=== PATIENT | male | born 1940 | race Caucasian/White ===

== ENCOUNTER → 2023-03-25 11:54 | Outpatient (CLI) | payer MEDICARE, OTHER, SELFPAY ==
[2023-03-25 12:27] LABS: Appearance Urine UA CLOUDY; Bilirubin Urine UA NEGATIVE (NEGATIVE); Color Urine UA YELLOW; Glucose Urine UA 1+ g/dL (Negative); Ketones Urine UA NEGATIVE (NEGATIVE); Leukocyte Esterase Urine UA 3+ (NEGATIVE); Nitrite Urine UA NEGATIVE (Negative); Occult Blood Urine UA 3+ (Negative); Protein Urine UA 2+ (Negative); Urobilinogen Urine UA 0.2 E.U./dL (0.2)
[2023-03-25 12:32] LABS: Bacteria Urine Many (>30); Culture Indicated Urine Specimen Cultured; RBC Urine 30-100/HPF (0-5/HPF); Squamous Epithelial Cell Urine 1-5 /HPF (0-5/HPF); WBC Urine 30-100/HPF (0-5/HPF)
[2023-03-25 13:08] LABS: Add Manual Diff / Slide Review NO; Basophils Absolute Auto 0 /uL (0-100); Basophils Percent Auto 0.4 % (0-2); Eosinophils Absolute Auto 200 /uL (0-450); Hematocrit 36.1 % (41-53); Hemoglobin 12.1 g/dL (13.5-17.5); Lymphocytes Absolute Auto 1500 /uL (1100-4500); Mean Corpuscular HGB Conc 33.6 % (30-36); Mean Corpuscular Hemoglobin 32.4 PG (26-34); Mean Corpuscular Volume 96.4 fL (80-100); Monocytes Absolute Auto 600 /uL (0-900); Monocytes Percent Auto 8.3 % (3-14); Neutrophils Absolute Auto 5200 /uL (1500-7000); Neutrophils Percent Auto 69.3 % (50-75); Platelet Count 254 X10^3/uL (150-400); Red Blood Cell Count 3.74 X10^6/uL (4.5-5.9); Red Cell Distribution Width 15.1 % (11.6-14.8); White Blood Cell Count 7.5 X10^3/uL (4.5-11.0)
[2023-03-25 13:25] LABS: BUN Creatinine Ratio 32.9 (6-22); Blood Urea Nitrogen 23 mg/dL (9-20); Calcium 10.3 mg/dL (8.4-10.2); Carbon Dioxide 28 mmol/L (22-32); Chloride 100 mmol/L (98-107); Estimated Glomerular Filt Rate > 60 mL/min (>60); Glucose 244 mg/dL (80-110); HEMOLYSIS < 15 (0-50); Hemoglobin A1C% w Est Avg Glu 8.6 % (4.0-6.0); Potassium 3.9 mmol/L (3.4-5.1); Sodium 135 mmol/L (137-145)
== END ==
PROVIDERS: Family Provider Nurse Practitioner Family; PCP Nurse Practitioner Family; Referring Provider Orthopaedic Surgery; Visit Provider Orthopaedic Surgery
DX: Z01.818 Encounter for other preprocedural examination (principal); R73.9 Hyperglycemia, unspecified; Z01.812 Encounter for preprocedural laboratory examination; N39.0 Urinary tract infection, site not specified
CPT/HCPCS: 36415; 80048; 81001; 83036; 85025; 87077; 87086; 87186; 93005

== ENCOUNTER → 2023-03-29 15:33 | Outpatient (CLI) | payer MEDICARE, OTHER, SELFPAY ==
--- NOTE | 2023-03-29 15:34 | DI.ECHO.S_ITS ---
[facility] +---------+ : : [address] : : : : [id number] : : : : Phone: [phone]+ Echocardiogram Report + + :Name: VIKTORIA MEADOWS Study Date: 03/29/2023 Height: 67 in : :[facility] ReadingLocation: Weight: 245 lb : : Gender: Male BSA: 2.2 m2 : :: 1940 Age: 82 yrs BP: 168/100 mmHg: :Reason For Study: Shortness of Breath : :Ordering Physician: DARIANA, : :TONY Performed By: Alivia Magdaleno : :Referring: TONY WESTBROOK : + + Interpretation Summary The left ventricle is normal in size. The ejection fraction is estimated to be 55-60%. There are no obvious focal wall motion abnormalities noted but poor endocardial definition reduces the sensitivity for the detection of such. Diastolic parameters suggest a relaxation abnormality of the left ventricle, consistent with probable normal filling pressures. The left atrium grossly appears normal in size. Procedure: A two-dimensional transthoracic echocardiogram with color flow and Doppler was performed. The study quality was technically difficult. There is no prior echocardiogram noted for this patient. A contrast injection of Definity was performed to improve assessment of LV function. Left Ventricle: The left ventricle is normal in size. The ejection fraction is estimated to be 55-60%. There are no obvious focal wall motion abnormalities noted but poor endocardial definition reduces the sensitivity for the detection of such. Diastolic parameters suggest a relaxation abnormality of the left ventricle, consistent with probable normal filling pressures. Right Ventricle: The right ventricle is not well visualized. Atria: The left atrium grossly appears normal in size. Right atrium not well visualized. Mitral Valve: The mitral valve is not well visualized. There is no mitral valve stenosis. There is trace mitral regurgitation. Aortic Valve: The aortic valve is not well visualized. There is no aortic valve stenosis. No aortic regurgitation is present. Tricuspid Valve: The tricuspid valve is not well visualized. There is no tricuspid stenosis. There is trace tricuspid regurgitation. Pulmonic Valve: The pulmonic valve is not well visualized. There is no pulmonic valvular stenosis. There is trace pulmonic regurgitation. Great Vessels: The aortic root is normal size. The ascending aorta is normal in size. The pulmonary is not well visualized. The inferior vena cava was not well visualized. Pericardium/ Pleura There is no pericardial effusion. There is no pleural effusion. MMode/2D Measurements & Calculations LVOT diam: 1.9 cm LA A2 area: 9.9 cm2 Ao root diam: 2.6 cm LA A4 area: 10.1 cm2 asc Aorta Diam: 3.3 cm LA length (vol): 4.0 cm LA vol: 21.5 ml LA vol index: 9.7 ml/m2 RVD1 (basal): 4.2 cm LVLs ap4: 5.9 cm LVLd ap2: 8.2 cm LVLs ap2: 6.1 cm Doppler Measurements & Calculations Ao V2 max: 127.5 cm/sec LVOT Max Miguelito: 97.0 cm/sec Ao V2 mean: 83.0 cm/sec LV V1 max P.8 mmHg Ao max P.0 mmHg LV V1 VTI: 18.6 cm Ao mean P.5 mmHg BRENDA(I,D): 2.3 cm2 Ao V2 VTI: 22.7 cm BRENDA(V,D): 2.2 cm2 sev ratio: 0.82 BRENDA indexed to BSA (cm^2/m^2): 1.1 MV E max miguelito: 53.5 cm/sec PA V2 max: 95.9 cm/sec MV A max miguelito: 89.5 cm/sec PA V2 mean: 65.8 cm/sec MV E/A: 0.60 PA mean P.0 mmHg Med Peak E' Miguelito: 5.7 cm/sec E/E' med: 9.4 Lat Peak E' Miguelito: 5.3 cm/sec E/E' lat: 10.2 E/e' average: 9.8 MV dec time: 0.19 sec SV(LVOT): 52.7 ml AV VR_phl: 0.76 BRENDA(VTI)/BSA_phl: 1.1 Reading Physician:05:24 PM
== END ==
PROVIDERS: Family Provider Nurse Practitioner Family; PCP Nurse Practitioner Family; Referring Provider Nurse Practitioner; Visit Provider Nurse Practitioner
DX: R06.02 Shortness of breath (principal)
CPT/HCPCS: 93306; Q9957

== ENCOUNTER → 2023-05-15 13:34 | Outpatient (CLI) | payer MEDICARE, OTHER, SELFPAY ==
--- NOTE | 2023-05-16 19:11 | DI.NM.S_ITS ---
DATE OF SERVICE: 05/16/2023 PROCEDURE: Pharmacological perfusion study. INDICATIONS: Preop evaluation with underlying diabetes mellitus, hypertension and hyperlipidemia. RADIOPHARMACEUTICAL: 24.8 millicurie technetium-99m Myoview IV was injected at stress and 25.8 millicurie technetium-99m Myoview IV was injected at rest. CARDIAC STRESS: The patient underwent IV Lexiscan perfusion study under the supervision of an attending staff using standard intravenous Lexiscan protocol. The patient remained hemodynamically stable. Blood pressure 124/80 at rest. Baseline rhythm sinus. During stress, no convincing ischemic changes. No significant arrhythmias. Had minimal dyspnea. No chest discomfort. RAW DATA: There is increased subdiaphragmatic activity. There is a gut shadow encroaching the inferior border of the heart. The patient's weight is 242 pounds. GATED STUDY: Resting LV ejection fraction 73 and stress LV ejection fraction 78% without any obvious wall motion abnormalities. Resting end- diastolic volume 77 mL. TID ratio 1.16, which is within normal limits. Lung/heart ratio 0.36, which is within normal limits. MYOCARDIAL PERFUSION SCAN: Please note that this patient does not have any prone images. Stress supine and resting supine images were compared to each other. There appears to be predominantly fixed minimally decreased perfusion of distal inferolateral wall without any significant ischemic burden. CONCLUSION: 1. No obvious reversible ischemia. 2. Predominantly fixed minimally decreased perfusion of distal inferolateral wall. There are no prone images to distinguish tissue attenuation artifact versus very minimal ischemia in the distal inferolateral wall. However, on raw images there is increased subdiaphragmatic activity with gut shadow encroaching the inferior border of the heart. The patient's weight is 242 pounds. There are no wall motion abnormalities to suggest previous myocardial infarction. Stress left ventricular ejection fraction 78% and resting LV ejection fraction 73%. No transient ischemic dilatation. Hence, most likely this is due to tissue attenuation artifact. 3. Overall, low-risk myocardial perfusion study. Garrett Mathews - Alecia/tommy doc#: [id number]/job#: [id number] dd: 05/16/2023 13:09:00 dt: 05/16/2023 18:44:00 DICTATING MD/COPIES TO: Gracie Elmore MD COPIES MNE: MYESHA;
== END ==
PROVIDERS: Family Provider Nurse Practitioner Family; PCP Nurse Practitioner Family; Referring Provider Internal Medicine Cardiovascular Disease; Visit Provider Internal Medicine Cardiovascular Disease
DX: Z01.810 Encounter for preprocedural cardiovascular examination (principal); R06.02 Shortness of breath; E11.9 Type 2 diabetes mellitus without complications; I10 Essential (primary) hypertension; E78.5 Hyperlipidemia, unspecified; Z79.84 Long term (current) use of oral hypoglycemic drugs
CPT/HCPCS: 78452; 93017; A9502; J2785

== ENCOUNTER → 2023-08-20 09:06 | Outpatient (CLI) | payer MEDICARE, OTHER, SELFPAY ==
[2023-08-20 10:31] LABS: Add Manual Diff / Slide Review NO; Basophils Absolute Auto 0 /uL (0-100); Basophils Percent Auto 0.4 % (0-2); Eosinophils Absolute Auto 200 /uL (0-450); Eosinophils Percent Auto 2.7 % (2-4); Hematocrit 41.1 % (41-53); Hemoglobin 13.8 g/dL (13.5-17.5); Lymphocytes Absolute Auto 2300 /uL (1100-4500); Lymphocytes Percent Auto 30.8 % (25-40); Mean Corpuscular HGB Conc 33.5 % (30-36); Mean Corpuscular Hemoglobin 32.9 PG (26-34); Mean Corpuscular Volume 98.3 fL (80-100); Monocytes Absolute Auto 800 /uL (0-900); Monocytes Percent Auto 10.3 % (3-14); Neutrophils Absolute Auto 4100 /uL (1500-7000); Neutrophils Percent Auto 55.8 % (50-75); Platelet Count 224 X10^3/uL (150-400); Red Blood Cell Count 4.18 X10^6/uL (4.5-5.9); Red Cell Distribution Width 16.1 % (11.6-14.8); White Blood Cell Count 7.3 X10^3/uL (4.5-11.0)
[2023-08-20 11:00] LABS: BUN Creatinine Ratio 35.9 (6-22); Blood Urea Nitrogen 28 mg/dL (9-20); Calcium 10.5 mg/dL (8.4-10.2); Carbon Dioxide 29 mmol/L (22-32); Chloride 106 mmol/L (98-107); Estimated Glomerular Filt Rate > 60 mL/min (>60); Glucose 171 mg/dL (80-110); HEMOLYSIS < 15 (0-50); Potassium 4.3 mmol/L (3.4-5.1); Sodium 140 mmol/L (137-145)
== END ==
PROVIDERS: Family Provider Nurse Practitioner Family; PCP Nurse Practitioner Family; Referring Provider Orthopaedic Surgery; Visit Provider Orthopaedic Surgery
DX: Z01.812 Encounter for preprocedural laboratory examination (principal)
CPT/HCPCS: 36415; 80048; 85025

== ENCOUNTER → 2023-08-27 11:03 | Outpatient (CLI) | payer MEDICARE, OTHER, SELFPAY ==
[2023-08-27 12:32] LABS: Hemoglobin A1C% w Est Avg Glu 6.7 % (4.0-6.0)
== END ==
PROVIDERS: Family Provider Nurse Practitioner Family; PCP Nurse Practitioner; Referring Provider Orthopaedic Surgery; Visit Provider Orthopaedic Surgery
DX: R73.9 Hyperglycemia, unspecified (principal)
CPT/HCPCS: 36415; 83036

== ENCOUNTER 2023-09-05 11:57 | Inpatient (IN) | payer MEDICARE, OTHER, SELFPAY ==
[2023-08-23 09:46] VITALS: BMI 35.3
[2023-09-05] VITALS (16 sets, daily range): BP systolic 77–146; BP diastolic 42–84; PULSE 87–108; RESP 16–24; TEMP 35.7–36.8; O2SAT 91–95; BMI 34.0; BMI 35.9
--- NOTE | 2023-09-05 06:00 | DI.RAD.S_ITS ---
PROCEDURE: XR PELVIS 1-2V INDICATIONS: INNER OP TECHNIQUE: 1 view of the lower pelvis acquired. COMPARISON: None. FINDINGS: Bones: Intraoperative study shows left total hip arthroplasty in progress. Soft tissues: Overlying postoperative changes are noted. No suspicious soft tissue densities. IMPRESSION: Intraoperative image of pelvis shows left total hip arthroplasty in progress. Dictated by: Oleg Kendrick M.D. on 09/06/2023 at 11:13 Approved by: Oleg Kendrick M.D. on 09/06/2023 at 11:14
[2023-09-05] MEDS: ACETAMINOPHEN 325 MG TABLET 975 MG PO (12:59)
[2023-09-05] MEDS: CELECOXIB 200 MG CAPSULE PO (12:59)
[2023-09-05] MEDS: LACTATED RINGERS 1,000 ML 42 ML IV ×2 (12:59→17:30)
[2023-09-05] MEDS: VANCOMYCIN 1,000 MG/200 ML PIGGYBACK 200 MG IV (14:00)
[2023-09-05 14:22] LABS: Appearance Urine UA SL CLOUDY; Bilirubin Urine UA NEGATIVE (NEGATIVE); Color Urine UA YELLOW; Glucose Urine UA NEGATIVE (Negative); Ketones Urine UA NEGATIVE (NEGATIVE); Leukocyte Esterase Urine UA 3+ (NEGATIVE); Nitrite Urine UA POSITIVE (Negative); Occult Blood Urine UA 3+ (Negative); Protein Urine UA TRACE (Negative); Urobilinogen Urine UA 0.2 E.U./dL (0.2)
[2023-09-05 14:30] LABS: Urine Volume 10mL (spun)
[2023-09-05 14:31] LABS: Bacteria Urine Many (>30); Culture Indicated Urine Specimen Cultured; RBC Urine 10-30/HPF (0-5/HPF); Squamous Epithelial Cell Urine None Seen (0-5/HPF); WBC Urine >100/HPF (0-5/HPF)
--- NOTE | 2023-09-05 15:00 | PM.PREOP ---
Pre-operative Note Interval Note History & Physical reviewed/Exam performed by Physician: Yes Changes to H&P: No
--- NOTE | 2023-09-05 15:01 | PM.OP.1 ---
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 Non-operative management has failed and the patient has requested total hip replacement. The risks, benefits and alternatives to surgery were discussed with the patient prior to proceeding. Risks discussed included, but were not limited to, failure to relieve pain, leg length discrepancy, dislocation, stiffness, infection, nerve damage, deep venous thrombosis, pulmonary embolism, stroke, coma, heart attack, permanent paralysis and , as well as the potential need for eventual revision of the prosthetic. Surgeon: Gracie Contreras Mailing Machine Operator: Juventino Hall Anesthesia Type: General and Spinal Operative Notes Findings: Severe left hip osteoarthritis, extremely soft and collapsed acetabulum, adequate femoral bone, adequate stability Closure Type: primary Specimen(s): none sent Prosthetic devices, grafts, tissues, transplants, or devices: Contreras and nephew R3 50mm, neutral poly liner, one 6.5 mm screw, size 11 synergy stem uncemented high offset, 36 x 50 acetabular liner, 36+ 0 cobalt chrome head, Estimated Blood Loss (mL): 250 Blood products transfused: none Procedure in detail: The patient was seen in the pre-operative area, where the patient identified the left hip as the operative site and this was marked with my initials. The patient received pre-operative antibiotics and was taken to the operating room and placed on the operative table in the right lateral decubitus position after satisfactory anesthesia. A registered phlebotomist part time out? was performed. The left leg was prepared from the ankle to the iliac crest with ChloroPrep in the usual fashion and draped through sterile drapes. A PA was used during the procedure was essential for intraoperative retraction and safe implantation of the components. The hip was approached through an approximately 20 cm incision centered over the greater trochanter and curving gently posteriorly as it went proximally. This was carried sharply to the fascia rl, which was divided and retracted with a self retaining retractor. The trochanteric bursa was excised with care being taken to avoid the sciatic nerve, which was identified and protected throughout the case. The short external rotators were incised and the capsulomuscular flap was raised and tagged for later repair. The hip was dislocated, and a femoral neck osteotomy performed approximately 15 mm above the lesser trochanter. Retractors were placed around the femur. The canal was opened with a box cutting osteotome, followed by a T handled reamer and a lateralizing reamer. The chili pepper broach was then used, followed by sequential broaching until there was good stability of the broach in the femur. Retractors were placed to expose the acetabulum. The labrum and central soft tissues were removed. Reaming was performed initially going up in 2 mm increments, then 1 mm increments until good bite was obtained with an odd sized reamer. The cup 1 mm larger than the last reamer was then inserted using the appropriate anteversion guides. It was further stabilized with a single screw. A trial neutral liner was placed. The broach was placed in the canal. A trial head and neck were then placed and the hip relocated and checked for leg length and stability. An intraoperative film confirmed the component position and no evidence of fracture. The patient was stable in the position of sleep, of squatting, and could be put through a range of motion with 45 degrees internal rotation without dislocation. At 90 degrees flexion, internal rotation to 70?. Was possible before dislocation. This was felt to be satisfactory and the appropriate components were opened, and the trials were removed. The acetabular liner was impacted into position. There was bite on the stem but better rotational stability when went up to a size 11 stem. The final stem was then impacted into the prepared femoral canal. A brief Betadine soak was performed while trialing with head options. The hip was meticulously irrigated with normal saline. Finally the femoral head was impacted onto the stem. The acetabulum was cleared of all material and the hip relocated one final time. The capsulomuscular flap was then repaired to the greater trochanter though an awl hole using the tag sutures. The short external rotators were repaired with a nonabsorbable suture. A deep drain was placed and brought out anteriorly. The fascia rl was closed with Vicryl. The subcutaneous layer was closed with barbed sutures and skin pavel. A ghada Dressing was applied and the patient was taken to recovery having tolerated the procedure well. Complications: none Post-operative Condition: stable Disposition: Acute Care Plan for aftercare: The patient will be maintained on a standard total hip replacement protocol with weight bearing as tolerated and posterior hip precautions. The patient will receive Aspirin and sequential compression devices for DVT prophylaxis. The patient will be discharged home when safe for the home environment.
[2023-09-05] MEDS: CEFAZOLIN 2 GM/100 ML PREMIX 100 ML IV ×2 (15:47→20:41)
[2023-09-05] MEDS: TRANEXAMIC ACID 1,000 MG VIAL 1000 MG INJ ×2 (15:55→17:29)
--- NOTE | 2023-09-05 16:22 | SUR.OPER ---
Lateral on padded OR bed. Gel axillary roll. Arms secured on padded armboard with pillow supporting top arm. Padded hip positioner braces x4 - anterior and posterior chest and pelvis. Additional gel pad used anterior pelvis. Gel pad under bottom leg from knee to foot and secured with tape over sheet.
[2023-09-05] MEDS: BUPIVACAINE 0.25% (PF) 60 ML, EPINEPHrine 0.3 MG INJ (16:26)
[2023-09-05] MEDS: BUPIVACAINE LIPOSOME 266 MG/20 ML VIAL INJ (16:26)
[2023-09-05] MEDS: NYSTATIN CREAM 30 GM 1 APPLIC TOP (17:35)
--- NOTE | 2023-09-05 18:00 | DI.RAD.S_ITS ---
PROCEDURE: XR HIP W PEL IF DONE LT 2V INDICATIONS: POST OP POSTERIOR HIP LEFT TECHNIQUE: AP pelvis and lateral view of the hip acquired. COMPARISON: None. FINDINGS: Bones: Patient is status post left hip arthroplasty, with hardware components in expected positions. The hip joint appears congruent. The visualized bony structures appear intact. Soft tissues: Overlying postoperative changes are noted. No suspicious soft tissue densities. Ni catheter present. IMPRESSION: Expected post-operative appearance of a hip arthroplasty. Dictated by: Jayjay Zhang M.D. on 09/05/2023 at 19:11 Approved by: Jayjay Zhang M.D. on 09/05/2023 at 19:11
[2023-09-05] MEDS: LACTATED RINGERS 1,000 ML 100 ML IV (20:07)
[2023-09-05] MEDS: ACETAMINOPHEN 325 MG TABLET 650 MG PO (20:40)
[2023-09-05] MEDS: ASPIRIN EC 81 MG TABLET PO (20:40)
[2023-09-05] MEDS: OXYCODONE IR 5 MG TABLET PO (21:23)
[2023-09-05] MEDS: TAMSULOSIN 0.4 MG CAPSULE PO (21:23)
[2023-09-05] MEDS: IBUPROFEN 400 MG TABLET PO (21:23)
[2023-09-05] MEDS: FINASTERIDE 5 MG TABLET PO (21:23)
[2023-09-05] MEDS: DOCUSATE 100 MG CAPSULE PO (21:23)
[2023-09-05] MEDS: hydroCHLOROthiazide 25 MG TABLET 12.5 MG PO (21:44)
[2023-09-05] MEDS: INSULIN LISPRO 100 UNIT/ML 3ML VIAL SUBCUT (21:45)
[2023-09-06] VITALS (7 sets, daily range): BP systolic 97–135; BP diastolic 55–65; PULSE 70–104; RESP 17–18; TEMP 35.7–37.1; O2SAT 92–98
[2023-09-06] MEDS: IBUPROFEN 400 MG TABLET PO ×2 (01:12→07:44)
[2023-09-06] MEDS: OXYCODONE IR 5 MG TABLET PO ×6 (01:13→20:59)
[2023-09-06] MEDS: LACTATED RINGERS 1,000 ML 100 ML IV (01:13)
--- NOTE | 2023-09-06 01:29 | PC.NURSE ---
lieutenant shift supervisor: Patient arrived from PACU approximately 1850. Patient is AxOx4, VSS, left hip incision covered w/ aquacel drsg is CDI. CMS intact. Continuous tele monitoring placed. Complaints of moderate left leg pain, medicated as ordered w/ good effect. Has not gotten OOB, Q2 turning. Declined SCDs, stating that it increases pain. IVF & IV abx infused as ordered. Lung sounds are CTA. Ni in place. Oriented to room & call-light. Sleeping w/ CPAP. Plan of care ongoing.
[2023-09-06] MEDS: CEFAZOLIN 2 GM/100 ML PREMIX 100 ML IV (02:06)
[2023-09-06 04:38] LABS: Hematocrit 35.4 % (41-53)
[2023-09-06] MEDS: ACETAMINOPHEN 325 MG TABLET 650 MG PO (04:44)
[2023-09-06] MEDS: allopurinoL 100 MG TABLET 300 MG PO (08:10)
[2023-09-06] MEDS: DOCUSATE 100 MG CAPSULE PO ×2 (08:10→20:59)
[2023-09-06] MEDS: METFORMIN HCL 500 MG TABLET PO (08:11)
[2023-09-06] MEDS: ASPIRIN EC 81 MG TABLET PO ×2 (08:11→20:59)
[2023-09-06] MEDS: ATORVASTATIN 20 MG TABLET 10 MG PO (08:11)
[2023-09-06] MEDS: LORATADINE 10 MG TABLET PO (08:11)
[2023-09-06] MEDS: INSULIN LISPRO 100 UNIT/ML 3ML VIAL SUBCUT ×4 (08:14→21:00)
[2023-09-06] MEDS: INSULIN GLARGINE 100 UNIT/ML 3ML PEN 29 UNIT SUBCUT (08:19)
--- NOTE | 2023-09-06 09:05 | PT.IIE ---
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) Surgery Performed Operation Date: 09/05/23 13:45 Actual Procedures p Total Hip Arthroplasty(Left) - Gracie Contreras MD Surgical History (Last Updated 08/23/23 @ 10:14 by Mary Diego, RN) H/O vasectomy History of total left knee replacement History of total right knee replacement Hx of hernia repair Hx of laminectomy Medical History (Last Updated 08/23/23 @ 10:36 by Mary Diego RN) Diabetes (~2022) Edema Enlarged prostate Ni catheter in place (2023) HLD (hyperlipidemia) Kidney stones VILLA on CPAP Osteoarthritis Seasonal allergies Uses self-applied continuous glucose monitoring device Physical Therapy Inpatient Evaluation/Re-Eval M1 PT/OT-IP Prior Functional Status Start: 09/06/23 12:32 Freq: NEEDED Status: Active Protocol: Document 09/06/23 09:05 AB (Rec: 09/06/23 12:52 AB [id number]) Medical Review Prior Functional Status Medical History Reviewed Yes Communication able to make needs known Mobility and Gait pt stated that he was modified independent with all mobilities and ambulation using a FWW; pt able to drive prior to sx Activities of Daily Living and IADL's pt stated that he usually sponge bathes but after a few weeks goes up to 2nd level of the house to take a shower Social History Household Members none Living Arrangements House Number of Floors (Floors) Two Floors Number of Stairs To Enter/Railing? pt stays on the main level of the house has 2 steps without rails to enter the house pt has his shower upstairs: 17 steps L rail ascending + R ledge Home Environment Standard Height Toilet,Walk in Shower,Built-In Shower Seat Home Equipment Front Wheel Walker,Hand Held Shower,Grab Bars In Shower Additional Social History Comment pt has an adjustable bed and a recliner M2 PT-IP Current Condition Start: 09/06/23 12:32 Freq: NEEDED Status: Active Protocol: Document 09/06/23 09:05 AB (Rec: 09/06/23 12:52 AB [id number]) Physical Therapy Current Condition Current Condition Evaluation Date 09/06/23 Treatment Diagnosis s/p L REILLY posterior; difficulty in walking Onset Date 09/05/23 M3 PT-IP Subjective Start: 09/06/23 12:32 Freq: NEEDED Status: Active Protocol: Document 09/06/23 09:05 AB (Rec: 09/06/23 12:52 AB [id number]) Subjective Physical Therapy Visit Type Type Initial Evaluation Visit Start Time 09:05 Visit Stop Time 10:05 Number of SIZER HAND Visits 0 Physical Therapy Visit Comments Patient Comments agreeable to do PT Therapy Pain Assessment Pain When Pain Assessed At Rest Pain Present Pain Present Pain Reported Location Left Lower Leg Intensity 7 Scale Used Numeric (0 - 10) Description Sharp Pain Behaviors Facial Grimacing,Guarding, Holding Area,Restlessness, Wincing Pain Management Techniques Apply Cold,Distraction, Modification of Treatment,Re- positioning,Timing of Activity with Medications M4 PT-IP Mobility and Gait Start: 09/06/23 12:32 Freq: NEEDED Status: Active Protocol: Document 09/06/23 09:05 AB (Rec: 09/06/23 12:52 AB [id number]) PT-Bed Mobility Assessment Supine to Sit Supine to Sit Maximum Assistance,1 Person Assistance Scooting Scooting to Edge of Bed Maximum Assistance PT-Transfer Assessment Sit to and From Stand Sit to and from Stand Maximum Assistance,2 Person Assistance,Use of Upper Extremities Equipment Transfer Assistive Device Gait Belt,Front Wheeled Walker Orthotic/Prosthetic Devices or Brace: No Transfers Transfer Destination Chair Transfer Technique Squat Pivot Transfer Ability Level of Assist Maximum Assistance,2 Person Assistance,Use of Upper Extremities Comments Mobility Comments pt supine in bed and agreeable to do PT. obtained PLOF and home set up from pt. pt stated that he lives alone and he plans to go to SNF and that the ortho doctor is aware and will process SNF placement per pt. post-op folder provided to pt and reviewed contents. educated pt regarding posterior hip precautions. pt able to recall 2/3 posterior hip precautions. BP in supine: 111/64 VT: 107 and O2 sat 90-93% pt completed supine to sit max A and max cues. required max A x 1-2 for scooting to EOB. BP in sittin/87 and VT 116/-124. O2 sat: 91-92% at RA. pt has 1/5 MMT strength on L foot presenting a foot drop. pt completed sit to stand max A x 2 and max cues with (+) L knee buckling. instructed pt to sit back on EOB. educated on L quads activation. pt completed sit to stand again max A x 2 and max cues. pt continues to be unsteady unable to maintain standing position despite max A x 2 using a FWW. pt sat back on EOB. positioned chair next to pt. attempted transfer to chair and completed partial stand/squat pivot transfer max A x 2 and max cues with pt reaching for arm rest of chair and PT stabilizing pt and LLE . positioned pt on the chair. call light and table placed within reach. Nurse in room and assist pt with PT. informed nurse that pt will require a mechanical lift for transfers with nursing staff at this time. Gait Assessment Comments Gait Comments unable at this time PT-Balance Assessment Sitting Balance and Reactions Static Sitting Balance Ability Good Dynamic Sitting Balance Ability Fair Standing Balance and Reactions Static Standing Balance Ability Poor Dynamic Standing Balance Ability Poor Device Used FWW M5 PT-IP Objective Assessments Start: 09/06/23 12:32 Freq: NEEDED Status: Active Protocol: Document 09/06/23 09:05 AB (Rec: 09/06/23 12:52 [id number]) Orientation Orientation/Cognition Level of Alertness Alert Orientation Name,Place,Situation Language Function Ability No Deficits Noted Safety Awareness Decreased Safety Awareness Memory Description Short Term Impaired Gross Range of Motion Lower Extremity ROM Assessment Within Functional Limits Strength Lower Extremity Strength Assessment Left Impaired Hip 3+/5 Knee 3+/5 Ankle DF: 1/5 Sensation Assessment Sensation Gross Sensation WNL Muscle Tone Comments Muscle Tone Comments L foot drop M6 PT-IP Treatment Start: 09/06/23 12:32 Freq: NEEDED Status: Active Protocol: Document 09/06/23 09:05 AB (Rec: 09/06/23 12:52 [id number]) Physical Therapy Treatment Education Education Provided Precautions,Weight Bearing Status,Post-Op Packet,Safety M7 PT-IP Assessment and Plan Start: 09/06/23 12:32 Freq: NEEDED Status: Active Protocol: Document 09/06/23 09:05 AB (Rec: 09/06/23 12:52 [id number]) PT Summary Assessment and Plan Potential Rehabilitation Potential Fair Status of Condition at Evaluation Evolving Summary Impairments Pain,ROM,Strength,Balance, Coordination,Sensation,Tone, Cognition,Bed Mobility, Transfers,Gait,Activity Tolerance Assessment Summary pt is an 83 y/o M s/p L REILLY posterior approach POD 1. pt with L hip posterior precautions and is WBAT. pt requiring max A x 2 for transfers with (+) L knee buckling and has L foot drop. Recommending use of mechanical lift transfers with nursing staff at this time. Pt will require SNF rehab to improve overall strength and mobility. Goals Bed Mobility Goal Minimal Assistance Transfer Goal Minimal Assistance,Front Wheeled Walker Gait Goal Minimal Assistance,Front Wheel Walker Gait Distance 25 Other Goals improve bed mobility, trasnfers, ambulation using LRAD ~ 150 ft mod I up/down 2 steps using LRAD SBA Days to Meet Goals 10 Frequency of Treatment Frequency Of Treatment Twice a Day Treatment Plan Physical Therapy Treatment Plan Bed Mobility Training,Transfer Training,Gait Training, Therapeutic Exercise,Balance Retraining,Post Op Education, Discharge Planning,Hot or Cold Pack,Neuromuscular Re-ed, Coordination Retraining,Manual Therapy Precautions Posterior Hip Precautions No Hip Flexion > 90 degrees,No Hip Internal Rotation,No Hip Adduction Weight Bearing Status Weight Bearing Status Weight Bear as Tolerated Allowed Weight Bearing Amount (enter % LLE WBAT or #) (%) Recommendations To Nursing Amount of Assist Needed Mechanical Lift Discharge Recommendations PT Discharge Recommendations SNF Rehab Transportation Needs at Discharge Wheelchair/Cabulance
--- NOTE | 2023-09-06 11:47 | CM.DANOTE ---
Addendum entered by CIPRIANO Trejo 09/06/23 12:37: ADD: Return call from Jessica at [facility] and she confirms they can accept pt and if ready Sun they should have the staff to accept on the weekend. BF Original Note: Patient is an 83 yo male who was [place] on 09/05[place]23 for LTHA. Pt has [employer] and [employer] for insurance and his PCP is Naomie Helm. EMR was reviewed. Per Ortho, pt tolerated procedure well and to work with PT/OT today and likely SNF at discharge. PT/OT ordered and pending for today. SW met bedside with pt and explained role and he confirms he lives in [place] alone but has local supportive Dtr a few minutes away. Pt is independent with ADLs at baseline and drives and confirms his Dtr Bhavna is his DPOA. Pt denies any hx of HH but went to [facility] after his last Ortho surgery a few years ago. Pt confirms that Dtr has limited ability to assist at d/c as she is still working and his preference at discharge is SNF and after reviewing the SNF Choice List his preference remains [facility] where he has been before. SW called [facility] admissions with new referral and they will review to confirm if they can accept. PASRR done in anticipation of SNF. Plan: SW to follow closely today to confirm if [facility] can accept and then further SNF referrals if [facility] not an option. CIPRIANO Trejo Discharge Planning/Care Management CM Discharge Assessment Start: 09/06/23 11:45 Freq: Status: Active Protocol: Document 09/06/23 11:45 BF (Rec: 09/06/23 11:47 [id number]) Discharge Planning Assessment Assigned Ski Molder CIPRIANO Gupta DPOA/Assigned Designee Name Dtr Bhavna Mathews Contact Information [phone] Advance Directives? Yes Advance Directives on File No History Provided By Patient,Medical Record Has Patient been admitted in last 30 No days? Prior Living Arrangements House Household Members none Type of transporation used prior to Drives own vehicle admit Independent with ADL's Yes Is patient alert and oriented? Yes Needs Assistance With Home Chores / Shopping Caregiver for Another No Patient/Family Preference [facility] Facility Barriers to Discharge No Discharge Plan [facility] Facility Community Services Physical Therapy,Occupational Therapy Transportation Arrangement Facility van Referrals Initiated [facility] If patient plan is SNF: Has PASSR been Yes completed? Inpatient Status as of 09/05/23 Medicare Choice List Provided Yes Medicare choice list reviewed on patient electronic tablet with SNF/HH Preference [facility] Has Agency SNF been contacted Yes Whiteboard Updated in Patient Room with Yes name and ext. # of Ski Molder Review Status In Process Please Provide Date Initial DC 09/06/23 Assessment Was Performed Next Review Type Continued Stay Review Pre-Anesthesia Assessment Start: 08/23/23 09:46 Freq: Status: Complete Protocol: Document 08/23/23 09:46 CAB (Rec: 08/23/23 10:36 CAB [id number]) Pre-Anesthesia Assessment Preferred Name Garrett Patient Information Reviewed Via Phone Assessment Assessment Completed With Patient Diagnostic Results BMP/CMP,CBC,EKG Primary Care Provider Naomie Helm Specialist Seen Delphi Developer,Orthopedist Primary Language Moroccan Spring Fitter Helper Required No Height 177.8 cm Weight 111.584 kg Body Mass Index (BMI) 35.3 Hearing Ability Normal Visual Assist Glasses Dentition Type Teeth, Natural Present,Teeth, Missing Barriers to Learning None Other Aids Yes: CPAP Hx Anesthesia Reactions No Hx Family Anesthesia Reaction No Hx Malignant Hyperthermia No Hx Blood Transfusions No Anesthesia Review Requested Yes: Surgeon requested re: Cardiac history Waitress Yes: Lives alone, minimal assit from daughter, surgeon talked about DC to SNF alcohol intake never Smoking Status Former smoker how long ago did patient quit smoking 1964 Substance Use Type does not use Pain Present Pain Reported Musculoskeletal Symptoms Abnormal Gait,Difficulty Walking,Joint Pain History of Falling (Recent or History of No ) Patient is completely paralyzed or No completely immobile Prosthesis or Orthotic Device Front Wheel Walker Mental Status Oriented to own ability Is patient on oxygen? No Does patient have LUNA/SOB No Hx Sleep Apnea Yes CPAP/BIPAP use prescribed and used routinely Will Bring CPAP/BIPAP DOS Yes Currently Taking a Beta Ray No Can You Climb a Flight of Stairs Without Yes SOB Hx Chest Pain No Hx SOB No Hx Syncope or Dizziness No Anti-Coagulant Therapy No Has a Delphi Developer Yes: Pre-op 04/22/[address] Billy Cardiac Testing Yes: Nuc stress, Echo @ [facility] Hx Pacemaker/ICD No Pacemaker Rep Required? No Cardiac Clearance Received Yes Comment Cardiac records scanned and in surgery folder Diet Type At Home Regular,Low Carb Dysphagia No Gastrointestinal Symptoms None Urinary Catheter Present Yes: Youngblood catheter in place for enlarged prostate, retention Hx Urinary Self Catheterization No Diabetes Yes HgbA1C 8.6 Date 03/25/23 Hx Drug Resistant Organism Yes: MRSA+ Presence of External or Internal Medical Yes: CGM, CPAP, marck knee Devices prosthesis, youngblood cath Received a COVID vaccine? No Marital Status /- 2022 Lives With none Current Living Arrangements House Number of Floors (Floors) Two Floors Support System Child/Children Comment Daughter only comes over after work, during the day, pt is alone Does the Patient Have Assistance After No Surgery Patient Discharge Plan Description [facility] Facility/Rehab Comment Pt states talking to surgeon about SNF [place] Feels Safe in Current Environment Yes Been Physically Hurt or Threatened By a No Person in Current Environment Do you have thoughts of harming yourself None or others? Are you currently considering suicide? No Do you have a plan to hurt yourself or No Plan others? Do You Have Any Spiritual Beliefs That No May Affect Your HC Choices? Do You Have Any Cultural Practices That No May Affect Your HC Choices? Who Can We Speak to About Patient's Care Family, friends Identifying Code for Release of Patient Declines to issue Information Health Care Proxy/Next of Kin Bhavna (daughter) Health Care Proxy Emergency Contact Name Bhavna (daughter) Emergency Contact Advance Directives? Yes Advance Directives on File No Requested Patient Bring Advanced Yes Directives DOS Power of Python Programmer Yes Power of Python Programmer Name Bhavna (maxi) Power of Python Programmer PAC Instructions Bring CPAP/BIPAP,Diabetes instructions,Durable medical equipment,Medications to take/ avoid,Nasal antibiotic,No ETOH /petroleum product on skin DOS ,NPO,Post-op transportation, Pre-surgical wash,Sensory aids ,Sturdy shoes/comfortable clothes,Do not bring valuables and remove jewelry
--- NOTE | 2023-09-06 11:53 | P.PN_ITS ---
Subjective Subjective Interval history: Garrett is POD#1 s/p left posterior total hip arthroplasty by Dr. Contreras Patient reports he is having 8/10 pain, poorly controlled with the Oxycodone. He describes having shooting pains down his left posterior thigh from his buttocks. Patient states he used a walker for ambulation prior to surgery but was still able to get around and take care of himself. He does live alone however and so he plans to d/c to SNF due to poor mobility and lack of support at home. He was visited by PT this morning but was unable to get up and work with them. He still has a Ni catheter in place due to the lack of mobility. Denies fever, chills, chest pain, SOB, nausea, vomiting. Exam Vital Signs (past 8 hours): - 09/06/23 06:00 09/06/23 07:57 09/06/23 08:41 Temperature 97.7 F 98.7 F Pulse Rate 96 H 100 H Respiratory Rate 18 Blood Pressure 97/55 L 107/60 Pulse Oximetry 94 Oxygen Flow Rate 0 Oxygen Delivery Method Room Air Oxygen Flow Rate 0 Narrative Exam Narrative: Patient is sitting in bedside chair during our interview today. He is periodically jolts and winces with pain down his left leg. Resp Effort & Inspection: normal respiratory effort and able to speak in complete sentences Cardio Rate: regular rate Skin Other: Clean and dry Aquacel dressing intact over the left posterior hip with scant bloody drainage. Neuro General: patient alert, patient awake and patient oriented x3 Extrem Other: Full AROM of left knee. Very weak DF and PF of the left foot. Wiggles toes. Sensation intact throughout the LLE and to all toes equally. Calves soft and non-tender bilaterally. Psych Speech and Movement: speech and movement normal Objective Labs 09/06/23 04:28 Labs: Laboratory Results - last 24 hr 09/05/23 09/06/23 13:25 04:28 Hgb 12.0 L Hct 35.4 L Urine Color Yellow Urine Appearance Sl cloudy Urine pH 7.0 Ur Specific [place] 1.010 Urine Protein Trace H Urine Glucose (UA) Negative Urine Ketones Negative Urine Occult Blood 3+ H Urine Nitrate Positive H Urine Bilirubin Negative Urine Urobilinogen 0.2 Ur Leukocyte Esterase 3+ H Urine RBC 10-30/hpf H Urine WBC >100/hpf H Ur Squamous Epith Cells None seen Urine Bacteria Many (>30) H Ur Culture Indicated? Specimen cultured Vol Urine Centrifuged 10ml (spun) PFSH Medical History (Updated 08/23/23 @ 10:36 by Mary Diego RN) Ni catheter in place (2023) Edema Osteoarthritis Uses self-applied continuous glucose monitoring device Diabetes (~2022) Kidney stones Enlarged prostate HLD (hyperlipidemia) Seasonal allergies VILLA on CPAP Surgical History (Updated 08/23/23 @ 10:15 by Mary Diego RN) Hx of laminectomy History of total left knee replacement History of total right knee replacement H/O vasectomy Hx of hernia repair Social History household members: none Smoking Status: Former smoker alcohol intake: never Assessment & Plan Post-op Postoperative Procedures: Procedures Operation Date: 09/05/23 13:45 Actual Procedure Side Surgeon p Total Hip Arthroplasty Left Gracie Contreras MD Postoperative status narrative: Poor mobility, poor pain control Postoperative plan narrative: 1) Keep dressing intact, clean and dry until 2 week post-op appointment. No soaking the incision site in pools or tubs. No topical ointments or creams to the incision site. 2) Continue multimodal pain management with ice to the hip for additional pain control. Discussed increasing Oxycodone if needed but would prefer to keep 5mg dose to prevent any sedation and therefore further delay in mobility. 3) Weight bearing as tolerated. Maintain posterior hip precautions. Will continue to work on mobility with PT. 4) ASA BID for DVT prophylaxis. 5) Follow up at [facility] in 2 weeks for post-op appointment. Plan to d/c to SNF on POD #3.
--- NOTE | 2023-09-06 13:09 | PT.IPTN ---
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) Surgery Performed Operation Date: 09/05/23 13:45 Actual Procedures p Total Hip Arthroplasty(Left) - Gracie Contreras MD Physical Therapy Treatment Note M2 PT-IP Current Condition Start: 09/06/23 12:32 Freq: NEEDED Status: Active Protocol: Document 09/06/23 09:05 AB (Rec: 09/06/23 12:52 AB [id number]) Physical Therapy Current Condition Current Condition Evaluation Date 09/06/23 Treatment Diagnosis s/p L REILLY posterior; difficulty in walking Onset Date 09/05/23 M3 PT-IP Subjective Start: 09/06/23 12:32 Freq: NEEDED Status: Active Protocol: Document 09/06/23 13:25 TS (Rec: 09/06/23 13:38 TS [id number]) Subjective Physical Therapy Visit Type Type Treatment Note Visit Start Time 13:09 Visit Stop Time 13:25 Number of BUSINESS DEVELOPMENT ANALYST Visits 1 Physical Therapy Visit Comments Patient Comments Pt found resting in chair, reports L knee is buckling and was so before surgery. Pt agreeable to PT. Therapy Pain Assessment Pain When Pain Assessed At Rest Pain Present Pain Present Pain Reported Location Left Lower Leg Intensity 7 Scale Used Numeric (0 - 10) Description Sharp Pain Behaviors Facial Grimacing,Guarding, Holding Area,Restlessness, Wincing Pain Management Techniques Apply Cold,Distraction, Modification of Treatment,Re- positioning,Timing of Activity with Medications M4 PT-IP Mobility and Gait Start: 09/06/23 12:32 Freq: NEEDED Status: Active Protocol: Document 09/06/23 13:25 TS (Rec: 09/06/23 13:38 TS [id number]) PT-Transfer Assessment Sit to and From Stand Sit to and from Stand Maximum Assistance,2 Person Assistance,Use of Upper Extremities Equipment Transfer Assistive Device Gait Belt,Front Wheeled Walker Orthotic/Prosthetic Devices or Brace: No Comments Mobility Comments Pt recalled 1/3 posterior hip precautions prior to mobility (no crossing of legs and internal rotation). STS from chair x3 with MaxA and use of FWW. Pt's performed wbering shifts from side to side in standing and heel raises. Pt's L knee elsa with raising of R heel. He performed Sidesteps x4 to R side and x2 to L side with little feet clearance and some buckling on LLE. Sitting in chair pt performed knee Flext/Ext x5 with no cueing or assist. Pt was left in chair, OT in room, all needs met. Gait Assessment Comments Gait Comments unable at this time PT-Balance Assessment Sitting Balance and Reactions Static Sitting Balance Ability Good Dynamic Sitting Balance Ability Fair Standing Balance and Reactions Static Standing Balance Ability Poor Dynamic Standing Balance Ability Poor Device Used FWW M5 PT-IP Objective Assessments Start: 09/06/23 12:32 Freq: NEEDED Status: Active Protocol: Document 09/06/23 09:05 AB (Rec: 09/06/23 12:52 AB [id number]) Orientation Orientation/Cognition Level of Alertness Alert Orientation Name,Place,Situation Language Function Ability No Deficits Noted Safety Awareness Decreased Safety Awareness Memory Description Short Term Impaired Gross Range of Motion Lower Extremity ROM Assessment Within Functional Limits Strength Lower Extremity Strength Assessment Left Impaired Hip 3+/5 Knee 3+/5 Ankle DF: 1/5 Sensation Assessment Sensation Gross Sensation WNL Muscle Tone Comments Muscle Tone Comments L foot drop M6 PT-IP Treatment Start: 09/06/23 12:32 Freq: NEEDED Status: Active Protocol: Document 09/06/23 13:25 TS (Rec: 09/06/23 13:38 TS [id number]) Physical Therapy Treatment Education Education Provided Precautions,Weight Bearing Status,Post-Op Packet,Safety M7 PT-IP Assessment and Plan Start: 09/06/23 12:32 Freq: NEEDED Status: Active Protocol: Document 09/06/23 13:25 TS (Rec: 09/06/23 13:38 TS [id number]) PT Summary Assessment and Plan Potential Rehabilitation Potential Fair Summary Impairments Pain,ROM,Strength,Balance, Coordination,Sensation,Tone, Cognition,Bed Mobility, Transfers,Gait,Activity Tolerance Progress Towards Goals Slow Progress due to Pain,Slow Progress due to Activity Tolerance Assessment Summary Garrett is making slow progress with his mobility. Garrett continues to have difficulty with wbering on LLE. He has L foot drop and continues to have buckling of LLE when attempting sidesteps and RLE heel raises. He demonstrates some good carryover of STS sequencing and recalled 1/3 posterior hip precautions(no crossing of legs and internal rotation on LLE). PT continues to recommend SNF at this time to progress strength and functional mobility. Goals Bed Mobility Goal Minimal Assistance Transfer Goal Minimal Assistance,Front Wheeled Walker Gait Goal Minimal Assistance,Front Wheel Walker Gait Distance 25 Other Goals improve bed mobility, trasnfers, ambulation using LRAD ~ 150 ft mod I up/down 2 steps using LRAD SBA Days to Meet Goals 10 Frequency of Treatment Frequency Of Treatment Twice a Day Treatment Plan Physical Therapy Treatment Plan Bed Mobility Training,Transfer Training,Gait Training, Therapeutic Exercise,Balance Retraining,Post Op Education, Discharge Planning,Hot or Cold Pack,Neuromuscular Re-ed, Coordination Retraining,Manual Therapy Precautions Posterior Hip Precautions No Hip Flexion > 90 degrees,No Hip Internal Rotation,No Hip Adduction Weight Bearing Status Weight Bearing Status Weight Bear as Tolerated Allowed Weight Bearing Amount (enter % LLE WBAT or #) (%) Recommendations To Nursing Amount of Assist Needed 2 Person Assist Discharge Recommendations PT Discharge Recommendations SNF Rehab Transportation Needs at Discharge Wheelchair/Cabulance
--- NOTE | 2023-09-06 13:45 | OT.IP.EVAL ---
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) Surgery Performed Operation Date: 09/05/23 13:45 Actual Procedures p Total Hip Arthroplasty(Left) - Gracei Contreras MD Past Medical History (Last Updated 08/23/23 @ 10:36 by Mary Diego, RN) Diabetes (~2022) Edema Enlarged prostate Ni catheter in place (2023) HLD (hyperlipidemia) Kidney stones VILLA on CPAP Osteoarthritis Seasonal allergies Uses self-applied continuous glucose monitoring device Surgical History (Last Updated 08/23/23 @ 10:14 by Mary Diego RN) H/O vasectomy History of total left knee replacement History of total right knee replacement Hx of hernia repair Hx of laminectomy Occupational Therapy Inpatient Evaluation/Re-Eval M1 PT/OT-IP Prior Functional Status Start: 09/06/23 12:32 Freq: NEEDED Status: Active Protocol: Document 09/06/23 09:05 AB (Rec: 09/06/23 12:52 AB [id number]) Medical Review Prior Functional Status Medical History Reviewed Yes Communication able to make needs known Mobility and Gait pt stated that he was modified independent with all mobilities and ambulation using a FWW; pt able to drive prior to sx Activities of Daily Living and IADL's pt stated that he usually sponge bathes but after a few weeks goes up to 2nd level of the house to take a shower Social History Household Members none Living Arrangements House Number of Floors (Floors) Two Floors Number of Stairs To Enter/Railing? pt stays on the main level of the house has 2 steps without rails to enter the house pt has his shower upstairs: 17 steps L rail ascending + R ledge Home Environment Standard Height Toilet,Walk in Shower,Built-In Shower Seat Home Equipment Front Wheel Walker,Hand Held Shower,Grab Bars In Shower Additional Social History Comment pt has an adjustable bed and a recliner M1 PT/OT-IP Prior Functional Status Start: 09/06/23 13:48 Freq: NEEDED Status: Active Protocol: Document 09/06/23 13:48 [facility] (Rec: 09/06/23 14:03 [facility] [id number]) Medical Review Prior Functional Status Medical History Reviewed Yes Communication able to make needs known Mobility and Gait pt stated that he was modified independent with all mobilities and ambulation using a FWW; pt able to drive prior to sx Activities of Daily Living and IADL's pt stated that he usually sponge bathes but after a few weeks goes up to 2nd level of the house to take a shower Social History Household Members none Living Arrangements House Number of Floors (Floors) Two Floors Number of Stairs To Enter/Railing? pt stays on the main level of the house has 2 steps without rails to enter the house pt has his shower upstairs: 17 steps L rail ascending + R ledge Home Environment Standard Height Toilet,Walk in Shower,Built-In Shower Seat Home Equipment Front Wheel Walker,Hand Held Shower,Grab Bars In Shower Additional Social History Comment pt has an adjustable bed and a recliner M2 OT-IP Current Condition Start: 09/06/23 13:48 Freq: Status: Active Protocol: Document 09/06/23 13:48 [facility] (Rec: 09/06/23 14:03 [facility] [id number]) Occupational Therapy Current Condition Current Condition Evaluation Date 09/06/23 Treatment Diagnosis S/P L REILLY posterior approach Diagnosis Onset Date 09/05/23 Post Operative Precautions Posterior Hip Precautions No Hip Flexion > 90 degrees,No Hip Internal Rotation,No Hip Adduction M3 OT- IP Subjective and Pain Start: 09/06/23 13:48 Freq: Status: Active Protocol: Document 09/06/23 13:48 [facility] (Rec: 09/06/23 14:03 [facility] [id number]) OT- Subjective Occupational Therapy Visit Type Type Initial Evaluation Visit Start Time 13:05 Visit Stop Time 13:45 Occupational Therapy Visit Comments Patient Comments Pt agreed to try to stand. Patient/Caregiver Goals TO get better. OT Pain Assessment Pain When Pain Assessed At Rest Pain Present Pain Present Pain Reported Location Left Lower Leg Intensity 7 Scale Used Numeric (0 - 10) M4 OT- IP ADL's Start: 09/06/23 13:48 Freq: Status: Active Protocol: Document 09/06/23 13:48 [facility] (Rec: 09/06/23 14:03 [facility] [id number]) OT [id number] General Evaluation Self-Feeding Ability Independent OT ADL-Grooming Comments OT Grooming Comments Not performed. OT ADL-Oral Care Comments Oral Care Comments Not performed. OT ADL-Dressing General Eval Lower Body Dressing Ability Maximum Assistance Comments OT Dressing Comments Able well aware of LB dressing equipment as pt uses the equipment at home. Reiterated to dress his LLE first and take out last. OT ADL-Toileting Comments OT Toileting Comments Educated pt to be mindful on not bending over too far or stand to wipe woudl be best. OT ADL-Bathing Comments OT Bathing Comments Pt will benefit from a shower chair at home. M5 OT- IP IADL's Start: 09/06/23 13:48 Freq: Status: Active Protocol: Document 09/06/23 13:48 [facility] (Rec: 09/06/23 14:03 [facility] [id number]) OT-Instrumental Activities of Daily Living Deficits IADL Deficits Identified Deficits Home Safety Awareness Awareness of Need for Assistance at Home Good Awareness Ability to Problem Solve Emergency Able to Problem Solve Situations Medication Management Medication Management Comments Pt able to do prior. Meal Preparation Meal Preparation Comments Pt will need assist. Dairy Nutrition Consultant Dairy Nutrition Consultant Comments Pt will need assist. M6 OT- IP Functional Cognition Start: 09/06/23 13:48 Freq: Status: Active Protocol: Document 09/06/23 13:48 [facility] (Rec: 09/06/23 14:03 [facility] [id number]) Cognitive Factors Limiting Selfcare Function Cognitive Ability Level of Alertness Alert Patient Orientation Name,Place,Situation Attention Span Ability Capable of Focused Attention, Capable of Sustained Attention Ability to Follow Commands Able to Follow One Step Commands with Increased Time, Able to Follow One Step Commands with Repetition Memory Description Short Term Impaired Cognitive Comments Cognitive Assessment Comments Pt needing cues to recall his precautions and how to incorporate during ADL and mobility needs. OT- Vision and Hearing OT- Hearing Assessment OT- Hearing Assessment WFL OT- Vision Assessment Visual Acuity Glasses All The Time Visual Attentiveness WFL Occular Pursuits WFL M7 OT- IP Mobility and Balance Start: 09/06/23 13:48 Freq: Status: Active Protocol: Document 09/06/23 13:48 [facility] (Rec: 09/06/23 14:03 [facility] [id number]) OT-Transfer Assessment Sit to and From Stand Sit to and from Stand Maximum Assistance,2 Person Assistance Comments Mobility Comments Pt needign MAX AX 2 to stand to FWW and LLE tends to buckle at this time and needing assist for balance. OT- Balance Assessment Sitting Balance and Reactions Static Sitting Balance Ability Good Dynamic Sitting Balance Ability Fair Standing Balance and Reactions Static Standing Balance Ability Poor Comments Other Balance Tests/Deviations/Treatment At time time best for pt to : use megan lift for transfers due to his LLE buckling. M8 OT- IP Objective Assessments Start: 09/06/23 13:48 Freq: Status: Active Protocol: Document 09/06/23 13:48 [facility] (Rec: 09/06/23 14:03 [facility] [id number]) OT Gross Range of Motion Upper Extremity Range of Motion Assessment Within Functional Limits OT Strength Upper Extremity Strength Assessment Within Functional Limits OT-Muscle Tone Assessment Muscle Tone WNL Yes M9 OT- IP Assessment and Plan Start: 09/06/23 13:48 Freq: Status: Active Protocol: Document 09/06/23 13:48 [facility] (Rec: 09/06/23 14:03 [facility] [id number]) OT Summary Assessment and Plan Potential Rehabilitation Potential Good Analytic Complexity at Evaluation Moderate Summary OT Impairments Pain,Range of Motion,Strength, Balance,Functional Cognition, Functional Mobility,Grooming, Dressing,Toileting,Bathing, Toilet Transfers,Shower Transfers,Activity Tolerance Progress Towards Goals Slow Progress due to Pain,Slow Progress due to Medical Issues,Slow Progress due to Activity Tolerance Assessment Summary Pt MOD complexity and main barriers are pain, left foot drop, and decreased activity tolerance and now needing use of megan lift for safe transfer due to his left foot drop. Pt is very motivated and pleasant and will benefit from skilled rehab. Goals Grooming Goal Independent Dressing Goal Independent,Long Handled Shoe Horn,Financial Quantitative Analyst,Sock Aid Toileting Goal Independent Bathing Goal Independent Toilet Transfer Goal Independent Shower Transfer Goal Independent Days to Meet Goals 30 Frequency of Treatment Frequency Of Treatment Once a Day Treatment Plan OT Treatment Plan ADL Training,Functional Cognition Training,Functional Mobility,Patient/Family Education,Discharge Planning Other Treatment Recommendations and Next Transfer to [facility] with MAX AX 2 Treatment Focus with FWW. Discharge Recommendations OT Discharge Recommendations SNF Rehab Home Equipment Needs shower chair, [facility] Transportation Needs at Discharge Wheelchair/Cabulance
[2023-09-06] MEDS: hydrOXYzine HCL 25 MG TABLET PO (16:57)
--- NOTE | 2023-09-06 19:38 | PC.NURSE ---
Notified PA of patient c/o muscle spasms this a.m. unrelieved with pain with oxycodone 5 mg prn. Per orders patient given hydroxizine 25 mg po prn with good effect. Notified PA of urnie culture for gram negative bacilli, patient afebrile, no new labs ordered. Per orders will wait for final sensitivities. Also notified PA of holding scheduled BP meds for soft BP's and 16 units of Humgalog with Carb Controlled Diet as patient already on SSI and receiving lantus and metformin.
[2023-09-06] MEDS: FINASTERIDE 5 MG TABLET PO (20:59)
[2023-09-06] MEDS: TAMSULOSIN 0.4 MG CAPSULE PO (20:59)
[2023-09-07] MEDS: OXYCODONE IR 5 MG TABLET PO ×3 (00:16→17:28)
[2023-09-07 00:44] VITALS: BP 109/62; PULSE 95; RESP 17; TEMP 36.4; O2SAT 93
[2023-09-07 06:45] VITALS: BP 103/58; PULSE 92; RESP 18; TEMP 36.1; O2SAT 92
[2023-09-07 07:49] VITALS: BP 118/71; PULSE 94; RESP 20; TEMP 36.4; O2SAT 94
[2023-09-07] MEDS: allopurinoL 100 MG TABLET 300 MG PO (08:37)
[2023-09-07] MEDS: LORATADINE 10 MG TABLET PO (08:37)
[2023-09-07] MEDS: ATORVASTATIN 20 MG TABLET 10 MG PO (08:37)
[2023-09-07 08:38] VITALS: BP 118/71; PULSE 94
[2023-09-07] MEDS: ASPIRIN EC 81 MG TABLET PO ×2 (08:38→20:13)
[2023-09-07] MEDS: hydroCHLOROthiazide 25 MG TABLET 12.5 MG PO (08:38)
[2023-09-07] MEDS: lisinopriL 10 MG TABLET 20 MG PO (08:38)
[2023-09-07] MEDS: METFORMIN HCL 500 MG TABLET PO (08:38)
[2023-09-07] MEDS: DOCUSATE 100 MG CAPSULE PO ×2 (08:38→20:13)
[2023-09-07] MEDS: INSULIN GLARGINE 100 UNIT/ML 3ML PEN 29 UNIT SUBCUT (08:50)
[2023-09-07] MEDS: INSULIN LISPRO 100 UNIT/ML 3ML VIAL 16 UNIT SUBCUT ×2 (08:52→20:13)
--- NOTE | 2023-09-07 10:12 | PT.IPTN ---
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) Surgery Performed Operation Date: 09/05/23 13:45 Actual Procedures p Total Hip Arthroplasty(Left) - Gracie Contreras MD Physical Therapy Treatment Note M2 PT-IP Current Condition Start: 09/06/23 12:32 Freq: NEEDED Status: Active Protocol: Document 09/06/23 09:05 AB (Rec: 09/06/23 12:52 AB [id number]) Physical Therapy Current Condition Current Condition Evaluation Date 09/06/23 Treatment Diagnosis s/p L REILLY posterior; difficulty in walking Onset Date 09/05/23 M3 PT-IP Subjective Start: 09/06/23 12:32 Freq: NEEDED Status: Active Protocol: Document 09/07/23 10:29 TS (Rec: 09/07/23 10:37 TS [id number]) Subjective Physical Therapy Visit Type Type Treatment Note Visit Start Time 10:12 Visit Stop Time 10:29 Number of SOLAR TECHNICIAN Visits 2 Physical Therapy Visit Comments Patient Comments Pt found resting in bed, continues to have 7/10 pain and foot drop. pt is agreeable to PT. Therapy Pain Assessment Pain When Pain Assessed At Rest Pain Present Pain Present Allowed to Sleep Location Left Lower Leg Intensity 7 Scale Used Numeric (0 - 10) Description With Movement Pain Behaviors Guarding,Holding Area, Restlessness,Wincing Pain Management Techniques Apply Cold,Distraction, Modification of Treatment,Re- positioning,Timing of Activity with Medications M4 PT-IP Mobility and Gait Start: 09/06/23 12:32 Freq: NEEDED Status: Active Protocol: Document 09/07/23 10:29 TS (Rec: 09/07/23 10:37 TS [id number]) PT-Bed Mobility Assessment Supine to Sit Supine to Sit Minimal Assistance,1 Person Assistance,Head of Bed Elevated Scooting Scooting to Edge of Bed Contact Guard Assistance PT-Transfer Assessment Sit to and From Stand Sit to and from Stand Maximum Assistance,1 Person Assistance Equipment Transfer Assistive Device Gait Belt,Front Wheeled Walker Orthotic/Prosthetic Devices or Brace: No Transfers Transfer Destination Chair Transfer Technique Stand Step Pivot Comments Mobility Comments Supine to sit Javier for uprighting trunk and LLE assist, pt required HOB elevated. He scooted to EOB with some difficulty CGA and useof grab bars and FWW. STS from bed MaxA x1 with FWW, pt is impulsive to stand before therapist is ready. Stand step pivot to chair MaxA pt's L knee continues to buckle with increased wbering, pt is unsteady and has poor FWW management. Pt was left in chair, all needs met. Gait Assessment Comments Gait Comments Stand step pivot PT-Balance Assessment Sitting Balance and Reactions Static Sitting Balance Ability Good Dynamic Sitting Balance Ability Fair Standing Balance and Reactions Static Standing Balance Ability Poor Dynamic Standing Balance Ability Poor Device Used FWW M5 PT-IP Objective Assessments Start: 09/06/23 12:32 Freq: NEEDED Status: Active Protocol: Document 09/06/23 09:05 AB (Rec: 09/06/23 12:52 AB [id number]) Orientation Orientation/Cognition Level of Alertness Alert Orientation Name,Place,Situation Language Function Ability No Deficits Noted Safety Awareness Decreased Safety Awareness Memory Description Short Term Impaired Gross Range of Motion Lower Extremity ROM Assessment Within Functional Limits Strength Lower Extremity Strength Assessment Left Impaired Hip 3+/5 Knee 3+/5 Ankle DF: 1/5 Sensation Assessment Sensation Gross Sensation WNL Muscle Tone Comments Muscle Tone Comments L foot drop M6 PT-IP Treatment Start: 09/06/23 12:32 Freq: NEEDED Status: Active Protocol: Document 09/07/23 10:29 TS (Rec: 09/07/23 10:37 TS [id number]) Physical Therapy Treatment Education Education Provided Precautions,Weight Bearing Status,Post-Op Packet,Safety M7 PT-IP Assessment and Plan Start: 09/06/23 12:32 Freq: NEEDED Status: Active Protocol: Document 09/07/23 10:29 TS (Rec: 09/07/23 10:37 [id number]) PT Summary Assessment and Plan Potential Rehabilitation Potential Fair Summary Impairments Pain,ROM,Strength,Balance, Coordination,Sensation,Tone, Cognition,Bed Mobility, Transfers,Gait,Activity Tolerance Progress Towards Goals Slow Progress due to Pain,Slow Progress due to Activity Tolerance Assessment Summary Garrett continues to make slow progress with his mobility. He is Javier for supine to sit and CGA for scooting to EOB. He performed stand step pivot to chair MaxA x1 with FWW. He is unsteady with transfer and LLE continues to buckle with increased wbering. He has poor safety awareness and poor management of FWW, pt can be impulsive. PT continues to recommend SNF. Goals Bed Mobility Goal Minimal Assistance Transfer Goal Minimal Assistance,Front Wheeled Walker Gait Goal Minimal Assistance,Front Wheel Walker Gait Distance 25 Other Goals improve bed mobility, trasnfers, ambulation using LRAD ~ 150 ft mod I up/down 2 steps using LRAD SBA Days to Meet Goals 10 Frequency of Treatment Frequency Of Treatment Twice a Day Treatment Plan Physical Therapy Treatment Plan Bed Mobility Training,Transfer Training,Gait Training, Therapeutic Exercise,Balance Retraining,Post Op Education, Discharge Planning,Hot or Cold Pack,Neuromuscular Re-ed, Coordination Retraining,Manual Therapy Precautions Posterior Hip Precautions No Hip Flexion > 90 degrees,No Hip Internal Rotation,No Hip Adduction Weight Bearing Status Weight Bearing Status Weight Bear as Tolerated Allowed Weight Bearing Amount (enter % LLE WBAT or #) (%) Recommendations To Nursing Amount of Assist Needed 2 Person Assist Discharge Recommendations PT Discharge Recommendations SNF Rehab Transportation Needs at Discharge Wheelchair/Cabulance
--- NOTE | 2023-09-07 11:14 | PM.PNPO.1 ---
Subjective Subjective Date Patient Seen: 09/07/23 Time Patient Seen: 09:45 Interval history: Garrett states he is doing well today. His pain is controlled with oral medications. His major complaint of pain is in the middle of his left femur. He says he has waves of pain that goes from a 4/10 to a 7/10 with a sensation of somebody is stabbing him in the bone. He states since the surgery he has had decreased range of motion in his left foot. He denies any numbness or tingling down his left leg. Garrett remarks that he has had decrease ability to bear weight on his left leg due to pain and weakness before the surgery and had to transition from a cane to a walker the past few months. He has a permanent Ni due to ongoing prostate issues. He plans on seeing a specialist for his prostate after he is recovered from hip surgery. Garrett states there was difficulty obtaining the epidural nerve block in the OR on the date of surgery. At one moment he felt like a zinging sensation throughout his body and felt like he jumped off the table that he has never felt before from previous spinal injections. The last one was nearly 10 years ago for his left knee replacement. Exam Vital Signs (past 8 hours): - 09/07/23 06:45 09/07/23 07:49 09/07/23 08:38 Temperature 97 F L 97.5 F L Pulse Rate 92 H 94 H 94 H Respiratory Rate 18 20 Blood Pressure 103/58 L 118/71 118/71 Pulse Oximetry 92 94 Oxygen Flow Rate 0 0 Oxygen Delivery Method Room Air Oxygen Flow Rate 0 Narrative Exam Narrative: Dressing appears to be well-maintained no signs of drainage. Mild tenderness as expected around the surgery site. Point tenderness at posterior femur that does not increase to palpation. No increase in pain with compression along the posterior calf. No warmth or redness noted throughout the posterior thigh or calf bilaterally. Sensation is grossly intact to light touch throughout the left and right lower extremity through dermatomes L1 through S2 Left lower extremity: Patient is unable to extend at the EHL or dorsiflex at the ankle. Patient is able to flex at the EHL and plantar flex with diminished strength. Patient is able to invert and elliott at the ankle Patient is able to flex and extend at the knee with pain originating from the thigh. 2+ pitting edema present at distal third of the lower leg. Foot has dry skin with mild erythema. No increase pain with internal or external rotation of the hip. No increase pain with loading of the hip joint. Right lower extremity: Patient is able to flex and extend at the EHL. Able to dorsiflex and plantar flex against resistance. Patient is able to flex and extend at the knee with pain originating from the hip. 2+ pitting edema present at distal third of the lower leg. Foot has dry skin with mild erythema. Const General: cooperative Resp Effort & Inspection: normal respiratory effort and able to speak in complete sentences Objective Labs 09/06/23 04:28 [facility] Medical History Ni catheter in place (2023) Edema Osteoarthritis Uses self-applied continuous glucose monitoring device Diabetes (~2022) Kidney stones Enlarged prostate HLD (hyperlipidemia) Seasonal allergies VILLA on CPAP Surgical History Hx of laminectomy History of total left knee replacement History of total right knee replacement H/O vasectomy Hx of hernia repair Social History household members: none other: He lives alone on [address]. Smoking Status: Former smoker alcohol intake: never Assessment & Plan Post-op Postoperative Procedures: Procedures Operation Date: 09/05/23 13:45 Actual Procedure Side Surgeon p Total Hip Arthroplasty Left Gracie Mela Contreras MD Postoperative day: 2 Postoperative plan: routine post-op care and ambulate Postoperative plan narrative: Patient has a permanent indwelling catheter which has developed a UTI. Klebsiella oxytoca came up in the culture. We will start the patient on Bactrim DS bid for 10 days. Due to the patient's insulin-dependent diabetes consult Medicine for management of his glucose. Hospitalist has been notified. Contacted Dr. Contreras about findings. She performed an independent exam and concurred with findings. She recommended the following: * Repeat X-ray of the left hip to include the mid-femur * Consult PT to provide an AFO for the left leg for foot drop to be applied today. If one cannot be obtained by discharge to SNF, the SNF will need to obtain a left leg AFO. The AFO will be primarily be used for ambulation, he may take it off when in bed at rest. * Single dose of Decadron 4mg. Continue with multimodal pain control and working with physical therapy. Current plan is to discharge to an SNF once authorization and transfer can be arranged. Time Spent With Patient Time with patient: 15-24 minutes Quality VTE Deep Vein Thrombosis/Pulmonary Embolism Present on Admission: No
--- NOTE | 2023-09-07 11:25 | PC.NURSE ---
Addendum entered by Ángel Merritt R.N. 09/07/23 18:25: L AFO was ordered and will need to be obtained by outside clock smith when Pt transfers to Rehab. Ortho PA Ross is aware as it was explained to him by Rodolfo in PT. Original Note: Pt alert and oriented, concerned about spasms occuring in left leg and upper thigh. Ice packs and passive ROM of some effect. Pt medicated end of noc shift. Pt up with PT this morning, reported some left knee buckling otherwise now in chair and resting comfortably, voices spasms have decreased and he is doing better.
--- NOTE | 2023-09-07 12:31 | DI.RAD.S_ITS ---
PROCEDURE: XR HIP W PEL IF DONE LT 2V INDICATIONS: REILLY Left TECHNIQUE: 3 views of the hip were acquired. COMPARISON: [facility], CR, XR HIP W PEL IF DONE LT 2V, 09/05/2023, 18:16. FINDINGS: Bones: Total femoral acetabular hip prosthesis without evidence of hardware complication surgical pavel overlie the hip. Catheter within the bladder. Hardware appears congruent. No suspicious bony lesions. The visualized pelvic ring appears intact. Soft tissues: No suspicious soft tissue calcifications or masses. IMPRESSION: Total hip arthroplasty without obvious hardware complication. Dictated by: Rafael Covarrubias M.D. on 09/07/2023 at 13:00 Approved by: Rafael Covarrubias M.D. on 09/07/2023 at 13:02
--- NOTE | 2023-09-07 12:34 | CM.DPC ---
DCP Cont: Confirmed with Ivory at [facility] that she can accept patient tomorrow, Saturday, will be Medicare third midnight. PASSR has already been completed. P: DCP to continue to follow. Plan is for patient to go to [facility] tomorrow, will need to ensure that ortho completes orders, and time will need to be set up. Marisa Lucero RN/Board Saw Runner
[2023-09-07] MEDS: INSULIN LISPRO 100 UNIT/ML 3ML VIAL SUBCUT ×2 (12:51→17:30)
[2023-09-07] MEDS: TRIMETH/SULFA 160/800 (DS) TABLET 1 TAB PO ×2 (12:53→20:13)
--- NOTE | 2023-09-07 14:15 | P.CONS_ITS ---
History of Present Illness Consult details Chief complaint: INPT Reason for consult: Diabetes management. Requesting provider: Cesar Duque Narrative: Consultation requested for inpatient management of diabetes. The patient is a 83-year-old male who is status post a left total hip replacement. The patient is doing well in the postoperative. Other than some pain control issues. He does have a chronic history of arthritis, gout, hypertension, rheumatoid arthritis, as well as insulin-dependent diabetes. He is currently on a glargine lispro and metformin protocol at home and notes blood sugars usually in the 150 range. His blood sugars have been elbow over 100 since his surgery. He did eat breakfast today. He denies any issues recently with lower high blood sugars. He has no difficulty with chest pain, or dyspnea. Meds Home Medications and Allergies Home Medications Medication Instructions Recorded Confirmed Type hydrochlorothiazide 12.5 mg capsule 12.5 mg PO QDAY ##0 11/09/16 08/23/23 History acetaminophen 500 mg capsule 500 mg PO Q4H PRN Pain 08/23/23 09/05/23 History allopurinol 300 mg tablet 300 mg PO DAILY 08/23/23 09/05/23 History finasteride 5 mg tablet 5 mg PO BEDTIME 08/23/23 09/05/23 History insulin aspart U-100 100 unit/mL 16 unit SUBCUT BID 08/23/23 09/05/23 History (3 mL) subcutaneous pen (Novolog FlexPen U-100 Insulin aspart) insulin glargine 100 unit/mL (3 29 unit SUBCUT QAM 08/23/23 09/05/23 History mL) subcutaneous pen (Lantus Solostar U-100 Insulin) lisinopril 10 mg tablet 20 mg PO QDAY 08/23/23 09/05/23 History loratadine 10 mg tablet 10 mg PO DAILY 08/23/23 09/05/23 History metformin 500 mg tablet 500 mg PO QAM 08/23/23 09/05/23 History simvastatin 20 mg tablet 20 mg PO DAILY 08/23/23 09/05/23 History tamsulosin 0.4 mg capsule 0.4 mg PO BEDTIME 08/23/23 09/05/23 History Allergies Allergy/AdvReac Type Severity Reaction Status Date / Time No Known Drug Allergies Allergy Verified 09/05/23 12:27 Review of Systems Review of Systems Narrative: All else reviewed and otherwise unremarkable except as noted in the narrative. Exam Vital Signs (past 8 hours): - 09/07/23 06:45 09/07/23 07:49 09/07/23 08:38 Temperature 97 F L 97.5 F L Pulse Rate 92 H 94 H 94 H Respiratory Rate 18 20 Blood Pressure 103/58 L 118/71 118/71 Pulse Oximetry 92 94 Oxygen Flow Rate 0 0 Oxygen Delivery Method Room Air Oxygen Flow Rate 0 Narrative Exam Narrative: NAD, alert and oriented, fluent speech, calm. Normocephalic skull, EOMI, anicteric sclera, symmetric pupils. Oropharynx unremarkable, no droop. Neck supple, midline trachea, no adenopathy. Lungs clear, normal rate and effort. Heart regular, no murmur gallop or rub. Abdomen is soft, non distended and non tender. Extremities are free of edema. Skin is free of rash or lesions. Joints are not swollen or deformed. Judgment appears to be normal. Objective Labs 09/06/23 04:28 [facility] Medical History Ni catheter in place (2023) Edema Osteoarthritis Uses self-applied continuous glucose monitoring device Diabetes (~2022) Kidney stones Enlarged prostate HLD (hyperlipidemia) Seasonal allergies VILLA on CPAP Surgical History Hx of laminectomy History of total left knee replacement History of total right knee replacement H/O vasectomy Hx of hernia repair Social History household members: none other: He lives alone on [address] [facility]. Tobacco & Substance Use Smoking Status: Former smoker alcohol intake: never Assessment & Plan Assessment & Plan narrative: 1. DM 2, insulin-dependent. Present on admission and stable. 2. Hypertension, present on admission and stable. Plan: We will continue the patient's baseline regimen with glargine 29 units subQ q.a.m. and lispro 60 units a.c. with correctional insulin. We will hold metformin until the day of discharge to avoid any hypoglycemic episodes. We will monitor blood sugars and follow with you. We will also monitor blood pressure control. The patient is on his chronic lisinopril at 20 mg daily and hydrochlorothiazide 12.5 mg daily. Time Spent With Patient Time with patient: 30 to 49 minutes with 50% spent counseling/coordinating care
--- NOTE | 2023-09-07 14:33 | PT-IP ANOTE ---
Per Gracie Contreras pt will need L foot AFO due to acute foot drop. Contacted SARIAH Hawkins to clarify for an over the counter AFO and pt is to wear while out of bed mobilizing. Contacted [facility] and they do not have a L foot AFO in stock and will not be able to get him an AFO until Saturday. Contacted [facility] and [facility] neither of which are open on the weekends. Pt is to d/c to SNF tomorrow and AFO may have to be done in the SNF. Per SARIAH Hawkins pt is ok to continue to work with PT while in hospital without an AFO.
--- NOTE | 2023-09-07 14:45 | PT.IPTN ---
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) Surgery Performed Operation Date: 09/05/23 13:45 Actual Procedures p Total Hip Arthroplasty(Left) - Gracie Contreras MD Physical Therapy Treatment Note M2 PT-IP Current Condition Start: 09/06/23 12:32 Freq: NEEDED Status: Active Protocol: Document 09/06/23 09:05 AB (Rec: 09/06/23 12:52 AB [id number]) Physical Therapy Current Condition Current Condition Evaluation Date 09/06/23 Treatment Diagnosis s/p L REILLY posterior; difficulty in walking Onset Date 09/05/23 M3 PT-IP Subjective Start: 09/06/23 12:32 Freq: NEEDED Status: Active Protocol: Document 09/07/23 15:11 TS (Rec: 09/07/23 15:25 TS [id number]) Subjective Physical Therapy Visit Type Type Treatment Note Visit Start Time 14:45 Visit Stop Time 15:10 Notes Per ortho pt to have over the counter L foot AFO for acute foot drop when up and mobilizing. Contacted [facility] and they will not be able to get a L AFO until Saturday. [facility] and [facility] are not available on weekends. Spoke with SARIAH Hawkins and he was notified. Pt is ok to continue to work with PT while in hospital. Pt is to d/c to SNF tomorrow. Number of MACHINIST INSTRUCTOR Visits 3 Physical Therapy Visit Comments Patient Comments Pt is agreeable to PT. Therapy Pain Assessment Pain When Pain Assessed At Rest Pain Present Pain Present Pain Reported M4 PT-IP Mobility and Gait Start: 09/06/23 12:32 Freq: NEEDED Status: Active Protocol: Document 09/07/23 15:11 TS (Rec: 09/07/23 15:25 TS [id number]) PT-Bed Mobility Assessment Supine to Sit Supine to Sit Minimal Assistance,1 Person Assistance,Head of Bed Elevated Sit to Supine Sit to Supine Minimal Assistance,1 Person Assistance Scooting Scooting to Edge of Bed Moderate Assistance Scooting Up and Down in Bed Dependent PT-Transfer Assessment Sit to and From Stand Sit to and from Stand Maximum Assistance,1 Person Assistance Equipment Transfer Assistive Device Gait Belt,Front Wheeled Walker Orthotic/Prosthetic Devices or Brace: No Comments Mobility Comments Supine to sit Javier with KEYLINER for uprighting trunk. He required ModA for scooting to EOB with use of transfer pad. He performed STS x2 with MaxA and use of FWW. Pt sidestepped x5 to L and R, pt continues to have buckling and difficulty wbering on LLE. Sit to supine Javier for LEs into bed, pt required cues for sequencing. Pt was left in bed , all needs met. Gait Assessment Gait Gait Assistance Required: Maximum Assistance,1 Person Assist Distance (Feet) 2 Able to Maintain Weight Bearing Status Yes During Gait Assistive Devices Assistive Device Gait Belt,Front Wheeled Walker Orthotic/Prosthetic Devices or Brace: No Gait Deviations General Gait Pattern Antalgic,Decreased Stride Length,Decreased Feet Clearance Factors Limiting Gait Function Factors Limiting Gait Function Decreased Activity Tolerance, Decreased Strength,Limited Range of Motion,Pain,Poor Balance,Poor Safety Awareness Comments Gait Comments Side stepped PT-Balance Assessment Sitting Balance and Reactions Static Sitting Balance Ability Good Dynamic Sitting Balance Ability Fair Standing Balance and Reactions Static Standing Balance Ability Poor Dynamic Standing Balance Ability Poor Device Used FWW M5 PT-IP Objective Assessments Start: 09/06/23 12:32 Freq: NEEDED Status: Active Protocol: Document 09/06/23 09:05 AB (Rec: 09/06/23 12:52 AB [id number]) Orientation Orientation/Cognition Level of Alertness Alert Orientation Name,Place,Situation Language Function Ability No Deficits Noted Safety Awareness Decreased Safety Awareness Memory Description Short Term Impaired Gross Range of Motion Lower Extremity ROM Assessment Within Functional Limits Strength Lower Extremity Strength Assessment Left Impaired Hip 3+/5 Knee 3+/5 Ankle DF: 1/5 Sensation Assessment Sensation Gross Sensation WNL Muscle Tone Comments Muscle Tone Comments L foot drop M6 PT-IP Treatment Start: 09/06/23 12:32 Freq: NEEDED Status: Active Protocol: Document 09/07/23 15:11 TS (Rec: 09/07/23 15:25 TS [id number]) Physical Therapy Treatment Education Education Provided Precautions,Weight Bearing Status,Post-Op Packet,Safety M7 PT-IP Assessment and Plan Start: 09/06/23 12:32 Freq: NEEDED Status: Active Protocol: Document 09/07/23 15:11 TS (Rec: 09/07/23 15:25 TS [id number]) PT Summary Assessment and Plan Potential Rehabilitation Potential Fair Summary Impairments Pain,ROM,Strength,Balance, Coordination,Sensation,Tone, Cognition,Bed Mobility, Transfers,Gait,Activity Tolerance Progress Towards Goals Slow Progress due to Pain,Slow Progress due to Activity Tolerance Assessment Summary Garrett continues to make slow progress with his mobility. He is Javier/ModA for bed mobility . He continues to require MaxA to stand with FWW. He performed sidesteps to L and R x5 steps with continued buckling of L side. See information above for notes on L AFO for acute foot drop. PT continues to recommend SNF rehab at this time. Goals Bed Mobility Goal Minimal Assistance Transfer Goal Minimal Assistance,Front Wheeled Walker Gait Goal Minimal Assistance,Front Wheel Walker Gait Distance 25 Other Goals improve bed mobility, trasnfers, ambulation using LRAD ~ 150 ft mod I up/down 2 steps using LRAD SBA Days to Meet Goals 10 Frequency of Treatment Frequency Of Treatment Twice a Day Treatment Plan Physical Therapy Treatment Plan Bed Mobility Training,Transfer Training,Gait Training, Therapeutic Exercise,Balance Retraining,Post Op Education, Discharge Planning,Hot or Cold Pack,Neuromuscular Re-ed, Coordination Retraining,Manual Therapy Precautions Posterior Hip Precautions No Hip Flexion > 90 degrees,No Hip Internal Rotation,No Hip Adduction Weight Bearing Status Weight Bearing Status Weight Bear as Tolerated Allowed Weight Bearing Amount (enter % LLE WBAT or #) (%) Recommendations To Nursing Amount of Assist Needed 2 Person Assist Discharge Recommendations PT Discharge Recommendations SNF Rehab Transportation Needs at Discharge Wheelchair/Cabulance
[2023-09-07] MEDS: dexAMETHasone 4 MG TABLET PO (14:59)
[2023-09-07 20:02] VITALS: BP 125/65; PULSE 108; RESP 17; TEMP 36.8; O2SAT 100
[2023-09-07] MEDS: TAMSULOSIN 0.4 MG CAPSULE PO (20:13)
[2023-09-07] MEDS: FINASTERIDE 5 MG TABLET PO (20:13)
[2023-09-07 23:42] VITALS: BP 101/53; PULSE 99; RESP 18; TEMP 36.6; O2SAT 92
[2023-09-07] MEDS: IBUPROFEN 400 MG TABLET PO (23:45)
[2023-09-08 08:00] VITALS: BP 98/63; PULSE 80; RESP 16; TEMP 36.1; O2SAT 94
[2023-09-08] MEDS: INSULIN LISPRO 100 UNIT/ML 3ML VIAL 16 UNIT SUBCUT (08:46)
[2023-09-08] MEDS: INSULIN LISPRO 100 UNIT/ML 3ML VIAL SUBCUT ×2 (08:47→11:56)
[2023-09-08] MEDS: ASPIRIN EC 81 MG TABLET PO (08:51)
[2023-09-08] MEDS: ATORVASTATIN 20 MG TABLET 10 MG PO (08:51)
[2023-09-08] MEDS: DOCUSATE 100 MG CAPSULE PO (08:51)
[2023-09-08] MEDS: hydroCHLOROthiazide 25 MG TABLET 12.5 MG PO (08:53)
[2023-09-08] MEDS: INSULIN GLARGINE 100 UNIT/ML 3ML PEN 29 UNIT SUBCUT (08:53)
[2023-09-08] MEDS: lisinopriL 10 MG TABLET 20 MG PO (08:59)
[2023-09-08] MEDS: allopurinoL 100 MG TABLET 300 MG PO (09:00)
[2023-09-08] MEDS: LORATADINE 10 MG TABLET PO (09:01)
[2023-09-08] MEDS: TRIMETH/SULFA 160/800 (DS) TABLET 1 TAB PO (09:04)
--- NOTE | 2023-09-08 09:37 | PM.PNPO.1 ---
Subjective Subjective Interval history: Patient has post left total hip arthroplasty. Doing better in regards to pain but still having some issues with range of motion of the left ankle. Exam Vital Signs (past 8 hours): Oxygen Delivery Method Room Air Oxygen Flow Rate 0 Narrative Exam Narrative: Patient's incision is clean and dry no sign of any drainage. Nontender to posterior aspect of the calf. Palpable pedal pulses. So showing some signs of weakness with dorsiflexion and plantar flexion of the toes and ankle. Objective Labs 09/06/23 04:28 [facility] Medical History Ni catheter in place (2023) Edema Osteoarthritis Uses self-applied continuous glucose monitoring device Diabetes (~2022) Kidney stones Enlarged prostate HLD (hyperlipidemia) Seasonal allergies VILLA on CPAP Surgical History Hx of laminectomy History of total left knee replacement History of total right knee replacement H/O vasectomy Hx of hernia repair Social History household members: none other: He lives alone on [address]. Smoking Status: Former smoker alcohol intake: never Assessment & Plan Post-op Postoperative Procedures: Procedures Operation Date: 09/05/23 13:45 Actual Procedure Side Surgeon p Total Hip Arthroplasty Left Gracie Contreras MD Postoperative status narrative: Patient is status post left total hip arthroplasty [facility] Postoperative plan: discharge (halfway facility discharge) Quality VTE Deep Vein Thrombosis/Pulmonary Embolism Present on Admission: No
--- NOTE | 2023-09-08 10:56 | PT.IPTN ---
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) Surgery Performed Operation Date: 09/05/23 13:45 Actual Procedures p Total Hip Arthroplasty(Left) - Gracie Contreras MD Physical Therapy Treatment Note M2 PT-IP Current Condition Start: 09/06/23 12:32 Freq: NEEDED Status: Active Protocol: Document 09/06/23 09:05 AB (Rec: 09/06/23 12:52 AB [id number]) Physical Therapy Current Condition Current Condition Evaluation Date 09/06/23 Treatment Diagnosis s/p L REILLY posterior; difficulty in walking Onset Date 09/05/23 M3 PT-IP Subjective Start: 09/06/23 12:32 Freq: NEEDED Status: Active Protocol: Document 09/08/23 10:31 KS (Rec: 09/08/23 12:15 KS [id number]) Subjective Physical Therapy Visit Type Type Treatment Note Visit Start Time 10:31 Visit Stop Time 10:56 Notes Per ortho pt to have over the counter L foot AFO for acute foot drop when up and mobilizing. Contacted [facility] and they will not be able to get a L AFO until Saturday. [facility] are not available on weekends. Spoke with SARIAH Hawkins and he was notified. Pt is ok to continue to work with PT while in hospital. Pt is to d/c to SNF today. Number of DAIRY FARM WORKER Visits 4 Physical Therapy Visit Comments Patient Comments Pt is agreeable to PT. Dtr present. Therapy Pain Assessment Pain When Pain Assessed At Rest Pain Present Pain Present Denied Pain M4 PT-IP Mobility and Gait Start: 09/06/23 12:32 Freq: NEEDED Status: Active Protocol: Document 09/08/23 10:31 KS (Rec: 09/08/23 12:15 KS [id number]) PT-Bed Mobility Assessment Supine to Sit Supine to Sit Minimal Assistance,1 Person Assistance,Head of Bed Elevated Sit to Supine Sit to Supine Minimal Assistance,1 Person Assistance Scooting Scooting to Edge of Bed Minimal Assistance PT-Transfer Assessment Sit to and From Stand Sit to and from Stand Moderate Assistance,1 Person Assistance,Use of Upper Extremities Equipment Transfer Assistive Device Gait Belt,Front Wheeled Walker Orthotic/Prosthetic Devices or Brace: No Transfers Transfer Destination Bed Transfer Technique lateral steps. Transfer Ability Level of Assist Moderate Assistance,1 Person Assistance,Use of Upper Extremities Comments Mobility Comments Pt in bed upon arrival. Able to perform quad sets, glute sets, heel slides, and minimal SLR. Still unable to perform active dorsiflexion however plantarflexion intact. Min A for sup<>sit, Mod A for sit<> stand w/ FWW. Pt able to perform lateral steps toward HOB and minimal marching in place w/ Mod A and FWW. Pt fatigues quickly. Min A for LE elevation back into bed. Gait Assessment Gait Gait Assistance Required: Moderate Assistance,1 Person Assist Distance (Feet) 4 Able to Maintain Weight Bearing Status Yes During Gait Assistive Devices Assistive Device Gait Belt,Front Wheeled Walker Orthotic/Prosthetic Devices or Brace: No Gait Deviations General Gait Pattern Antalgic,Decreased Stride Length,Decreased Feet Clearance Factors Limiting Gait Function Factors Limiting Gait Function Decreased Activity Tolerance, Decreased Strength,Limited Range of Motion,Pain,Poor Balance,Poor Safety Awareness Comments Gait Comments Side stepped PT-Balance Assessment Sitting Balance and Reactions Static Sitting Balance Ability Good Dynamic Sitting Balance Ability Fair Standing Balance and Reactions Static Standing Balance Ability Poor Dynamic Standing Balance Ability Poor Device Used FWW M5 PT-IP Objective Assessments Start: 09/06/23 12:32 Freq: NEEDED Status: Active Protocol: Document 09/06/23 09:05 AB (Rec: 09/06/23 12:52 AB [id number]) Orientation Orientation/Cognition Level of Alertness Alert Orientation Name,Place,Situation Language Function Ability No Deficits Noted Safety Awareness Decreased Safety Awareness Memory Description Short Term Impaired Gross Range of Motion Lower Extremity ROM Assessment Within Functional Limits Strength Lower Extremity Strength Assessment Left Impaired Hip 3+/5 Knee 3+/5 Ankle DF: 1/5 Sensation Assessment Sensation Gross Sensation WNL Muscle Tone Comments Muscle Tone Comments L foot drop M6 PT-IP Treatment Start: 09/06/23 12:32 Freq: NEEDED Status: Active Protocol: Document 09/08/23 10:31 KS (Rec: 09/08/23 12:15 KS [id number]) Physical Therapy Treatment Exercises Exercises Gluteal Sets,Quad Sets,Heel Slides,Straight Leg Raises Education Education Provided Precautions,Weight Bearing Status,Post-Op Packet,Safety M7 PT-IP Assessment and Plan Start: 09/06/23 12:32 Freq: NEEDED Status: Active Protocol: Document 09/08/23 10:31 KS (Rec: 09/08/23 12:15 KS [id number]) PT Summary Assessment and Plan Potential Rehabilitation Potential Fair Summary Impairments Pain,ROM,Strength,Balance, Coordination,Sensation,Tone, Cognition,Bed Mobility, Transfers,Gait,Activity Tolerance Progress Towards Goals Slow Progress due to Activity Tolerance Assessment Summary Pt still making slow progress but limited by lack of ability to perform dorsiflexion on LLE. Min A for bed mobility, Mod A for sit<>Stand and lateral steps using FWW. Low tolerance for activity. Pt will require SNF to improve functional mobility and will be getting AFO at SNF. Goals Bed Mobility Goal Minimal Assistance Transfer Goal Minimal Assistance,Front Wheeled Walker Gait Goal Minimal Assistance,Front Wheel Walker Gait Distance 25 Other Goals improve bed mobility, trasnfers, ambulation using LRAD ~ 150 ft mod I up/down 2 steps using LRAD SBA Days to Meet Goals 10 Frequency of Treatment Frequency Of Treatment Twice a Day Treatment Plan Physical Therapy Treatment Plan Bed Mobility Training,Transfer Training,Gait Training, Therapeutic Exercise,Balance Retraining,Post Op Education, Discharge Planning,Hot or Cold Pack,Neuromuscular Re-ed, Coordination Retraining,Manual Therapy Precautions Posterior Hip Precautions No Hip Flexion > 90 degrees,No Hip Internal Rotation,No Hip Adduction Weight Bearing Status Weight Bearing Status Weight Bear as Tolerated Allowed Weight Bearing Amount (enter % LLE WBAT or #) (%) Recommendations To Nursing Amount of Assist Needed 2 Person Assist Discharge Recommendations PT Discharge Recommendations SNF Rehab Transportation Needs at Discharge Wheelchair/Cabulance
--- NOTE | 2023-09-08 11:06 | PM.DS.1 ---
History of Present Illness History of Present Illness Date Patient Seen: 09/08/23 Time Patient Seen: 09:00 Chief complaint: INPT Narrative: Patient is postoperative day 3. Left total hip arthroplasty Discharge Providers Provider Date of admission: 09/05/23 11:57 Discharge Date: 09/08/23 Primary care physician: DANDRE Ashraf Consults: 08/23/23 10:36 Consult to Anesthesiology Routine Comment: Consulting Provider: Anesthesiologist Reason for consultation: Surgeon requested re: Cardiac history 09/05/23 06:00 Consult to Anesthesiology Routine Comment: Consulting Provider: Anesthesiologist Reason for consultation: Regional block for post operative pain control 09/05/23 19:06 Consult to Discharge Planning Routine Comment: Consult to Occupational Therapy Evaluate & Treat Comment: Physician Instructions: Evaluate and treat Consult to Physical Therapy Evaluate & Treat Comment: Physician Instructions: post op REILLY protocol 09/07/23 11:28 Consult to Hospitalist Service Routine Comment: Consulting Provider: [facility] Reason for consultation: DM control Has provider been notified: Yes 09/07/23 12:36 Consult to Physical Therapy Evaluate & Treat Comment: Today Physician Instructions: Provide patient with Left AFO Discharge provider: Jerrod Mckinney MD Summary Hospital Course Discharge Diagnosis: Left hip arthritis Hospital Course: Left hip total arthroplasty Exam Vital Signs (past 8 hours): - 09/08/23 08:00 Temperature 96.9 F L Pulse Rate 80 Respiratory Rate 16 Blood Pressure 98/63 Pulse Oximetry 94 Oxygen Flow Rate 0 Oxygen Delivery Method Room Air Oxygen Flow Rate 0 Narrative Exam Narrative: Patient's dressing is clean dry. Positive pedal pulses. Nontender to palpation posterior aspect of his calf. Some difficulty with dorsiflexion and plantar flexion of his toes and ankles on left side. Normal on the right. Objective Labs 09/06/23 04:28 [facility] Medical History Ni catheter in place (2023) Edema Osteoarthritis Uses self-applied continuous glucose monitoring device Diabetes (~2022) Kidney stones Enlarged prostate HLD (hyperlipidemia) Seasonal allergies VILLA on CPAP Surgical History Hx of laminectomy History of total left knee replacement History of total right knee replacement H/O vasectomy Hx of hernia repair Social History household members: none other: He lives alone on [address] [facility] [address]. Smoking Status: Former smoker alcohol intake: never Discharge Assessment & Plan Assessment and Plan Assessment: Patient doing well after a left total hip arthroplasty patient will be discharged to a long-term facility. Discharge Plan Discharge Plan Patient Disposition: SNF Discharge orders & Medications Prescriptions: New sulfamethoxazole-trimethoprim 800-160 mg Tablet 1 tab PO BID Qty: 20 0RF hydroxyzine HCl 25 mg Tablet 25 mg PO Q4H PRN (Reason: Nausea) Qty: 60 0RF oxycodone 5 mg Tablet 5 mg PO Q3H PRN (Reason: Pain, Moderate (4-6)) Qty: 60 0RF Continued hydrochlorothiazide 12.5 MG capsule 12.5 mg PO QDAY Qty: 0 metformin 500 mg Tablet 500 mg PO QAM tamsulosin 0.4 mg Capsule 0.4 mg PO BEDTIME simvastatin 20 mg Tablet 20 mg PO DAILY allopurinol 300 mg Tablet 300 mg PO DAILY acetaminophen 500 mg Capsule 500 mg PO Q4H PRN (Reason: Pain) finasteride 5 mg Tablet 5 mg PO BEDTIME loratadine 10 mg Tablet 10 mg PO DAILY insulin aspart U-100 [Novolog FlexPen U-100 Insulin] 100 unit/mL (3 mL) Insulin Pen 16 unit SUBCUT BID insulin glargine [Lantus Solostar U-100 Insulin] 100 unit/mL (3 mL) Insulin Pen 29 unit SUBCUT QAM lisinopril 10 MG tablet 20 mg PO QDAY Follow up/Referrals: Naomie Helm ARNP [Primary Care Provider] - Diet/Activity/Treatments Diet: Diet as Tolerated Activity: Weight bearing as tolerated, maintain posterior hip precautions. Cold/Heat Therapy: Ice on the hip for additional pain control. Skin/Wound/Dressing Care Report to your healthcare provider any signs of infection, such as:: chills, fever, night sweats, unusual drainage and unusual redness Dressing: Keep dressing intact, clean and dry until 2 weeks post-op appointment. No soaking the incision site in pools or tubs. Special Rehabilitation Services Reason for rehabilitation: Post-operative therapy Rehab type: Physical therapy Visit Report/Discharge Packet Instructions: DI for Hip Replacement, DI for Prescription Opioid Use Stand Alone Forms: Patient Portal/API Discharge Data Primary Care Provider: Naomie Helm VTE Deep Vein Thrombosis/Pulmonary Embolism Present on Admission: No
[2023-09-08 11:35] VITALS: BP 125/75; PULSE 93; RESP 16; TEMP 37; O2SAT 95
--- NOTE | 2023-09-08 11:45 | CM.DPC ---
DCP Discharge SNF Per Ortho MD, pt stable for d/c to SNF today and SUMMER confirmed [facility] can still accept today with transport around 1300. SW requested Ortho to complete the discharge in the computer and SW faxed PASRR, med list, discharge summary, orders to [facility] to review and awaiting script for Oxycodone to fax. SUMMER met bedside with pt and Dtr and updated on discharge to [facility] today around 1300 and pt remains agreeable and preference is SNF before going home alone with local supportive Dtr. SUMMER updated INVESTIGATION SPECIALIST, RN, correctional supervisor lieutenant. Plan: Patient to d/c to [facility] today via facility van around 1300 before safe discharge home alone with local family support. CIPRIANO Trejo
--- NOTE | 2023-09-08 12:28 | P.PN_ITS ---
Subjective Subjective Interval history: No problems overnight. Blood sugar control is reasonable. Exam Vital Signs (past 8 hours): - 09/08/23 08:00 Temperature 96.9 F L Pulse Rate 80 Respiratory Rate 16 Blood Pressure 98/63 Pulse Oximetry 94 Oxygen Flow Rate 0 Oxygen Delivery Method Room Air Oxygen Flow Rate 0 Narrative Exam Narrative: NAD, fluent speech. Breathing comfortably. Abdomen is non distended. No leg edema. Objective Labs 09/06/23 04:28 PFSH Medical History Ni catheter in place (2023) Edema Osteoarthritis Uses self-applied continuous glucose monitoring device Diabetes (~2022) Kidney stones Enlarged prostate HLD (hyperlipidemia) Seasonal allergies VILLA on CPAP Surgical History Hx of laminectomy History of total left knee replacement History of total right knee replacement H/O vasectomy Hx of hernia repair Social History household members: none other: He lives alone on [facility]. Smoking Status: Former smoker alcohol intake: never Assessment & Plan Assessment & Plan narrative: 1. DM 2 with stable blood sugar control, present on admission and active. The patient is going [facility]. No changes to his chronic medical regimen for diabetic control. Quality VTE Deep Vein Thrombosis/Pulmonary Embolism Present on Admission: No
--- NOTE | 2023-09-08 13:47 | PC.NURSE ---
pt dc'd to [facility] per w\c IV out on shift coordinator tele off
== END 2023-09-08 13:25 | DRG 470 ==
PROVIDERS: Physician Assistant; Admitting Provider Orthopaedic Surgery; Family Provider Nurse Practitioner Family; PCP Nurse Practitioner; Referring Provider Orthopaedic Surgery; Visit Provider Orthopaedic Surgery
PROC: 0SRB0JZ Replacement of Left Hip Joint with Synthetic Substitute, Open Approach (ICD-10-PCS; CPT 27130; principal; 2023-09-05 13:45)
DX: M87.88 Other osteonecrosis, other site (principal); T83.511A Infection and inflammatory reaction due to indwelling urethral catheter, initial encounter; N39.0 Urinary tract infection, site not specified; B96.1 Klebsiella pneumoniae [K. pneumoniae] as the cause of diseases classified elsewhere; E11.9 Type 2 diabetes mellitus without complications; I10 Essential (primary) hypertension; E78.5 Hyperlipidemia, unspecified; N40.0 Benign prostatic hyperplasia without lower urinary tract symptoms; M16.12 Unilateral primary osteoarthritis, left hip; Z87.891 Personal history of nicotine dependence; Z79.84 Long term (current) use of oral hypoglycemic drugs; Z79.4 Long term (current) use of insulin
CPT/HCPCS: 36415; 72170; 73502; 81001; 82962; 85014; 85018; 87077; 87086; 87186; 97110; 97116; 97163; 97166; 97530; 97535; C1776; A9270; C9290; J0171; J0330; J0690; J1100; J1815; J1885; J2405; J2704; J3010

== ENCOUNTER → 2023-10-04 23:45 | Outpatient (ROUT) | payer MEDICARE, OTHER, SELFPAY ==
[2023-09-05 19:48] VITALS: BMI 35.9
== END ==
PROVIDERS: Family Provider Nurse Practitioner Family; PCP Nurse Practitioner; Visit Provider Nurse Practitioner
DX: R31.9 Hematuria, unspecified (principal)
CPT/HCPCS: 87086

== ENCOUNTER 2023-10-07 10:44 | Emergency (ER) | payer MEDICARE, OTHER, SELFPAY ==
[2023-09-05 19:48] VITALS: BMI 35.9
[2023-10-07 11:11] VITALS: BP 109/65; PULSE 104; RESP 14; TEMP 36.7; O2SAT 100; BMI 33.3
--- NOTE | 2023-10-07 11:45 | ED_ITS ---
HPI - General Adult General Chief complaint: Urogenital-Male Stated complaint: catheter issues Time Seen by Provider: 10/07/23 11:44 Source: patient Mode of arrival: Wheelchair History of Present Illness HPI narrative: 83-year-old gentleman with hip replacement on September 04 and acute urinary retention and bleeding in his bladder since then, hypertension, hyperlipidemia, diabetes who presents today stating that there has been no urine output for almost 24 hours. Patient apparently had a Ni catheter in place was not putting out any urine which he had been an issue previously. He went to his primary care physician's office they tried flushing did get some blood out. Catheter was removed and they were unable to successfully replaced it and he was sent to the emergency department. Catheter was replaced with a 3 way Ni catheter there was some clot that was removed but he has had essentially no urine output. Continuing to complain of lower abdominal pain. He has not having fevers or chills. Not complain of constipation. No shortness a breath and no palpitations. Related Data Home Medications Medication Instructions Recorded Confirmed hydrochlorothiazide 12.5 mg capsule 12.5 mg PO QDAY ##0 11/09/16 08/23/23 acetaminophen 500 mg capsule 500 mg PO Q4H PRN Pain 08/23/23 09/05/23 allopurinol 300 mg tablet 300 mg PO DAILY 08/23/23 09/05/23 finasteride 5 mg tablet 5 mg PO BEDTIME 08/23/23 09/05/23 insulin aspart U-100 100 unit/mL 16 unit SUBCUT BID 08/23/23 09/05/23 (3 mL) subcutaneous pen (Novolog FlexPen U-100 Insulin aspart) insulin glargine 100 unit/mL (3 29 unit SUBCUT QAM 08/23/23 09/05/23 mL) subcutaneous pen (Lantus Solostar U-100 Insulin) lisinopril 10 mg tablet 20 mg PO QDAY 08/23/23 09/05/23 loratadine 10 mg tablet 10 mg PO DAILY 08/23/23 09/05/23 metformin 500 mg tablet 500 mg PO QAM 08/23/23 09/05/23 simvastatin 20 mg tablet 20 mg PO DAILY 08/23/23 09/05/23 tamsulosin 0.4 mg capsule 0.4 mg PO BEDTIME 08/23/23 09/05/23 Previous Rx's Medication Instructions Recorded hydroxyzine HCl 25 mg tablet 25 mg PO Q4H PRN Nausea #60 tabs 09/08/23 oxycodone 5 mg capsule 5 mg PO Q4H PRN pain #20 caps 09/08/23 sulfamethoxazole 800 1 tab PO BID #20 tabs 09/08/23 mg-trimethoprim 160 mg tablet Allergies Allergy/AdvReac Type Severity Reaction Status Date / Time No Known Drug Allergies Allergy Verified 09/05/23 12:27 Review of Systems Review of Systems Narrative: Pertinent positive and negative findings as per HPI Patient History Medical History Ni catheter in place (2023) Edema Osteoarthritis Uses self-applied continuous glucose monitoring device Diabetes (~2022) Kidney stones Enlarged prostate HLD (hyperlipidemia) Seasonal allergies VILLA on CPAP Surgical History Hx of laminectomy History of total left knee replacement History of total right knee replacement H/O vasectomy Hx of hernia repair Social History household members: none other: He lives alone on [facility]. Smoking Status: Former smoker alcohol intake: never Smoking Status: Former smoker Substance Use Type: does not use Exam Initial Vital Signs Initial Vital Signs: Vital Signs Temperature 98.1 F 10/07/23 11:11 Pulse Rate 104 H 10/07/23 11:11 Respiratory Rate 14 10/07/23 11:11 Blood Pressure 109/65 10/07/23 11:11 Pulse Oximetry 100 10/07/23 11:11 Oxygen Delivery Method Room Air 10/07/23 11:11 General: Healthy appearing, in no acute distress. Able to give a complete and coherent history. Well-nourished well-developed HEENT: Moist mucous membranes, normal sclera with reactive pupils, Neck: No JVD, supple Respiratory: Lungs are clear to auscultation, no wheezing no rales no rhonchi. Full and symmetrical air movement Cardiac: Regular rate and rhythm no murmurs no bruits Abdomen: Soft, minor bilateral flank pain without rebound or guarding, Skin: Warm and dry, no rashes Neurologic: Grossly neurologically intact with no obvious asymmetries or abnormalities Extremities: No trauma, well perfused Psych: Cooperative, appropriate insight and affect Bladder scan at bedside showed minimal urine in the bladder. Ni catheter is placed with no urine returning. Ultrasound at bedside confirms appropriate Ni catheter placement and decompressed bladder Course Orders Ordered: ED Orders 10/07/23 13:11 CT abdomen pelvis w con Stat 10/07/23 13:13 Complete Blood Count AUTO DIFF Stat Comprehensive Metabolic Panel Stat Discontinued Medications Acetaminophen (Acetaminophen 325 Mg Tablet) 975 mg PO NOW ONE Stop: 10/07/23 13:34 Last Admin: 10/07/23 13:53 Dose: 975 mg Documented By: JAMIE Sodium Chloride (Normal Saline 0.9%) 1,000 mls @ 1,000 mls/hr IV BOLUS ONE Stop: 10/07/23 14:08 Last Infusion: 10/07/23 14:39 Dose: Infused Documented By: Admin: 10/07/23 13:29 Dose: 1,000 mls/hr Documented By: JAMIE Lidocaine HCl (Lidocaine 2% (Glydo) 6 Ml Gel) 6 ml TOP NOW ONE Stop: 10/07/23 11:49 Last Admin: 10/07/23 11:52 Dose: 6 ml Documented By: THELMA Vital Signs Vital signs: Vital Signs - 8 hr 10/07/23 11:11 Temperature 98.1 F Pulse Rate 104 H Respiratory Rate 14 Blood Pressure 109/65 Pulse Oximetry 100 Oxygen Delivery Method Room Air Medical Decision Making Lab Data 10/07/23 13:13 10/07/23 13:13 Labs: Lab Results 10/07/23 Range/Units 13:13 WBC 10.4 (4.5-11.0) X10^3/uL RBC 3.82 L (4.5-5.9) X10^6/uL Hgb 12.8 L (13.5-17.5) g/dL Hct 38.0 L (41-53) % MCV 99.3 (80-100) fL MCH 33.6 (26-34) PG MCHC 33.9 (30-36) % RDW 14.5 (11.6-14.8) % Plt Count 257 (150-400) X10^3/uL Neut % (Auto) 70.9 (50-75) % Lymph % (Auto) 16.1 L (25-40) % [place] % (Auto) 9.5 (3-14) % Eos % (Auto) 3.1 (2-4) % Baso % (Auto) 0.4 (0-2) % Neut # (Auto) 7400 H (0480-9104) /uL Lymph # (Auto) 1700 (3299-0730) /uL [place] # (Auto) 1000 H (0-900) /uL Eos # (Auto) 300 (0-450) /uL Baso # (Auto) 0 (0-100) /uL Sodium 137 (137-145) mmol/L Potassium 4.0 (3.4-5.1) mmol/L Chloride 102 (98-107) mmol/L Carbon Dioxide 33 H (22-32) mmol/L BUN 22 H (9-20) mg/dL Creatinine 0.76 (0.66-1.25) mg/dL Estimated GFR > 60 (>60) mL/min BUN/Creatinine Ratio 28.9 H (6-22) Glucose 175 H (80-110) mg/dL Calcium 10.3 H (8.4-10.2) mg/dL Total Bilirubin 0.5 (0.2-1.3) mg/dL AST 18 (17-59) IU/L ALT 13 (<50) IU/L Alkaline Phosphatase 71 (38-126) U/L Total Protein 7.0 (6.3-8.2) g/dL Albumin 3.6 (3.5-5.0) g/dL Globulin 3.4 (1.7-4.1) g/dL Albumin/Globulin Ratio 1.1 (1.0-2.8) MDM Narrative Medical decision making narrative: CC: Concerns with Ni catheter Complicating co-morbidities: Recent Ni catheter issues, hip replacement September 04, diabetes, hypertension, hyperlipidemia Data collected from: patient Medical records reviewed: Discharge summary from September 07 both internal Medicine and Orthopedic notes reviewed Differential considered: Urinary tract infection, acute urinary distention secondary to clots, continued blood clots without urinary distention, other intra-abdominal issue to be determined, hydronephrosis with ureteral obstruction an acute urinary failure Exam documented above, pertinent findings include: Patient is in no significant distress, he does complain of bilateral flank pain and lower pelvic pain. He does not have an acute surgical abdomen. Fluid flushed from his bladder is notable for significant bleeding and clot. He is having minimal urine output otherwise Lab Test results independently reviewed as above. Pertinent findings: CBC is unremarkable, mild anemia postop is improving nicely Chemistries show normal creatinine. Normal electrolytes Urine is obtained from Ni catheter recently placed significantly abnormal with leukocytes red cells white cells bacteria specimen will be cultured. In the absence of secondary findings of infection going to hold off on antibiotics unless the culture returns positive. Ni catheter is replaced and his bladder is draining appropriately at this time Imaging studies independently reviewed: CT scan of the abdomen is done with concerns for acute urinary failure secondary to ureteral obstruction. Scan is otherwise relatively unremarkable and shows catheter balloon appropriately in the bladder Treatments: Fluids, catheter replacement and catheter irrigation Discussion: 83-year-old gentleman currently in correction facility for rehab after left hip replacement. Ni catheter issues have been replaced. He currently has a 3 way Ni catheter is having fairly bloody urine which he has been having it is draining. after the L of fluid he is making better urine. No signs of infection, acute renal failure, significant electrolyte abnormalities. Will arrange for him to return to correction facility for continued rehab after his Hip placement. He is safe for transfer back Discharge Plan Departure Patient Disposition: Assisted Living Clinical Impression: Problem with urinary catheter, Gross hematuria, Dehydration, mild Instructions: How to Care for Your Ni Catheter -- Male, DI for Hematuria Activity Restrictions/Additional Instructions: Thank you for coming in today Your Ni catheter was replaced with a 3 way Ni so that it can be irrigated in the correction facility more easily if required. Your urine is still fairly dark with blood but no clots were appreciated You did receive a L of fluid in the significantly helped her overall urine output. Lab workup as well as CT scan of the abdomen did not show additional concerns or findings reasons for hospitalization at this time. I hope your continued rehab goes well Prescriptions: No Action hydrochlorothiazide 12.5 MG capsule 12.5 mg PO QDAY Qty: 0 metformin 500 mg Tablet 500 mg PO QAM tamsulosin 0.4 mg Capsule 0.4 mg PO BEDTIME simvastatin 20 mg Tablet 20 mg PO DAILY allopurinol 300 mg Tablet 300 mg PO DAILY acetaminophen 500 mg Capsule 500 mg PO Q4H PRN (Reason: Pain) finasteride 5 mg Tablet 5 mg PO BEDTIME loratadine 10 mg Tablet 10 mg PO DAILY insulin aspart U-100 [Novolog FlexPen U-100 Insulin] 100 unit/mL (3 mL) Insulin Pen 16 unit SUBCUT BID insulin glargine [Lantus Solostar U-100 Insulin] 100 unit/mL (3 mL) Insulin Pen 29 unit SUBCUT QAM lisinopril 10 MG tablet 20 mg PO QDAY sulfamethoxazole-trimethoprim 800-160 mg Tablet 1 tab PO BID Qty: 20 0RF hydroxyzine HCl 25 mg Tablet 25 mg PO Q4H PRN (Reason: Nausea) Qty: 60 0RF oxycodone 5 mg capsule 5 mg PO Q4H PRN (Reason: pain) Qty: 20 0RF Referrals: Naomie Helm, [employer]CR[employer] MACHINE OPERATOR [Primary Care Provider] -
[2023-10-07] MEDS: LIDOCAINE 2% (GLYDO) 6 ML GEL TOP (11:52)
--- NOTE | 2023-10-07 13:11 | DI.CT.S_ITS ---
PROCEDURE: CT ABDOMEN PELVIS W CON INDICATIONS: abdominal pain, poor urine output TECHNIQUE: After the administration of intravenous contrast, axial sections acquired from the lung bases to the pubic symphysis. Coronal and sagittal reformats were performed. For radiation dose reduction, the following was used: automated exposure control, adjustment of mA and/or kV according to patient size. COMPARISON: None. FINDINGS: Image quality: Portions of the lower pelvis are suboptimally evaluated secondary to metallic streak artifact from hip arthroplasty. Lower Chest: Minimal appearance of streaky opacities within the right base likely atelectasis. ABDOMEN: Liver: No solid mass. Gallbladder: Luminal stones are present without wall thickening. Biliary ducts: No biliary dilation. Pancreas: No ductal dilation. Spleen: Size is within normal limits. Adrenal Glands: No adrenal nodules. Kidneys and Ureters: Bilateral renal atrophy. No hydronephrosis. No solid mass. No complex renal cystic lesion which requires follow up. Bilateral punctate nonobstructing renal calcifications and vascular calcifications are present within the kidneys bilaterally. There is a rim calcified exophytic cyst on the left measuring 1.7 cm. No priors are available for comparison. Stomach and Bowel: Normal colonic caliber, without significant wall thickening. Moderate colonic stool. Peritoneum: No abnormal intraperitoneal fluid. No free air. Ventral Wall: No significant ventral hernia. Abdominal Nodes: No retroperitoneal or mesenteric adenopathy by size criteria. Vessels: Aorta and inferior vena cava are normal in size. PELVIS: Pelvic Organs: Prostate gland is prominently enlarged. Bladder: Bladder wall is thickened. It is incompletely distended with a Ni catheter. Areas of calcification are present at the bladder base. Pelvic Nodes: No enlarged lymph nodes. Miscellaneous: Mild bilateral fat containing inguinal hernias are seen. Bones: No aggressive osseous abnormality. IMPRESSION: Bilateral renal atrophy with rim calcified cyst on the left. 3 to six-month ultrasound follow-up is recommended. Bladder is collapsed with a Ni catheter. There is a diffusely thickened wall with areas of calcification in the bladder base possibly related to prior passed stones. Recommend correlation possible cystitis versus incomplete distention for thickened wall appearance. Prostate gland is markedly enlarged. Dictated by: Suze Blanton M.D. on 10/07/2023 at 16:17 Approved by: Suze Blanton M.D. on 10/07/2023 at 16:22
[2023-10-07 13:27] LABS: Add Manual Diff / Slide Review NO; Basophils Absolute Auto 0 /uL (0-100); Basophils Percent Auto 0.4 % (0-2); Eosinophils Absolute Auto 300 /uL (0-450); Eosinophils Percent Auto 3.1 % (2-4); Hemoglobin 12.8 g/dL (13.5-17.5); Lymphocytes Absolute Auto 1700 /uL (1100-4500); Lymphocytes Percent Auto 16.1 % (25-40); Mean Corpuscular HGB Conc 33.9 % (30-36); Mean Corpuscular Hemoglobin 33.6 PG (26-34); Mean Corpuscular Volume 99.3 fL (80-100); Monocytes Absolute Auto 1000 /uL (0-900); Monocytes Percent Auto 9.5 % (3-14); Neutrophils Absolute Auto 7400 /uL (1500-7000); Neutrophils Percent Auto 70.9 % (50-75); Platelet Count 257 X10^3/uL (150-400); Red Blood Cell Count 3.82 X10^6/uL (4.5-5.9); Red Cell Distribution Width 14.5 % (11.6-14.8); White Blood Cell Count 10.4 X10^3/uL (4.5-11.0)
[2023-10-07] MEDS: SODIUM CHLORIDE 0.9% 1,000 ML 1000 ML IV (13:29)
[2023-10-07 13:47] LABS: Alanine Aminotransferase 13 IU/L (<50); Albumin 3.6 g/dL (3.5-5.0); Albumin Globulin Ratio 1.1 (1.0-2.8); Alkaline Phosphatase 71 U/L (38-126); Aspartate Aminotransferase 18 IU/L (17-59); BUN Creatinine Ratio 28.9 (6-22); Bilirubin Total 0.5 mg/dL (0.2-1.3); Blood Urea Nitrogen 22 mg/dL (9-20); Calcium 10.3 mg/dL (8.4-10.2); Carbon Dioxide 33 mmol/L (22-32); Chloride 102 mmol/L (98-107); Estimated Glomerular Filt Rate > 60 mL/min (>60); Globulin 3.4 g/dL (1.7-4.1); Glucose 175 mg/dL (80-110); HEMOLYSIS < 15 (0-50); Sodium 137 mmol/L (137-145)
[2023-10-07] MEDS: ACETAMINOPHEN 325 MG TABLET 975 MG PO (13:53)
--- NOTE | 2023-10-07 14:34 | PC.NURSE ---
1115 Flushed catheter with 500cc sterile water. Catheter patent and draining dark red urine with clots.
--- NOTE | 2023-10-07 17:11 | PC.NURSE ---
250cc dark red urine out of catheter. Pt denies pain at this time.
[2023-10-07 17:32] VITALS: BP 139/71; PULSE 89; O2SAT 94
[2023-10-07 17:59] LABS: Appearance Urine UA TURBID; Bilirubin Urine UA NEGATIVE (NEGATIVE); Color Urine UA RED; Glucose Urine UA NEGATIVE (Negative); Ketones Urine UA NEGATIVE (NEGATIVE); Leukocyte Esterase Urine UA TRACE (NEGATIVE); Nitrite Urine UA NEGATIVE (Negative); Occult Blood Urine UA 3+ (Negative); Protein Urine UA 3+ (Negative); Specific Gravity Urine UA 1.015 (1.000-1.035); pH Urine UA 6.5 (4.5-8.0)
[2023-10-07 18:02] LABS: Bacteria Urine Few (2-10); Culture Indicated Urine Specimen Cultured; RBC Urine >100/HPF (0-5/HPF); Squamous Epithelial Cell Urine None Seen (0-5/HPF); Urine Volume 10mL (spun); WBC Urine 5-10/HPF (0-5/HPF)
--- NOTE | 2023-10-07 18:16 | PC.NURSE ---
1700 [facility]
[2023-10-07 18:38] VITALS: BP 105/67; PULSE 88; O2SAT 96
== END 2023-10-07 19:08 ==
PROVIDERS: Emergency Provider Emergency Medicine; Family Provider Nurse Practitioner Family; PCP Nurse Practitioner
DX: T83.9XXA Unspecified complication of genitourinary prosthetic device, implant and graft, initial encounter (principal); R31.0 Gross hematuria; E86.0 Dehydration
CPT/HCPCS: 36415; 74177; 80053; 81001; 85025; 87077; 87086; 99284; Q9967

== ENCOUNTER 2023-10-08 15:03 | Emergency (ER) | payer MEDICARE, OTHER, SELFPAY ==
[2023-09-05 19:48] VITALS: BMI 35.9
[2023-10-08 15:10] VITALS: BP 142/65; PULSE 100; RESP 22; TEMP 36.6; O2SAT 94; BMI 38.7
--- NOTE | 2023-10-08 15:41 | ED.GENADULT ---
HPI - General Adult General Chief complaint: Urogenital-Male Stated complaint: hematuria/abd pain Time Seen by Provider: 10/08/23 15:40 Source: EMS Mode of arrival: EMS History of Present Illness HPI narrative: 83-year-old gentleman with recent hip replacement, acute urinary retention postop Ni catheter placed, currently in a jail facility with Ni catheter still in place persistent issues with blood clots and obstruction. Was here yesterday. Ni catheter was replaced felt that it was draining however by this afternoon it was not. Long discussion with Dr. Garcia, urology. After attempts to irrigate the 3 way catheter we finally switched to a 20 Trinidadian coude catheter and were able to get appropriate draining. Moderate amount of irrigation was done to try and reduce some of the old blood. There is no evidence of new bleeding or clots. Patient will be sent back to his jail facility. We will ask the jail facility to schedule an outpatient follow up appointment with Dr. Garcia regarding the BPH and complications with his acute urinary retention and Ni catheter. He is safe for discharge back to jail facility Related Data Home Medications Medication Instructions Recorded Confirmed hydrochlorothiazide 12.5 mg capsule 12.5 mg PO QDAY ##0 11/09/16 08/23/23 acetaminophen 500 mg capsule 500 mg PO Q4H PRN Pain 08/23/23 09/05/23 allopurinol 300 mg tablet 300 mg PO DAILY 08/23/23 09/05/23 finasteride 5 mg tablet 5 mg PO BEDTIME 08/23/23 09/05/23 insulin aspart U-100 100 unit/mL 16 unit SUBCUT BID 08/23/23 09/05/23 (3 mL) subcutaneous pen (Novolog FlexPen U-100 Insulin aspart) insulin glargine 100 unit/mL (3 29 unit SUBCUT QAM 08/23/23 09/05/23 mL) subcutaneous pen (Lantus Solostar U-100 Insulin) lisinopril 10 mg tablet 20 mg PO QDAY 08/23/23 09/05/23 loratadine 10 mg tablet 10 mg PO DAILY 08/23/23 09/05/23 metformin 500 mg tablet 500 mg PO QAM 08/23/23 09/05/23 simvastatin 20 mg tablet 20 mg PO DAILY 08/23/23 09/05/23 tamsulosin 0.4 mg capsule 0.4 mg PO BEDTIME 08/23/23 09/05/23 Previous Rx's Medication Instructions Recorded hydroxyzine HCl 25 mg tablet 25 mg PO Q4H PRN Nausea #60 tabs 09/08/23 oxycodone 5 mg capsule 5 mg PO Q4H PRN pain #20 caps 09/08/23 sulfamethoxazole 800 1 tab PO BID #20 tabs 09/08/23 mg-trimethoprim 160 mg tablet Allergies Allergy/AdvReac Type Severity Reaction Status Date / Time No Known Drug Allergies Allergy Verified 10/08/23 15:14 Patient History Medical History Ni catheter in place (2023) Edema Osteoarthritis Uses self-applied continuous glucose monitoring device Diabetes (~2022) Kidney stones Enlarged prostate HLD (hyperlipidemia) Seasonal allergies VILLA on CPAP Surgical History Hx of laminectomy History of total left knee replacement History of total right knee replacement H/O vasectomy Hx of hernia repair Social History household members: none other: He lives alone on [address] [address] [facility]. Smoking Status: Former smoker alcohol intake: never Smoking Status: Former smoker Substance Use Type: does not use Exam Initial Vital Signs Initial Vital Signs: Vital Signs Temperature 97.8 F 10/08/23 15:10 Pulse Rate 100 H 10/08/23 15:10 Respiratory Rate 22 10/08/23 15:10 Blood Pressure 142/65 H 10/08/23 15:10 Pulse Oximetry 94 10/08/23 15:10 Oxygen Delivery Method Room Air 10/08/23 15:10 General: Alert appropriate in no acute distress Respiratory: Able to speak in full sentences, no obvious respiratory distress Abdomen: is distended with bedside ultrasound showing more than 500 cc in his bladder. Bedside ultrasound does not show the balloon for the Ni catheter and I suspect that it was settled in the debris/clot/ prostate tissue down at the base of his bladder Skin: No obvious rashes, warm and dry Neurologic: Grossly intact no obvious asymmetries or abnormalities Psych: appropriate insight and affect, cooperative Course Orders Ordered: Discontinued Medications Lidocaine HCl (Lidocaine 2% (Glydo) 6 Ml Gel) 6 ml TOP NOW ONE Stop: 10/08/23 16:57 Last Admin: 10/08/23 16:56 Dose: 6 ml Documented By: THELMA Oxycodone/Acetaminophen (Oxycodone/Acetaminophen 5/325 Tablet) 1 tab PO NOW ONE Stop: 10/08/23 15:53 Last Admin: 10/08/23 15:55 Dose: 1 tab Documented By: THELMA Phenazopyridine HCl (Phenazopyridine 100 Mg Tablet) 200 mg PO NOW ONE Stop: 10/08/23 15:53 Last Admin: 10/08/23 15:55 Dose: 200 mg Documented By: THELMA Vital Signs Vital signs: Vital Signs - 8 hr 10/08/23 15:10 Temperature 97.8 F Pulse Rate 100 H Respiratory Rate 22 Blood Pressure 142/65 H Pulse Oximetry 94 Oxygen Delivery Method Room Air Medical Decision Making [facility] Narrative Medical decision making narrative: CC: Clogged Ni catheter Complicating co-morbidities: Recent hip surgery, recurrent episodes with Ni catheter Data collected from: patient Social determinants of health that may influence the patients condition: Currently at jail facility Medical records reviewed: Notes from yesterday's visit as well as discharge summary from hospital are reviewed Differential considered: Displaced Ni, clogged Ni, continued bleeding Exam documented above, pertinent findings include: Distended abdomen with 500 cc in his bladder Consultations:Dr Ann. Reviewed notes and visit yesterday. Recommends largest coudey cath Treatments: Coude catheter, 20 Trinidadian is placed. Significant improvement, bladder is irrigated and some of the old blood is removed. There are no clots I do not think he is actively bleeding I think that this is old clot breaking down Discussion: 83-year-old gentleman with Ni catheter still in place after hip replacement, currently jail facility for hip replacement rehab. Yesterday decreased output in increasing pain, nursing staff at the nursing facility full the catheter was unable to get it replaced. In the emergency department we placed a large three-way catheter. We were getting a small amount of bloody urine out when he was discharged back to the jail facility. CT scan of the abdomen was done which confirmed absence of hydronephrosis and presence of Ni balloon in the bladder itself. Patient is again sent back by jail facility with reports of the bladder is not draining. We again tried with multiple different techniques to irrigate through the 3 way catheter and the tip is completely blocked. On bedside ultrasound he has a significantly distended bladder but I do not see the Ni balloon. There is quite a bit of debris at the base which may be clots as well as enlarged prostate and I suspect of the catheter balloon is stuck down there which is why we are unable to dislodge the tip and better irrigate. Multiple discussions with Dr. Garcia. We tried positioning and re-irrigated with no success. Will try replacing with a large coude catheter and re-evaluate. Successful placement of coude catheter. Good drainage. Some of the old blood has been irrigated. Reviewed again with Dr. Garcia. Patient will go back to jail facility. We will ask jail facility schedule an outpatient appointment with Dr. Garcia for BPH and continued Ni catheter drainage. Discharge Plan Departure Patient Disposition: Xfer Inpatient Rehab Clinical Impression: Problem with urinary catheter Activity Restrictions/Additional Instructions: Mr. Mathews's catheter was again clogged. In consultation with Dr. Garcia, urology, we placed a 20 Trinidadian coude catheter and seems to be draining nicely with quite a bit of debris able to be removed. We did give him some Pyridium for bladder spasm in the urine is showing the orange color associated with that. Please schedule an outpatient appointment with Dr. Garcia with [facility]. The phone number is [phone] for outpatient follow up of his enlarged prostate and continued need for Ni catheter placement. Prescriptions: No Action hydrochlorothiazide 12.5 MG capsule 12.5 mg PO QDAY Qty: 0 metformin 500 mg Tablet 500 mg PO QAM tamsulosin 0.4 mg Capsule 0.4 mg PO BEDTIME simvastatin 20 mg Tablet 20 mg PO DAILY allopurinol 300 mg Tablet 300 mg PO DAILY acetaminophen 500 mg Capsule 500 mg PO Q4H PRN (Reason: Pain) finasteride 5 mg Tablet 5 mg PO BEDTIME loratadine 10 mg Tablet 10 mg PO DAILY insulin aspart U-100 [Novolog FlexPen U-100 Insulin] 100 unit/mL (3 mL) Insulin Pen 16 unit SUBCUT BID insulin glargine [Lantus Solostar U-100 Insulin] 100 unit/mL (3 mL) Insulin Pen 29 unit SUBCUT QAM lisinopril 10 MG tablet 20 mg PO QDAY sulfamethoxazole-trimethoprim 800-160 mg Tablet 1 tab PO BID Qty: 20 0RF hydroxyzine HCl 25 mg Tablet 25 mg PO Q4H PRN (Reason: Nausea) Qty: 60 0RF oxycodone 5 mg capsule 5 mg PO Q4H PRN (Reason: pain) Qty: 20 0RF Referrals: Naomie Helm ARNP [Primary Care Provider] -
[2023-10-08] MEDS: OXYCODONE/ACETAMINOPHEN 5/325 TABLET 1 TAB PO (15:55)
[2023-10-08] MEDS: PHENAZOPYRIDINE 100 MG TABLET 200 MG PO (15:55)
--- NOTE | 2023-10-08 16:01 | PC.NURSE ---
Pt returns to ED today with lower abd/bladder pain. Pt seen here yesterday for the same reason. Bladder scanned pt and 410 in bladder. Verbal order to flush catheter. Flushed with 160cc with no drainage. Pt in a significant amount of discomfort. Dr Suarez aware and contacting Urology. Recieved order for oxycodone & pyridium
--- NOTE | 2023-10-08 16:50 | PC.NURSE ---
Turned pt to R side and inserted catheter tip further into urethra & irrigated youngblood catheter with 120cc of sterile water. No cath drainage. Dr santos spoke with urology and Dr Ann suggested that cath be replaced with large coudet.
[2023-10-08] MEDS: LIDOCAINE 2% (GLYDO) 6 ML GEL TOP (16:56)
--- NOTE | 2023-10-08 17:32 | PC.NURSE ---
Replaced existing catheter with [address] cou[address] as requested by Dr Ann. Patent and draining.
--- NOTE | 2023-10-08 17:45 | PC.NURSE ---
Cath flushed with 240 cc sterile water. 650cc out. 410 actual urine out.
--- NOTE | 2023-10-08 18:04 | PC.NURSE ---
Flushed cath with 150cc sterile water. Dark red urine and sediment out s/p flush. Urine now draining clear pink.
[2023-10-08 18:44] VITALS: BP 120/60; PULSE 100; RESP 20; O2SAT 99
== END 2023-10-08 18:44 ==
PROVIDERS: Emergency Provider Emergency Medicine; Family Provider Nurse Practitioner Family; PCP Nurse Practitioner
DX: T83.091A Other mechanical complication of indwelling urethral catheter, initial encounter (principal)

== ENCOUNTER 2023-10-08 20:50 | Inpatient (IN) | payer MEDICARE, OTHER, SELFPAY ==
[2023-09-05 19:48] VITALS: BMI 35.9
[2023-10-08] VITALS (20 sets, daily range): BP systolic 71–143; BP diastolic 42–85; PULSE 95–125; RESP 21–43; TEMP 36.7; O2SAT 85–98
--- NOTE | 2023-10-08 20:51 | ED_ITS ---
HPI - Male Genitourinary General Chief complaint: Urogenital-Male Stated complaint: Urinary retention Time Seen by Provider: 10/08/23 20:51 History of Present Illness HPI Narrative: 83-year-old male presents by EMS from his [facility] facility for hematuria and blocked Youngblood catheter. This is patient's 3rd visit in 2 days for similar complaint. At last visit three-way Youngblood was replaced with a 20 Kinyarwanda coude catheter and drainage was achieved. At the time of discharge there was no evidence of bleeding or clots and patient reported that his pain had resolved. Shortly after returning to his [facility] facility he noticed that his catheter was not draining and he was having a large amount of blood from his catheter. 911 was called. On arrival patient reported significant abdominal discomfort and distention, there were large blood clots noted around the urethral meatus and in the patient's groin area. Related Data Home Medications Medication Instructions Recorded Confirmed hydrochlorothiazide 12.5 mg capsule 12.5 mg PO QDAY ##0 11/09/16 10/09/23 acetaminophen 500 mg capsule 500 mg PO Q4H PRN Pain 08/23/23 10/09/23 allopurinol 300 mg tablet 300 mg PO DAILY 08/23/23 10/09/23 finasteride 5 mg tablet 5 mg PO BEDTIME 08/23/23 10/09/23 insulin aspart U-100 100 unit/mL 16 unit SUBCUT BID 08/23/23 10/09/23 (3 mL) subcutaneous pen (Novolog FlexPen U-100 Insulin aspart) insulin glargine 100 unit/mL (3 29 unit SUBCUT QAM 08/23/23 10/09/23 mL) subcutaneous pen (Lantus Solostar U-100 Insulin) lisinopril 10 mg tablet 20 mg PO QDAY 08/23/23 10/09/23 loratadine 10 mg tablet 10 mg PO DAILY 08/23/23 10/09/23 metformin 500 mg tablet 500 mg PO QAM 08/23/23 10/09/23 simvastatin 20 mg tablet 20 mg PO DAILY 08/23/23 10/09/23 tamsulosin 0.4 mg capsule 0.4 mg PO BEDTIME 08/23/23 10/09/23 Previous Rx's Medication Instructions Recorded hydroxyzine HCl 25 mg tablet 25 mg PO Q4H PRN Nausea #60 tabs 09/08/23 oxycodone 5 mg capsule 5 mg PO Q4H PRN pain #20 caps 09/08/23 sulfamethoxazole 800 1 tab PO BID #20 tabs 09/08/23 mg-trimethoprim 160 mg tablet Allergies Allergy/AdvReac Type Severity Reaction Status Date / Time No Known Drug Allergies Allergy Verified 10/08/23 15:14 Review of Systems Review of Systems Narrative: See HPI Patient History Medical History Youngblood catheter in place (2023) Edema Osteoarthritis Uses self-applied continuous glucose monitoring device Diabetes (~2022) Kidney stones Enlarged prostate HLD (hyperlipidemia) Seasonal allergies VILLA on CPAP Surgical History Hx of laminectomy History of total left knee replacement History of total right knee replacement H/O vasectomy Hx of hernia repair Social History household members: none other: He lives alone on [address] [facility]. Smoking Status: Former smoker alcohol intake: never Smoking Status: Former smoker Substance Use Type: does not use Exam Initial Vital Signs Initial Vital Signs: Vital Signs Temperature 98.1 F 10/08/23 20:58 Pulse Rate 125 H 10/08/23 20:58 Respiratory Rate 24 10/08/23 20:58 Blood Pressure 143/85 H 10/08/23 20:58 Pulse Oximetry 94 10/08/23 20:58 Oxygen Delivery Method Room Air 10/08/23 20:58 Const: Awake, alert, uncomfortable, frail Cardiac: Tachycardia, regular rhythm RESP: unlabored, clear bilaterally, no wheezing GI: Suprapubic distention and fullness, significant tenderness to palpation : e learning coordinator present, large clots present around youngblood opening Skin: Warm, Dry, intact, no rashes Neuro: AO x3, CN II-XII grossly intact, moves all extremities Course Orders Ordered: ED Orders 10/08/23 20:57 CT abdomen pelvis w con Stat 10/08/23 21:11 CBC Auto Diff [Complete Blood Count AUTO DIFF] Stat CMP [Comprehensive Metabolic Panel] Stat PT [Prothrombin Time INR] Stat Type and Screen Stat 10/08/23 23:41 HH [Hemoglobin and Hematocrit] Stat Finasteride (Finasteride 5 Mg Tablet) 5 mg PO BEDTIME [place] Hydromorphone HCl (Hydromorphone 0.5 Mg Inj) 0.5 mg IV Q2H PRN PRN Reason: Pain, Moderate (4-6) Hydromorphone HCl (Hydromorphone 1 Mg Inj) 1 mg IV Q4H PRN PRN Reason: Pain, Severe (7-10) Dextrose (D10w) 100 mls @ 1,200 mls/hr IV PRN PRN PRN Reason: Hypoglycemia Insulin Human Lispro (Insulin Lispro 100 Unit/Ml 3ml Vial) 0 unit SUBCUT ACHS DALTON; Protocol Naloxone HCl (Naloxone 0.4 Mg/Ml Vial) 0.2 mg IV Q2MIN PRN PRN Reason: Opiate Reversal Oxycodone HCl (Oxycodone Ir 5 Mg Tablet) 5 mg PO Q4H PRN PRN Reason: pain Tamsulosin HCl (Tamsulosin 0.4 Mg Capsule) 0.4 mg PO BEDTIME DALTON Discontinued Medications Hydromorphone HCl (Hydromorphone 1 Mg Inj) 1 mg IV NOW ONE Stop: 10/08/23 20:58 Last Admin: 10/08/23 21:06 Dose: 1 mg Documented By: COLLEEN Tranexamic Acid 1,000 mg/ (Sodium Chloride) 100 mls @ 200 mls/hr IV NOW ONE Stop: 10/08/23 21:23 Last Infusion: 10/08/23 22:40 Dose: Infused Documented By: Infusion: 10/08/23 21:23 Dose: 200 mls/hr Documented By: Infusion: 10/08/23 21:06 Dose: 0 mls/hr Documented By: Admin: 10/08/23 21:05 Dose: 200 mls/hr Documented By: COLLEEN Sodium Chloride (Normal Saline 0.9%) 1,000 mls @ 1,000 mls/hr IV BOLUS ONE Stop: 10/08/23 23:21 Last Infusion: 10/08/23 23:28 Dose: Infused Documented By: Admin: 10/08/23 22:23 Dose: 1,000 mls/hr Documented By: COLLEEN Sodium Chloride (Normal Saline 0.9%) 1,000 mls @ 1,000 mls/hr IV BOLUS ONE Stop: 10/09/23 00:34 Last Infusion: 10/09/23 00:45 Dose: Infused Documented By: Admin: 10/08/23 23:45 Dose: 1,000 mls/hr Documented By: COLLEEN Lidocaine HCl (Lidocaine 2% (Glydo) 6 Ml Gel) 6 ml TOP NOW ONE Stop: 10/08/23 20:55 Last Admin: 10/08/23 22:41 Dose: 6 ml Documented By: BHAKTI Vital Signs Vital signs: Vital Signs - 8 hr 10/08/23 20:58 10/08/23 20:58 10/08/23 21:00 Temperature 98.1 F Pulse Rate 125 H 124 H 125 H Respiratory Rate 24 39 H Blood Pressure 143/85 H Pulse Oximetry 94 93 93 Oxygen Delivery Method Room Air Oxygen Flow Rate 10/08/23 21:23 10/08/23 21:23 10/08/23 21:30 Temperature Pulse Rate 119 H 109 H Respiratory Rate Blood Pressure 138/75 Pulse Oximetry 93 85 L Oxygen Delivery Method Oxygen Flow Rate 10/08/23 21:30 10/08/23 21:32 10/08/23 21:45 Temperature Pulse Rate 109 H Respiratory Rate 26 H Blood Pressure 131/73 Pulse Oximetry 86 L 95 Oxygen Delivery Method Room Air Oxygen Flow Rate 10/08/23 21:45 10/08/23 22:00 10/08/23 22:00 Temperature Pulse Rate 111 H Respiratory Rate 32 H Blood Pressure 128/74 116/69 Pulse Oximetry 96 Oxygen Delivery Method Oxygen Flow Rate 10/08/23 22:16 10/08/23 22:16 10/08/23 22:22 Temperature Pulse Rate 101 H 101 H Respiratory Rate 25 H 25 H Blood Pressure 71/42 L Pulse Oximetry 94 96 Oxygen Delivery Method Oxygen Flow Rate 10/08/23 22:22 10/08/23 22:27 10/08/23 22:27 Temperature Pulse Rate 97 H Respiratory Rate 23 Blood Pressure 87/54 L 86/51 L Pulse Oximetry 97 Oxygen Delivery Method Oxygen Flow Rate 10/08/23 22:30 10/08/23 22:30 10/08/23 22:40 Temperature Pulse Rate 100 H 97 H Respiratory Rate 29 H 39 H Blood Pressure 86/54 L Pulse Oximetry 97 98 Oxygen Delivery Method Oxygen Flow Rate 10/08/23 22:40 10/08/23 22:50 10/08/23 22:50 Temperature Pulse Rate 97 H Respiratory Rate 43 H Blood Pressure 82/51 L 84/52 L Pulse Oximetry 96 Oxygen Delivery Method Oxygen Flow Rate 10/08/23 23:00 10/08/23 23:01 10/08/23 23:01 Temperature Pulse Rate 95 H 111 H Respiratory Rate 42 H Blood Pressure 106/76 Pulse Oximetry 96 96 Oxygen Delivery Method Oxygen Flow Rate 10/08/23 23:16 10/08/23 23:16 10/08/23 23:20 Temperature Pulse Rate 105 H 103 H Respiratory Rate 25 H 25 H Blood Pressure 124/57 L Pulse Oximetry 98 98 Oxygen Delivery Method Oxygen Flow Rate 10/08/23 23:20 10/08/23 23:30 10/08/23 23:30 Temperature Pulse Rate 102 H Respiratory Rate 21 Blood Pressure 101/49 L 83/50 L Pulse Oximetry 95 Oxygen Delivery Method Nasal Cannula Oxygen Flow Rate 2 10/08/23 23:41 10/08/23 23:41 10/08/23 23:50 Temperature Pulse Rate 110 H 106 H Respiratory Rate Blood Pressure 121/60 Pulse Oximetry 98 97 Oxygen Delivery Method Oxygen Flow Rate 10/08/23 23:50 10/09/23 00:00 10/09/23 00:00 Temperature Pulse Rate 102 H Respiratory Rate Blood Pressure 94/54 L 93/55 L Pulse Oximetry 96 Oxygen Delivery Method Oxygen Flow Rate 10/09/23 00:10 10/09/23 00:10 10/09/23 00:20 Temperature Pulse Rate 102 H 104 H Respiratory Rate 24 Blood Pressure 102/51 L Pulse Oximetry 96 97 Oxygen Delivery Method Nasal Cannula Oxygen Flow Rate 2 10/09/23 00:20 10/09/23 00:30 10/09/23 00:30 Temperature Pulse Rate 105 H Respiratory Rate Blood Pressure 98/52 L 104/54 L Pulse Oximetry 96 Oxygen Delivery Method Oxygen Flow Rate 10/09/23 00:40 10/09/23 00:40 Temperature Pulse Rate 101 H Respiratory Rate 21 Blood Pressure 102/54 L Pulse Oximetry 97 Oxygen Delivery Method Oxygen Flow Rate MDM - Male Genitourinary Differential Diagnosis Differential diagnosis: Likely urinary tract infection, priapism and urethritis Lab Data 10/08/23 23:41 10/08/23 21:11 Labs: Lab Results 10/08/23 10/08/23 Range/Units 21:11 23:41 WBC 13.1 H (4.5-11.0) X10^3/uL RBC 3.61 L (4.5-5.9) X10^6/uL Hgb 11.9 L 10.0 L (13.5-17.5) g/dL Hct 35.6 L 30.5 L (41-53) % MCV 98.5 (80-100) fL MCH 32.8 (26-34) PG MCHC 33.3 (30-36) % RDW 14.4 (11.6-14.8) % Plt Count 290 (150-400) X10^3/uL Neut % (Auto) 70.6 (50-75) % Lymph % (Auto) 16.7 L (25-40) % [place] % (Auto) 9.9 (3-14) % Eos % (Auto) 2.4 (2-4) % Baso % (Auto) 0.4 (0-2) % Neut # (Auto) 9300 H (6145-9647) /uL Lymph # (Auto) 2200 (2519-3041) /uL [place] # (Auto) 1300 H (0-900) /uL Eos # (Auto) 300 (0-450) /uL Baso # (Auto) 100 (0-100) /uL PT 12.5 (9.4-12.5) SECONDS INR 1.1 (0.9-1.3) Sodium 135 L (137-145) mmol/L Potassium 3.8 (3.4-5.1) mmol/L Chloride 102 (98-107) mmol/L Carbon Dioxide 28 (22-32) mmol/L BUN 18 (9-20) mg/dL Creatinine 0.65 L (0.66-1.25) mg/dL Estimated GFR > 60 (>60) mL/min BUN/Creatinine Ratio 27.7 H (6-22) Glucose 255 H (80-110) mg/dL Calcium 9.9 (8.4-10.2) mg/dL Total Bilirubin 0.6 (0.2-1.3) mg/dL AST 17 (17-59) IU/L ALT 12 (<50) IU/L Alkaline Phosphatase 74 (38-126) U/L Total Protein 6.7 (6.3-8.2) g/dL Albumin 3.5 (3.5-5.0) g/dL Globulin 3.2 (1.7-4.1) g/dL Albumin/Globulin Ratio 1.1 (1.0-2.8) Blood Type O Positive Antibody Screen Negative Imaging Data CT scan - abdomen/pelvis: Radiologist's Impression: PROCEDURE: CT ABDOMEN PELVIS W CON INDICATIONS: COPIOUS HEMATURIA, RIGID ABDOMEN TECHNIQUE: After the administration of intravenous contrast, axial sections acquired from the lung bases to the pubic symphysis. Coronal and sagittal reformats were performed. For radiation dose reduction, the following was used: automated exposure control, adjustment of mA and/or kV according to patient size. COMPARISON: [facility], CT, CT ABDOMEN PELVIS W CON, 10/07/2023, 14:29. FINDINGS: Image quality: Diagnostic. Lower Chest: Bibasilar atelectasis. Very small hiatal hernia. ABDOMEN: Liver: No solid mass. Gallbladder: Cholelithiasis without CT evidence for acute cholecystitis. Biliary ducts: No biliary dilation. Pancreas: No ductal dilation. Spleen: Size is within normal limits. Adrenal Glands: No adrenal nodules. Kidneys and Ureters: Multiple punctate renal stones are again noted in the bilateral kidneys. No right-sided hydronephrosis. No right ureter stone. No left-sided hydronephrosis. Stable appearance of partially exophytic rim calcified left renal hypodense lesion likely representing a cyst. This measures 1.7 cm as before. No significant perinephric stranding on either side. No left ureteral stone. Stomach and Bowel: Normal colonic caliber, without significant wall thickening. Normal appendix. Moderate stool burden seen throughout the colon. Peritoneum: No abnormal intraperitoneal fluid. No free air. Ventral Wall: No significant ventral hernia. Abdominal Nodes: No retroperitoneal or mesenteric adenopathy by size criteria. Vessels: Aorta and inferior vena cava are normal in size. PELVIS: Pelvic Organs: There is prostatomegaly with coarse prostate calcifications and mass effect. Bladder: A Youngblood catheter is in place. There is new, moderate hyperdense material in the dependent portions of the urinary bladder with somewhat mass effect. The distal tip of the Youngblood catheter appears to be within this hyperdense material as there is now mild distension of the urinary bladder. Suspect possible occlusion of the Youngblood catheter by hemorrhagic products. No significant urinary bladder wall thickening. Pelvic Nodes: No enlarged lymph nodes. Miscellaneous: Fat containing left inguinal hernia without acute inflammation. Bones: No aggressive osseous abnormality. Status post left total hip arthroplasty. Moderate beam hardening/streak artifact from surgical hardware obscures visualization of the adjacent structures of the lower pelvis. IMPRESSION: 1. Interval development of moderate hyperdense material in the urinary bladder which appears to extend beyond the distal tip of the Youngblood catheter. There is also mild-moderate urinary bladder distention. Findings are suspicious for possible occlusion/partial occlusion of the Youngblood catheter by hemorrhagic products. Although less likely, hyperdense mass is conceivable given shape and appearance of this hyperdense material. No significant urinary bladder wall thickening. 2. Marked prostatomegaly with coarse calcifications and mass effect. 3. Stable appearance of rim calcified exophytic left renal cyst. Recommend follow-up ultrasound in 3-6 months. 4. Other chronic findings as above Dictated by: Julius Concepcion M.D. on 10/08/2023 at 22:07 Approved by: Julius Concepcion M.D. on 10/08/2023 at 22:19 [facility] Narrative Medical decision making narrative: Patient presenting for blocked Youngblood catheter and gross hematuria. On arrival patient has gross blood in the Youngblood tubing as well as multiple large clots around his urethral meatus and in his groin area. Abdomen is distended, tense, patient was in a lot of pain. Due to the rapid change in patient's clinical picture as well as distended and tense abdomen we will repeat CT imaging at this time. Call placed to Dr. Garcia for recommendations. He recommends placement of 3 way catheter, manual irrigation, continuous bladder irrigation, and 1 g of TXA. If possible PSA can be ordered and started on 5 mg of finasteride. He will see in the hospital tomorrow. Preliminary review of CT imaging shows no perforation or free air. There does appear to be large clot burden in the bladder. Nursing staff placed through a Youngblood with glydo and manual irrigation was started with removal of large clots. CBI initiated. After clots removed and bladder drained patient's pain improved, but blood pressure dropped to 80s over 50s with map in the low 60s. Repeat H&H shows decreased from initial hemoglobin of 12.8 on 10/06 2 11.9 on 10/07, repeat 10.0. Urine has begun to drink clear into the Youngblood bag. Type and screen has been sent to lab, patient does not meet transfusion threshold just yet, we will continue to monitor for signs of bleeding. Blood pressure stable for several hours with map consistently above 65. Patient to be admitted to hospitalist service for further treatment. Discharge Plan Departure Patient Disposition: Admitted As Inpatient Clinical Impression: Gross hematuria, Anemia, Complication, blocked Youngblood catheter Admit Date/Time: 10/09/23 00:46 Admit Provider: Jason Blanco
--- NOTE | 2023-10-08 20:57 | DI.CT.S_ITS ---
PROCEDURE: CT ABDOMEN PELVIS W CON INDICATIONS: COPIOUS HEMATURIA, RIGID ABDOMEN TECHNIQUE: After the administration of intravenous contrast, axial sections acquired from the lung bases to the pubic symphysis. Coronal and sagittal reformats were performed. For radiation dose reduction, the following was used: automated exposure control, adjustment of mA and/or kV according to patient size. COMPARISON: , CT, CT ABDOMEN PELVIS W CON, 10/07/2023, 14:29. FINDINGS: Image quality: Diagnostic. Lower Chest: Bibasilar atelectasis. Very small hiatal hernia. ABDOMEN: Liver: No solid mass. Gallbladder: Cholelithiasis without CT evidence for acute cholecystitis. Biliary ducts: No biliary dilation. Pancreas: No ductal dilation. Spleen: Size is within normal limits. Adrenal Glands: No adrenal nodules. Kidneys and Ureters: Multiple punctate renal stones are again noted in the bilateral kidneys. No right-sided hydronephrosis. No right ureter stone. No left-sided hydronephrosis. Stable appearance of partially exophytic rim calcified left renal hypodense lesion likely representing a cyst. This measures 1.7 cm as before. No significant perinephric stranding on either side. No left ureteral stone. Stomach and Bowel: Normal colonic caliber, without significant wall thickening. Normal appendix. Moderate stool burden seen throughout the colon. Peritoneum: No abnormal intraperitoneal fluid. No free air. Ventral Wall: No significant ventral hernia. Abdominal Nodes: No retroperitoneal or mesenteric adenopathy by size criteria. Vessels: Aorta and inferior vena cava are normal in size. PELVIS: Pelvic Organs: There is prostatomegaly with coarse prostate calcifications and mass effect. Bladder: A Ni catheter is in place. There is new, moderate hyperdense material in the dependent portions of the urinary bladder with somewhat mass effect. The distal tip of the Ni catheter appears to be within this hyperdense material as there is now mild distension of the urinary bladder. Suspect possible occlusion of the Ni catheter by hemorrhagic products. No significant urinary bladder wall thickening. Pelvic Nodes: No enlarged lymph nodes. Miscellaneous: Fat containing left inguinal hernia without acute inflammation. Bones: No aggressive osseous abnormality. Status post left total hip arthroplasty. Moderate beam hardening/streak artifact from surgical hardware obscures visualization of the adjacent structures of the lower pelvis. IMPRESSION: 1. Interval development of moderate hyperdense material in the urinary bladder which appears to extend beyond the distal tip of the Ni catheter. There is also mild-moderate urinary bladder distention. Findings are suspicious for possible occlusion/partial occlusion of the Ni catheter by hemorrhagic products. Although less likely, hyperdense mass is conceivable given shape and appearance of this hyperdense material. No significant urinary bladder wall thickening. 2. Marked prostatomegaly with coarse calcifications and mass effect. 3. Stable appearance of rim calcified exophytic left renal cyst. Recommend follow-up ultrasound in 3-6 months. 4. Other chronic findings as above Dictated by: Julius Concepcion M.D. on 10/08/2023 at 22:07 Approved by: Jluius Concepcion M.D. on 10/08/2023 at 22:19
[2023-10-08] MEDS: TRANEXAMIC ACID 1,000 MG in SODIUM CHLORIDE 0.9% 100 ML 200 MG IV (21:05)
[2023-10-08] MEDS: HYDROMORPHONE 1 MG INJ IV (21:06)
[2023-10-08 21:22] LABS: Add Manual Diff / Slide Review NO; Basophils Absolute Auto 100 /uL (0-100); Basophils Percent Auto 0.4 % (0-2); Eosinophils Absolute Auto 300 /uL (0-450); Eosinophils Percent Auto 2.4 % (2-4); Hematocrit 35.6 % (41-53); Hemoglobin 11.9 g/dL (13.5-17.5); Lymphocytes Absolute Auto 2200 /uL (1100-4500); Lymphocytes Percent Auto 16.7 % (25-40); Mean Corpuscular HGB Conc 33.3 % (30-36); Mean Corpuscular Hemoglobin 32.8 PG (26-34); Mean Corpuscular Volume 98.5 fL (80-100); Monocytes Absolute Auto 1300 /uL (0-900); Monocytes Percent Auto 9.9 % (3-14); Neutrophils Absolute Auto 9300 /uL (1500-7000); Neutrophils Percent Auto 70.6 % (50-75); Platelet Count 290 X10^3/uL (150-400); Red Blood Cell Count 3.61 X10^6/uL (4.5-5.9); Red Cell Distribution Width 14.4 % (11.6-14.8); White Blood Cell Count 13.1 X10^3/uL (4.5-11.0)
[2023-10-08 21:32] LABS: INR 1.1 (0.9-1.3); Prothrombin Time 12.5 SECONDS (9.4-12.5)
[2023-10-08 21:54] LABS: Alanine Aminotransferase 12 IU/L (<50); Albumin 3.5 g/dL (3.5-5.0); Albumin Globulin Ratio 1.1 (1.0-2.8); Alkaline Phosphatase 74 U/L (38-126); Aspartate Aminotransferase 17 IU/L (17-59); BUN Creatinine Ratio 27.7 (6-22); Bilirubin Total 0.6 mg/dL (0.2-1.3); Blood Urea Nitrogen 18 mg/dL (9-20); Calcium 9.9 mg/dL (8.4-10.2); Carbon Dioxide 28 mmol/L (22-32); Chloride 102 mmol/L (98-107); Estimated Glomerular Filt Rate > 60 mL/min (>60); Globulin 3.2 g/dL (1.7-4.1); Glucose 255 mg/dL (80-110); HEMOLYSIS < 15 (0-50); Potassium 3.8 mmol/L (3.4-5.1); Sodium 135 mmol/L (137-145); Total Protein 6.7 g/dL (6.3-8.2)
[2023-10-08] MEDS: SODIUM CHLORIDE 0.9% 1,000 ML 1000 ML IV ×2 (22:23→23:45)
[2023-10-08] MEDS: LIDOCAINE 2% (GLYDO) 6 ML GEL TOP (22:41)
--- NOTE | 2023-10-08 22:52 | PC.NURSE ---
pt presents to ER with catheter in place. pt is pale and diaphoretic, abdomen distended and hard. wanted 24fr [address] catheter placed and manual flush prior to CBI. previous catheter removed with little discomfort to patient upon return from CT. new catheter placed with minimal discomfort to patient, dark red blood present in youngblood tubing with liltle to no drainage. 10cc or sterile saline used to flush catheter from main drainage port with a 60cc cath tip syringe. immediate easily withdrawn 60cc with profuse amounts of clots. withdrawl of cath tip syringe yeilded 700 of dark red blood with profuse amounts of small clots. patient states the pain is now gone and he is feeling no pressure in his abdomen. then used 10cc sterile saline in 60cc cath tip syringe to forcefully flush out catheter. mutliple return of 60cc with large amounts of clot. continued in the manner until 20cc flush for a total of 200cc returned to syringe with no clots, blood only. had provider assess patient at this point, whose blood pressure had decreased to 70s/50s. pt states he does feel slightly dizzy and very tired, he would like to take a nap. verbal order for 1000cc bolus of saline via IV given. patient care to clean perineal area with plan to clean bedding after patient has rested. pressures monitored. CBI started at low and slow drip.
--- NOTE | 2023-10-08 23:21 | PC.NURSE ---
changed bed linens for patient
--- NOTE | 2023-10-08 23:27 | PC.NURSE ---
informed night nurse and provider that upon linen change, catheter stopped flowing. CBI turned up and dark red blood with clots visualized coming out of catheter. once flowing again, CBI turned down and light pink tinged yellow fluid coming out of bladder. catheter emptied of 1750 bloody urine, charted in I/O
[2023-10-08 23:48] LABS: Hematocrit 30.5 % (41-53)
[2023-10-09] VITALS (65 sets, daily range): BP systolic 86–152; BP diastolic 50–71; PULSE 91–128; RESP 16–44; TEMP 36.6–38.3; O2SAT 90–99; BMI 37.7
--- NOTE | 2023-10-09 01:27 | PM.HP.1 ---
History of Present Illness History of Present Illness Date Patient Seen: 10/09/23 Chief complaint: Urinary retention Narrative: 83 y/o with PMH of BPH with indwelling In, recent hospitalization for elective Lt REILLY with subsequent DC to SNF, developed hematuria few days ago and was seen several times in the ED. Today he presented with clogged Ni. Started on CBI and at one point became hypotensive, possible vagal reaction. Dropped Hb by 2 points. Discussed with urologist, admitted to ICU with hematuria, hypotension and hemorrhagic anemia. [facility] Medical History Ni catheter in place (2023) Edema Osteoarthritis Uses self-applied continuous glucose monitoring device Diabetes (~2022) Kidney stones Enlarged prostate HLD (hyperlipidemia) Seasonal allergies VILLA on CPAP Surgical History Hx of laminectomy History of total left knee replacement History of total right knee replacement H/O vasectomy Hx of hernia repair Social History household members: none other: He lives alone on [facility]. Smoking Status: Former smoker alcohol intake: never Meds Home Medications and Allergies Home Medications Medication Instructions Recorded Confirmed Type hydrochlorothiazide 12.5 mg capsule 12.5 mg PO QDAY ##0 11/09/16 10/09/23 History acetaminophen 500 mg capsule 500 mg PO Q4H PRN Pain 08/23/23 10/09/23 History allopurinol 300 mg tablet 300 mg PO DAILY 08/23/23 10/09/23 History finasteride 5 mg tablet 5 mg PO BEDTIME 08/23/23 10/09/23 History insulin aspart U-100 100 unit/mL 16 unit SUBCUT BID 08/23/23 10/09/23 History (3 mL) subcutaneous pen (Novolog FlexPen U-100 Insulin aspart) insulin glargine 100 unit/mL (3 29 unit SUBCUT QAM 08/23/23 10/09/23 History mL) subcutaneous pen (Lantus Solostar U-100 Insulin) lisinopril 10 mg tablet 20 mg PO QDAY 08/23/23 10/09/23 History loratadine 10 mg tablet 10 mg PO DAILY 08/23/23 10/09/23 History metformin 500 mg tablet 500 mg PO QAM 08/23/23 10/09/23 History simvastatin 20 mg tablet 20 mg PO DAILY 08/23/23 10/09/23 History tamsulosin 0.4 mg capsule 0.4 mg PO BEDTIME 08/23/23 10/09/23 History hydroxyzine HCl 25 mg tablet 25 mg PO Q4H PRN Nausea #60 tabs 09/08/23 Rx oxycodone 5 mg capsule 5 mg PO Q4H PRN pain #20 caps 09/08/23 10/09/23 Rx sulfamethoxazole 800 1 tab PO BID #20 tabs 09/08/23 Rx mg-trimethoprim 160 mg tablet Allergies Allergy/AdvReac Type Severity Reaction Status Date / Time No Known Drug Allergies Allergy Verified 10/08/23 15:14 Review of Systems Constitutional Comments: w/o fever or chills Cardiovascular Comments: w/o chest pain Respiratory Comments: w/o shortness of breath Gastrointestinal Comments: w/o abdominal pain Genitourinary Comments: episodic bladder spasms blood in the urine Exam Vital Signs (past 8 hours): - 10/08/23 20:58 10/08/23 20:58 10/08/23 21:00 Temperature 98.1 F Pulse Rate 125 H 124 H 125 H Respiratory Rate 24 39 H Blood Pressure 143/85 H Pulse Oximetry 94 93 93 Oxygen Delivery Method Room Air Oxygen Flow Rate 10/08/23 21:23 10/08/23 21:23 10/08/23 21:30 Temperature Pulse Rate 119 H 109 H Respiratory Rate Blood Pressure 138/75 Pulse Oximetry 93 85 L Oxygen Delivery Method Oxygen Flow Rate 10/08/23 21:30 10/08/23 21:32 10/08/23 21:45 Temperature Pulse Rate 109 H Respiratory Rate 26 H Blood Pressure 131/73 Pulse Oximetry 86 L 95 Oxygen Delivery Method Room Air Oxygen Flow Rate 10/08/23 21:45 10/08/23 22:00 10/08/23 22:00 Temperature Pulse Rate 111 H Respiratory Rate 32 H Blood Pressure 128/74 116/69 Pulse Oximetry 96 Oxygen Delivery Method Oxygen Flow Rate 10/08/23 22:16 10/08/23 22:16 10/08/23 22:22 Temperature Pulse Rate 101 H 101 H Respiratory Rate 25 H 25 H Blood Pressure 71/42 L Pulse Oximetry 94 96 Oxygen Delivery Method Oxygen Flow Rate 10/08/23 22:22 10/08/23 22:27 10/08/23 22:27 Temperature Pulse Rate 97 H Respiratory Rate 23 Blood Pressure 87/54 L 86/51 L Pulse Oximetry 97 Oxygen Delivery Method Oxygen Flow Rate 10/08/23 22:30 10/08/23 22:30 10/08/23 22:40 Temperature Pulse Rate 100 H 97 H Respiratory Rate 29 H 39 H Blood Pressure 86/54 L Pulse Oximetry 97 98 Oxygen Delivery Method Oxygen Flow Rate 10/08/23 22:40 10/08/23 22:50 10/08/23 22:50 Temperature Pulse Rate 97 H Respiratory Rate 43 H Blood Pressure 82/51 L 84/52 L Pulse Oximetry 96 Oxygen Delivery Method Oxygen Flow Rate 10/08/23 23:00 10/08/23 23:01 10/08/23 23:01 Temperature Pulse Rate 95 H 111 H Respiratory Rate 42 H Blood Pressure 106/76 Pulse Oximetry 96 96 Oxygen Delivery Method Oxygen Flow Rate 10/08/23 23:16 10/08/23 23:16 10/08/23 23:20 Temperature Pulse Rate 105 H 103 H Respiratory Rate 25 H 25 H Blood Pressure 124/57 L Pulse Oximetry 98 98 Oxygen Delivery Method Oxygen Flow Rate 10/08/23 23:20 10/08/23 23:30 10/08/23 23:30 Temperature Pulse Rate 102 H Respiratory Rate 21 Blood Pressure 101/49 L 83/50 L Pulse Oximetry 95 Oxygen Delivery Method Nasal Cannula Oxygen Flow Rate 2 10/08/23 23:41 10/08/23 23:41 10/08/23 23:50 Temperature Pulse Rate 110 H 106 H Respiratory Rate Blood Pressure 121/60 Pulse Oximetry 98 97 Oxygen Delivery Method Oxygen Flow Rate 10/08/23 23:50 10/09/23 00:00 10/09/23 00:00 Temperature Pulse Rate 102 H Respiratory Rate Blood Pressure 94/54 L 93/55 L Pulse Oximetry 96 Oxygen Delivery Method Oxygen Flow Rate 10/09/23 00:10 10/09/23 00:10 10/09/23 00:20 Temperature Pulse Rate 102 H 104 H Respiratory Rate 24 Blood Pressure 102/51 L Pulse Oximetry 96 97 Oxygen Delivery Method Nasal Cannula Oxygen Flow Rate 2 10/09/23 00:20 10/09/23 00:30 10/09/23 00:30 Temperature Pulse Rate 105 H Respiratory Rate Blood Pressure 98/52 L 104/54 L Pulse Oximetry 96 Oxygen Delivery Method Oxygen Flow Rate 10/09/23 00:40 10/09/23 00:40 10/09/23 00:50 Temperature Pulse Rate 101 H 103 H Respiratory Rate 21 21 Blood Pressure 102/54 L Pulse Oximetry 97 98 Oxygen Delivery Method Nasal Cannula Oxygen Flow Rate 2 10/09/23 00:50 10/09/23 01:00 10/09/23 01:00 Temperature Pulse Rate 103 H Respiratory Rate 20 Blood Pressure 99/58 L 106/58 L Pulse Oximetry 98 Oxygen Delivery Method Nasal Cannula Oxygen Flow Rate 2 Oxygen Delivery Method Nasal Cannula Oxygen Flow Rate 2 Const General: comfortable Other: NAD Resp Other: normal respiratory effort Cardio Other: RRR Other: Ni beg with hematuria Skin Other: left heel pressure wound Extrem Other: w/o swelling Psych Other: appropriate mood Objective Labs 10/08/23 23:41 10/08/23 21:11 Labs: Laboratory Results - last 24 hr 10/08/23 10/08/23 21:11 23:41 WBC 13.1 H RBC 3.61 L Hgb 11.9 L 10.0 L Hct 35.6 L 30.5 L MCV 98.5 MCH 32.8 MCHC 33.3 RDW 14.4 Plt Count 290 Neut % (Auto) 70.6 Lymph % (Auto) 16.7 L [place] % (Auto) 9.9 Eos % (Auto) 2.4 Baso % (Auto) 0.4 Neut # (Auto) 9300 H Lymph # (Auto) 2200 [place] # (Auto) 1300 H Eos # (Auto) 300 Baso # (Auto) 100 PT 12.5 INR 1.1 Sodium 135 L Potassium 3.8 Chloride 102 Carbon Dioxide 28 BUN 18 Creatinine 0.65 L Estimated GFR > 60 BUN/Creatinine Ratio 27.7 H Glucose 255 H Calcium 9.9 Total Bilirubin 0.6 AST 17 ALT 12 Alkaline Phosphatase 74 Total Protein 6.7 Albumin 3.5 Globulin 3.2 Albumin/Globulin Ratio 1.1 Blood Type O Positive Antibody Screen Negative Assessment & Plan Assessment and plan (1) Complication, blocked Ni catheter: Status: Acute (2) Gross hematuria: Status: Acute (3) Acute posthemorrhagic anemia: Status: Acute (4) Gout: Status: Acute Assessment & Plan narrative: Gross Hematuria - CBI - urology evaluation Acute Posthemorrhagic Anemia - CBC at 5 am - Hb down by 2 points (12 to 10) BPH / Chronic Urinary Retention - Flomax, Finasteride - with catheter since 4 months ago - supposed to have prostatectomy soon Hypotension / Hx of HTN - at home on HCTZ and Lisinopril - both held - hypotensive in the ED, likely vagal response to CBI VILLA - CPAP Gout - Allopurinol Lt heel pressure sore - wound care, should not bear weight - complicated recovery from recent Lt REILLY Primary OA of hips / s/p Lt REILLY a month ago - stable DVT prophylaxis - SCDs
[2023-10-09 03:34] LABS: MRSA (Nasal) PCR NOT DETECTED (Not Detect)
--- NOTE | 2023-10-09 06:13 | PC.NURSE ---
cage shift manager RN note pt arrived from ER via stretcher, A&Ox4, denies pain, VSS, afebrile, SR/ST 90-100s, weak DP pulses, 1+ lower leg edema, lungs clear, O2 sats >90% on 1L NC, abd soft with BS, CBI draining grade 1-2 hematuria, skin pale and cool, healing incision to L hip, L foot wrapped for ulcer on heel, foot drop to L foot, wiggles toes slightly, bilat periph IV sites patent, call crump within reach
--- NOTE | 2023-10-09 07:47 | P.HP_ITS ---
History of Present Illness History of Present Illness Date Patient Seen: 10/09/23 Chief complaint: Urinary retention Narrative: From night doctor: 83 y/o with PMH of BPH with indwelling Ni, recent hospitalization for elective Lt REILLY with subsequent DC to SNF, developed hematuria few days ago and was seen several times in the ED. Today he presented with clogged Ni. Started on CBI and at one point became hypotensive, possible vagal reaction. Dropped Hb by 2 points. Discussed with urologist, admitted to ICU with hematuria, hypotension and hemorrhagic anemia. He is doing better this morning. He did have hematuria which resolved with TBI. The emergency physician contact the Urology last night and they will see him today. The patient has had a catheter in for several months due to retention and has a planned procedure with the urologist in [place] in the near future. He is also on finasteride and Flomax. The patient notes that hematuria as a new and a recent issue which followed a catheter change. Presumably this related to catheter-induced trauma. He denies recent symptoms of infection. [facility] Medical History Ni catheter in place (2023) Edema Osteoarthritis Uses self-applied continuous glucose monitoring device Diabetes (~2022) Kidney stones Enlarged prostate HLD (hyperlipidemia) Seasonal allergies VILLA on CPAP Surgical History Hx of laminectomy History of total left knee replacement History of total right knee replacement H/O vasectomy Hx of hernia repair Social History household members: none other: He lives alone on [facility]. Smoking Status: Former smoker alcohol intake: never Meds Home Medications and Allergies Home Medications Medication Instructions Recorded Confirmed Type hydrochlorothiazide 12.5 mg capsule 12.5 mg PO QDAY ##0 11/09/16 10/09/23 History acetaminophen 500 mg capsule 500 mg PO Q4H PRN Pain 08/23/23 10/09/23 History allopurinol 300 mg tablet 300 mg PO DAILY 08/23/23 10/09/23 History finasteride 5 mg tablet 5 mg PO BEDTIME 08/23/23 10/09/23 History insulin aspart U-100 100 unit/mL 16 unit SUBCUT BID 08/23/23 10/09/23 History (3 mL) subcutaneous pen (Novolog FlexPen U-100 Insulin aspart) insulin glargine 100 unit/mL (3 29 unit SUBCUT QAM 08/23/23 10/09/23 History mL) subcutaneous pen (Lantus Solostar U-100 Insulin) lisinopril 10 mg tablet 20 mg PO QDAY 08/23/23 10/09/23 History loratadine 10 mg tablet 10 mg PO DAILY 08/23/23 10/09/23 History metformin 500 mg tablet 500 mg PO QAM 08/23/23 10/09/23 History simvastatin 20 mg tablet 20 mg PO DAILY 08/23/23 10/09/23 History tamsulosin 0.4 mg capsule 0.4 mg PO BEDTIME 08/23/23 10/09/23 History hydroxyzine HCl 25 mg tablet 25 mg PO Q4H PRN Nausea #60 tabs 09/08/23 Rx oxycodone 5 mg capsule 5 mg PO Q4H PRN pain #20 caps 09/08/23 10/09/23 Rx sulfamethoxazole 800 1 tab PO BID #20 tabs 09/08/23 Rx mg-trimethoprim 160 mg tablet aspirin 81 mg chewable tablet 81 mg PO BID 10/09/23 10/09/23 History (Aspirin Childrens) tramadol 50 mg tablet 50 mg PO Q6H PRN Pain (Scale Score 10/09/23 10/09/23 History 7-10) Allergies Allergy/AdvReac Type Severity Reaction Status Date / Time No Known Drug Allergies Allergy Verified 10/08/23 15:14 Review of Systems Review of Systems Narrative: All else reviewed and otherwise unremarkable except as noted in the history and physical. Exam Vital Signs (past 8 hours): - 10/08/23 23:50 10/08/23 23:50 10/09/23 00:00 Temperature Pulse Rate 106 H Respiratory Rate Blood Pressure 94/54 L 93/55 L Pulse Oximetry 97 Oxygen Delivery Method Oxygen Flow Rate 10/09/23 00:00 10/09/23 00:10 10/09/23 00:10 Temperature Pulse Rate 102 H 102 H Respiratory Rate 24 Blood Pressure 102/51 L Pulse Oximetry 96 96 Oxygen Delivery Method Nasal Cannula Oxygen Flow Rate 2 10/09/23 00:20 10/09/23 00:20 10/09/23 00:30 Temperature Pulse Rate 104 H 105 H Respiratory Rate Blood Pressure 98/52 L Pulse Oximetry 97 96 Oxygen Delivery Method Oxygen Flow Rate 10/09/23 00:30 10/09/23 00:40 10/09/23 00:40 Temperature Pulse Rate 101 H Respiratory Rate 21 Blood Pressure 104/54 L 102/54 L Pulse Oximetry 97 Oxygen Delivery Method Oxygen Flow Rate 10/09/23 00:48 10/09/23 00:50 10/09/23 00:50 Temperature Pulse Rate 103 H Respiratory Rate 21 Blood Pressure 99/58 L Pulse Oximetry 98 Oxygen Delivery Method Nasal Cannula Nasal Cannula Oxygen Flow Rate 2 10/09/23 01:00 10/09/23 01:00 10/09/23 01:10 Temperature Pulse Rate 103 H Respiratory Rate 20 Blood Pressure 106/58 L 105/56 L Pulse Oximetry 98 Oxygen Delivery Method Nasal Cannula Oxygen Flow Rate 2 10/09/23 01:10 10/09/23 01:20 10/09/23 01:20 Temperature Pulse Rate 102 H 100 H Respiratory Rate 20 20 Blood Pressure 99/54 L Pulse Oximetry 99 99 Oxygen Delivery Method Oxygen Flow Rate 10/09/23 01:30 10/09/23 01:30 10/09/23 02:00 Temperature 98.2 F Pulse Rate 100 H 110 H Respiratory Rate 19 22 Blood Pressure 100/59 L 115/56 L Pulse Oximetry 99 98 Oxygen Delivery Method Nasal Cannula Oxygen Flow Rate 2 1 10/09/23 02:11 10/09/23 02:30 10/09/23 02:30 Temperature Pulse Rate 107 H 101 H Respiratory Rate 32 H 24 Blood Pressure 102/56 L Pulse Oximetry 95 97 Oxygen Delivery Method Oxygen Flow Rate 1 10/09/23 03:00 10/09/23 03:00 10/09/23 03:30 Temperature Pulse Rate 100 H 98 H Respiratory Rate 16 22 Blood Pressure 110/61 Pulse Oximetry 92 97 Oxygen Delivery Method Oxygen Flow Rate 1 10/09/23 03:30 10/09/23 03:33 10/09/23 03:33 Temperature Pulse Rate 102 H Respiratory Rate 20 Blood Pressure 86/54 L 111/66 Pulse Oximetry 98 Oxygen Delivery Method Oxygen Flow Rate 10/09/23 04:00 10/09/23 04:00 10/09/23 04:30 Temperature 97.8 F Pulse Rate 95 H Respiratory Rate 21 Blood Pressure 99/55 L 114/61 Pulse Oximetry 97 Oxygen Delivery Method Oxygen Flow Rate 1 1 10/09/23 04:30 10/09/23 05:00 10/09/23 05:00 Temperature Pulse Rate 103 H 93 H Respiratory Rate 19 21 Blood Pressure 92/50 L Pulse Oximetry 97 96 Oxygen Delivery Method Oxygen Flow Rate 1 1 10/09/23 05:30 10/09/23 05:30 10/09/23 06:00 Temperature Pulse Rate 93 H Respiratory Rate 22 Blood Pressure 101/57 L 101/55 L Pulse Oximetry 97 Oxygen Delivery Method Oxygen Flow Rate 10/09/23 06:00 Temperature Pulse Rate 93 H Respiratory Rate 23 Blood Pressure Pulse Oximetry 97 Oxygen Delivery Method Oxygen Flow Rate 1 Oxygen Delivery Method Nasal Cannula Oxygen Flow Rate 1 Narrative Exam Narrative: NAD, alert and oriented, fluent speech, calm. Normocephalic skull, EOMI, anicteric sclera, symmetric pupils. Oropharynx unremarkable, no droop. Neck supple, midline trachea, no adenopathy. Lungs clear, normal rate and effort. Heart regular, no murmur gallop or rub. Abdomen is soft, non distended and non tender. Extremities are free of edema. Skin is free of rash or lesions. Joints are not swollen or deformed. Judgment appears to be normal. Objective Imaging CT scan - abdomen: Radiologist's impression: 1. Interval development of moderate hyperdense material in the urinary bladder which appears to extend beyond the distal tip of the Ni catheter. There is also mild-moderate urinary bladder distention. Findings are suspicious for possible occlusion/partial occlusion of the Ni catheter by hemorrhagic products. Although less likely, hyperdense mass is conceivable given shape and appearance of this hyperdense material. No significant urinary bladder wall thickening. 2. Marked prostatomegaly with coarse calcifications and mass effect. 3. Stable appearance of rim calcified exophytic left renal cyst. Recommend follow-up ultrasound in 3-6 months. 4. Other chronic findings as above Labs 10/08/23 23:41 10/08/23 21:11 Labs: Laboratory Results - last 24 hr 10/08/23 10/08/23 10/09/23 21:11 23:41 01:55 WBC 13.1 H RBC 3.61 L Hgb 11.9 L 10.0 L Hct 35.6 L 30.5 L MCV 98.5 MCH 32.8 MCHC 33.3 RDW 14.4 Plt Count 290 Neut % (Auto) 70.6 Lymph % (Auto) 16.7 L [place] % (Auto) 9.9 Eos % (Auto) 2.4 Baso % (Auto) 0.4 Neut # (Auto) 9300 H Lymph # (Auto) 2200 [place] # (Auto) 1300 H Eos # (Auto) 300 Baso # (Auto) 100 PT 12.5 INR 1.1 Sodium 135 L Potassium 3.8 Chloride 102 Carbon Dioxide 28 BUN 18 Creatinine 0.65 L Estimated GFR > 60 BUN/Creatinine Ratio 27.7 H Glucose 255 H Calcium 9.9 Total Bilirubin 0.6 AST 17 ALT 12 Alkaline Phosphatase 74 Total Protein 6.7 Albumin 3.5 Globulin 3.2 Albumin/Globulin Ratio 1.1 Nasal Screen MRSA (PCR) Not detected Blood Type O Positive Antibody Screen Negative Assessment & Plan Assessment & Plan narrative: 1. Hypotension, new and improved. 2. Gross hematuria, present on admission and active. 3. Obstructed Ni catheter, present on admission and at 4. BPH, present on admission and active. 5. Hypertension, not present on admission are active. 6. Blood loss anemia, present on admission and stable. 7. VILLA, present on admission and stable. 8. Gout, present on admission and stable Plan: -discuss with Urology. -anticipate stopping TBI observing for recurrent hematuria. -continue current medications. -likely discharge back to senior care facility very soon. Time Spent With Patient Time with patient: 30 to 49 minutes with 50% spent counseling/coordinating care Quality MIPS - Admit I confirm the patient?s Advance Care Plan is present, Code status is documented, Surrogate decision maker is in patient?s record [If Yes, STOP here]: Yes [facility] - Meds 'Current medications' to include all prescriptions, [id number] products, herbals, cannabis/cannabidiol products, and vitamin/mineral/dietary (nutritional) supplements. I have utilized all available resources to obtain, update, or review the patient?s current medications. [If Yes, STOP here]: Yes
[2023-10-09] MEDS: allopurinoL 100 MG TABLET 300 MG PO (08:11)
[2023-10-09] MEDS: LORATADINE 10 MG TABLET PO (08:12)
[2023-10-09] MEDS: INSULIN GLARGINE 100 UNIT/ML 3ML PEN 29 UNIT SUBCUT (08:13)
[2023-10-09] MEDS: INSULIN LISPRO 100 UNIT/ML 3ML VIAL SUBCUT ×3 (08:20→17:05)
[2023-10-09] MEDS: METFORMIN HCL 500 MG TABLET PO (08:31)
[2023-10-09 10:07] LABS: Add Manual Diff / Slide Review NO; Basophils Absolute Auto 0 /uL (0-100); Basophils Percent Auto 0.3 % (0-2); Eosinophils Absolute Auto 300 /uL (0-450); Eosinophils Percent Auto 2.6 % (2-4); Hemoglobin 10.5 g/dL (13.5-17.5); Lymphocytes Absolute Auto 1200 /uL (1100-4500); Lymphocytes Percent Auto 11.1 % (25-40); Mean Corpuscular HGB Conc 32.9 % (30-36); Mean Corpuscular Hemoglobin 32.8 PG (26-34); Mean Corpuscular Volume 99.7 fL (80-100); Monocytes Absolute Auto 1200 /uL (0-900); Monocytes Percent Auto 10.8 % (3-14); Neutrophils Absolute Auto 8300 /uL (1500-7000); Neutrophils Percent Auto 75.2 % (50-75); Platelet Count 253 X10^3/uL (150-400); Red Blood Cell Count 3.21 X10^6/uL (4.5-5.9); Red Cell Distribution Width 14.3 % (11.6-14.8); White Blood Cell Count 11.1 X10^3/uL (4.5-11.0)
[2023-10-09 10:21] LABS: BUN Creatinine Ratio 26.3 (6-22); Blood Urea Nitrogen 15 mg/dL (9-20); Calcium 9.7 mg/dL (8.4-10.2); Carbon Dioxide 31 mmol/L (22-32); Chloride 102 mmol/L (98-107); Estimated Glomerular Filt Rate > 60 mL/min (>60); Glucose 170 mg/dL (80-110); HEMOLYSIS < 15 (0-50); Sodium 135 mmol/L (137-145)
--- NOTE | 2023-10-09 10:38 | PC.NURSE ---
1035 - I paused per Dr Velazco
--- NOTE | 2023-10-09 12:35 | CM.DANOTE ---
DCP Assessment Pt is a 83yo M here under INPT status with urinary retention complications. Pt had a recent LTHA here with Dr. Contreras on 09.05.23. Pt was discharged to [facility] on 09/08/23/. Developed a hematuria and has been to the ED 3 times in the past 3 days (10/06, 10/07, 10/08). Now presents with clogged youngblood. Started on CBI. PCP Naomie Helm Payer Medicare and for life CURTAIN ROLLER ASSEMBLER reviewed EMR. Per hospitalist in morning rounds, urology consult pending. Anticipate stable to dc tomorrow to return to [facility]. Per previous DCP assessment, pt lives alone in [place]. Dtr Bhavna lives nearby and is a good support for him. pt is indep at baseline and plans to return home when stable after [facility]. CURTAIN ROLLER ASSEMBLER spoke with tito from [facility]. Agreeable and able to take pt back when medically stable. Transport tentatively arranged for 11:15am 10/10/23. No PASRR needed. CURTAIN ROLLER ASSEMBLER met with pt in room. Pt pleasant and chatty. Agreeable to return to [facility] when stable. CURTAIN ROLLER ASSEMBLER answered questions about insurance to best of ability. Provided copy of IMM. CURTAIN ROLLER ASSEMBLER updated RN/provider on tentative dcp. Plan: anticipate dc to [facility] when medically stable, tentatively arranged for 11:15am Thur morning,. CM team will continue to follow closely. CIPRIANO Angulo Discharge Planning/Care Management CM Discharge Assessment Start: 10/09/23 12:31 Freq: Status: Active Protocol: Document 10/09/23 12:31 (Rec: 10/09/23 12:33 [id number]) Discharge Planning Assessment Assigned Phosphatic Fertilizer Supervisor CIPRIANO Abarca DPOA/Assigned Designee Name Bhavna lior Contact Information [phone] Advance Directives? Yes Advance Directives on File No History Provided By Patient,Medical Record Prior Living Arrangements Skilled Nurse Facility Household Members none Comment local supportive dtr lives close by Type of transporation used prior to Drives own vehicle admit Facility Name Admitted From: [facility] Willing to Return to Facility? Yes Independent with ADL's Yes: not currently but at baseline IADLs Is patient alert and oriented? Yes Patient/Family Preference [facility] Discharge Plan [facility] Facility Transportation Arrangement Facility van Referrals Initiated [facility] If patient plan is SNF: Has PASSR been Yes completed? SNF/HH Preference Return to [facility] Has Agency SNF been contacted Yes Comment Tito from [facility] reports able to accept back whenever medically stable Whiteboard Updated in Patient Room with Yes name and ext. # of Phosphatic Fertilizer Supervisor Review Status In Process Please Provide Date Initial DC 10/09/23 Assessment Was Performed Next Review Type Continued Stay Review
[2023-10-09] MEDS: ACETAMINOPHEN 325 MG TABLET 650 MG PO (17:14)
--- NOTE | 2023-10-09 18:19 | P.CONS_ITS ---
History of Present Illness Consult details Date Patient Seen: 10/09/23 Time Patient Seen: 05:50 Chief complaint: Urinary retention Reason for consult: History of urinary retention, traumatic catheter exchange 2 day ago, cathet Requesting provider: Garcia Velazco Narrative: Patient is an 83-year-old male presenting to the [facility] ED [facility] from [facility] with presenting complaint of gross hematuria and catheter dysfunction. Situation was evaluated, the dysfunctional catheter was removed and replaced. Catheter was hand irrigated. CT confirmed balloon and catheter tip within the bladder lumen prior to transfer back to [facility] facility. The patient presented again last evening with continued issues of gross hematuria and clot dysfunction. Catheter was again exchanged and irrigated. Initially clinical situation looked improved and stable in at last discussion plan was to transfer him back to [facility] facility and close follow-up with [facility], or alternatively with his primary urologist in [facility], Dr. Kwame Alvarado. At some point ED provider elected for in-hospital admission. I was contacted about mid day today with update. The patient reports history of acute urinary retention of approximately 2 L in late April of 2023. He also has history of left hip DJD. He underwent left hip arthroplasty 09/05/[address] [facility] by Dr. Contreras. Preliminary urine culture since admission is growing Klebsiella. Patient spiked a fever this afternoon. Patient reports episodic severe bladder spasms. Apparently there is a tentative plan for transfer care to a urologist in ever to undergo HoLEP. Meds Home Medications and Allergies Home Medications Medication Instructions Recorded Confirmed Type hydrochlorothiazide 12.5 mg capsule 12.5 mg PO DAILY ##0 11/09/16 10/09/23 History acetaminophen 500 mg capsule 500 mg PO Q4H PRN Pain 08/23/23 10/09/23 History allopurinol 300 mg tablet 300 mg PO DAILY 08/23/23 10/09/23 History finasteride 5 mg tablet 5 mg PO BEDTIME 08/23/23 10/09/23 History insulin aspart U-100 100 unit/mL 16 unit SUBCUT BID 08/23/23 10/09/23 History (3 mL) subcutaneous pen (Novolog FlexPen U-100 Insulin aspart) insulin glargine 100 unit/mL (3 29 unit SUBCUT DAILY 08/23/23 10/09/23 History mL) subcutaneous pen (Lantus Solostar U-100 Insulin) lisinopril 10 mg tablet 20 mg PO DAILY 08/23/23 10/09/23 History loratadine 10 mg tablet 10 mg PO DAILY 08/23/23 10/09/23 History simvastatin 20 mg tablet 20 mg PO DAILY 08/23/23 10/09/23 History tamsulosin 0.4 mg capsule 0.4 mg PO BEDTIME 08/23/23 10/09/23 History oxycodone 5 mg capsule 5 mg PO Q4H PRN pain #20 caps 09/08/23 10/09/23 Rx aspirin 81 mg chewable tablet 81 mg PO BID 10/09/23 10/09/23 History (Aspirin Childrens) metformin 500 mg tablet,extended 500 mg PO DAILY 10/09/23 10/09/23 History release 24hr (osmotic) tramadol 50 mg tablet 50 mg PO Q6H PRN Pain (Scale Score 10/09/23 10/09/23 History 7-10) Allergies Allergy/AdvReac Type Severity Reaction Status Date / Time No Known Drug Allergies Allergy Verified 10/08/23 15:14 Review of Systems Review of Systems ROS: Yes All systems reviewed with the patient and are negative except as otherwise documented Exam Vital Signs (past 8 hours): - 10/09/23 10:30 10/09/23 11:00 10/09/23 11:01 Temperature Pulse Rate 99 H 99 H Respiratory Rate 23 24 Blood Pressure 126/71 Pulse Oximetry 95 96 Oxygen Delivery Method 10/09/23 11:01 10/09/23 11:30 10/09/23 12:00 Temperature Pulse Rate 99 H 101 H Respiratory Rate 27 H 27 H Blood Pressure 143/62 H Pulse Oximetry 97 96 Oxygen Delivery Method 10/09/23 12:00 10/09/23 12:27 10/09/23 12:30 Temperature Pulse Rate 101 H 113 H Respiratory Rate 33 H 25 H Blood Pressure Pulse Oximetry 93 94 Oxygen Delivery Method Room Air 10/09/23 13:00 10/09/23 13:00 10/09/23 13:30 Temperature Pulse Rate 116 H 104 H Respiratory Rate 41 H 29 H Blood Pressure 132/63 Pulse Oximetry 94 94 Oxygen Delivery Method 10/09/23 14:00 10/09/23 14:01 10/09/23 14:01 Temperature Pulse Rate 108 H 109 H Respiratory Rate 30 H 30 H Blood Pressure 105/51 L Pulse Oximetry 94 94 Oxygen Delivery Method 10/09/23 14:30 10/09/23 15:00 10/09/23 15:00 Temperature Pulse Rate 107 H 109 H Respiratory Rate 29 H 31 H Blood Pressure 111/55 L Pulse Oximetry 91 93 Oxygen Delivery Method 10/09/23 15:30 10/09/23 16:00 10/09/23 16:00 Temperature Pulse Rate 113 H 111 H Respiratory Rate 34 H 32 H Blood Pressure 116/59 L Pulse Oximetry 93 90 L Oxygen Delivery Method 10/09/23 16:30 10/09/23 17:00 10/09/23 17:14 Temperature 100.9 F H 100.9 F H Pulse Rate 128 H 125 H Respiratory Rate 44 H 36 H Blood Pressure Pulse Oximetry 92 91 Oxygen Delivery Method 10/09/23 17:30 10/09/23 18:00 10/09/23 18:01 Temperature Pulse Rate 127 H 128 H Respiratory Rate 23 37 H Blood Pressure 142/69 H Pulse Oximetry 93 94 Oxygen Delivery Method 10/09/23 18:01 Temperature Pulse Rate 123 H Respiratory Rate 32 H Blood Pressure Pulse Oximetry 92 Oxygen Delivery Method Oxygen Delivery Method Room Air Oxygen Flow Rate 1 Narrative Exam Narrative: The patient is a well-developed, overly nourished male lying in bed and intermittently in distress due to bladder spasm waves. Three-way catheter is indwelling with light maroon/brown outflow and no clot visualized. Objective Labs 10/09/23 09:51 10/09/23 09:51 Labs: Laboratory Results - last 24 hr 10/08/23 10/08/23 10/09/23 21:11 23:41 01:55 WBC 13.1 H RBC 3.61 L Hgb 11.9 L 10.0 L Hct 35.6 L 30.5 L MCV 98.5 MCH 32.8 MCHC 33.3 RDW 14.4 Plt Count 290 Neut % (Auto) 70.6 Lymph % (Auto) 16.7 L [place] % (Auto) 9.9 Eos % (Auto) 2.4 Baso % (Auto) 0.4 Neut # (Auto) 9300 H Lymph # (Auto) 2200 [place] # (Auto) 1300 H Eos # (Auto) 300 Baso # (Auto) 100 PT 12.5 INR 1.1 Sodium 135 L Potassium 3.8 Chloride 102 Carbon Dioxide 28 BUN 18 Creatinine 0.65 L Estimated GFR > 60 BUN/Creatinine Ratio 27.7 H Glucose 255 H Calcium 9.9 Total Bilirubin 0.6 AST 17 ALT 12 Alkaline Phosphatase 74 Total Protein 6.7 Albumin 3.5 Globulin 3.2 Albumin/Globulin Ratio 1.1 Nasal Screen MRSA (PCR) Not detected Blood Type O Positive Antibody Screen Negative 10/09/23 09:51 WBC 11.1 H RBC 3.21 L Hgb 10.5 L Hct 32.0 L MCV 99.7 MCH 32.8 MCHC 32.9 RDW 14.3 Plt Count 253 Neut % (Auto) 75.2 H Lymph % (Auto) 11.1 L [place] % (Auto) 10.8 Eos % (Auto) 2.6 Baso % (Auto) 0.3 Neut # (Auto) 8300 H Lymph # (Auto) 1200 [place] # (Auto) 1200 H Eos # (Auto) 300 Baso # (Auto) 0 PT INR Sodium 135 L Potassium 4.0 Chloride 102 Carbon Dioxide 31 BUN 15 Creatinine 0.57 L Estimated GFR > 60 BUN/Creatinine Ratio 26.3 H Glucose 170 H Calcium 9.7 Total Bilirubin AST ALT Alkaline Phosphatase Total Protein Albumin Globulin Albumin/Globulin Ratio Nasal Screen MRSA (PCR) Blood Type Antibody Screen [facility] Medical History (Updated 10/09/23 @ 18:27 by Anirudh Garcia MD) Urinary catheter dysfunction Urinary retention Ni catheter in place (2023) Edema Osteoarthritis Uses self-applied continuous glucose monitoring device Diabetes (~2022) Kidney stones Enlarged prostate HLD (hyperlipidemia) Seasonal allergies VILLA on CPAP Surgical History Hx of laminectomy History of total left knee replacement History of total right knee replacement H/O vasectomy Hx of hernia repair Social History household members: none other: He lives alone on [facility]. Tobacco & Substance Use Smoking Status: Former smoker alcohol intake: never Assessment & Plan Assessment and plan (1) Urinary retention: Status: Acute (2) Gross hematuria: Status: Acute (3) Urinary catheter dysfunction: Qualifiers: Encounter type: subsequent encounter Qualified Code(s): T83.018D - Breakdown (mechanical) of other urinary catheter, subsequent encounter Status: Acute Plan 1. Continue three-way continuous normal saline CBI. 2. Hand irrigate the OUTFLOW PORT as needed for catheter patency. 3. Change to Y connector system and hang to bags high on a bedside stand, not post connected to hospital bed. 4. Manage bladder spasm that needed with low-dose narcotic analgesic. May add anticholinergic of choice such as Ditropan XL 5-10 mg p.o. daily. 5. Recommend orthopedic surgeon consultation regarding limitations and guidelines regarding new hip arthroplasty and need for lithotomy stirrup positioning in near future to address bladder outlet obstruction due to large prostate. 6. Consider Infectious Disease consultation regarding possible need for ongoing intravenous or oral antibiotic therapy per final culture and sensitivity until bladder outlet obstruction due to large prostate can be undertaken.
[2023-10-09] MEDS: cefTRIAXone 2,000 MG in SODIUM CHLORIDE 0.9% 100 ML 200 MG IV (19:20)
[2023-10-09] MEDS: TAMSULOSIN 0.4 MG CAPSULE PO (20:25)
[2023-10-09] MEDS: FINASTERIDE 5 MG TABLET PO (20:25)
[2023-10-10] VITALS (43 sets, daily range): BP systolic 109–163; BP diastolic 55–72; PULSE 87–122; RESP 19–39; TEMP 36.7–37.1; O2SAT 92–99
--- NOTE | 2023-10-10 07:52 | PM.PN.1 ---
Subjective Subjective Interval history: Doing well this morning. He was on irrigation overnight and had to be manually irrigated twice. No hematuria. No pain. His fever did resolve. He was started on antibiotics yesterday. Exam Vital Signs (past 8 hours): - 10/10/23 00:00 10/10/23 00:00 10/10/23 00:30 Temperature Pulse Rate 118 H 121 H Respiratory Rate 23 37 H Blood Pressure 149/70 H Pulse Oximetry 10/10/23 01:00 10/10/23 01:00 10/10/23 01:30 Temperature Pulse Rate 122 H 119 H Respiratory Rate 32 H 39 H Blood Pressure 144/63 H Pulse Oximetry 10/10/23 02:00 10/10/23 02:00 10/10/23 02:30 Temperature Pulse Rate 121 H 115 H Respiratory Rate 32 H 32 H Blood Pressure 163/72 H Pulse Oximetry 10/10/23 03:00 10/10/23 03:00 10/10/23 03:30 Temperature Pulse Rate 114 H 113 H Respiratory Rate 30 H 33 H Blood Pressure 145/68 H Pulse Oximetry 96 95 10/10/23 04:00 10/10/23 04:00 10/10/23 04:00 Temperature 98.8 F Pulse Rate 114 H Respiratory Rate 38 H Blood Pressure 137/65 Pulse Oximetry 95 10/10/23 04:30 10/10/23 05:00 10/10/23 05:00 Temperature Pulse Rate 115 H 115 H Respiratory Rate 34 H 37 H Blood Pressure 130/60 Pulse Oximetry 94 95 10/10/23 05:30 10/10/23 06:00 10/10/23 06:00 Temperature Pulse Rate 110 H 113 H Respiratory Rate 30 H 34 H Blood Pressure 120/56 L Pulse Oximetry 95 94 Oxygen Delivery Method Nasal Cannula Oxygen Flow Rate 1.5 Narrative Exam Narrative: NAD, alert and oriented. Fluent speech. Lungs are clear, normal rate and effort. Heart is regular, no murmur gallop or rub. Abdomen is soft, non distended. Extremities are free of edema. Ni catheter with 3 way, and CBI. Objective Labs 10/09/23 09:51 10/09/23 09:51 Labs: Laboratory Results - last 24 hr 10/09/23 09:51 WBC 11.1 H RBC 3.21 L Hgb 10.5 L Hct 32.0 L MCV 99.7 MCH 32.8 MCHC 32.9 RDW 14.3 Plt Count 253 Neut % (Auto) 75.2 H Lymph % (Auto) 11.1 L [place] % (Auto) 10.8 Eos % (Auto) 2.6 Baso % (Auto) 0.3 Neut # (Auto) 8300 H Lymph # (Auto) 1200 [place] # (Auto) 1200 H Eos # (Auto) 300 Baso # (Auto) 0 Sodium 135 L Potassium 4.0 Chloride 102 Carbon Dioxide 31 BUN 15 Creatinine 0.57 L Estimated GFR > 60 BUN/Creatinine Ratio 26.3 H Glucose 170 H Calcium 9.7 PFSH Medical History Urinary catheter dysfunction Urinary retention Ni catheter in place (2023) Edema Osteoarthritis Uses self-applied continuous glucose monitoring device Diabetes (~2022) Kidney stones Enlarged prostate HLD (hyperlipidemia) Seasonal allergies VILLA on CPAP Surgical History Hx of laminectomy History of total left knee replacement History of total right knee replacement H/O vasectomy Hx of hernia repair Social History household members: none other: He lives alone on [facility]. Smoking Status: Former smoker alcohol intake: never Assessment & Plan Assessment & Plan narrative: 1. Hypotension, new and iresolved. 2. Gross hematuria, present on admission and active. 3. UTI and fever (Klebsiella), present on admission and active. 4. Obstructed Ni catheter, present on admission and at 5. BPH, present on admission and active. 6. Hypertension, not present on admission are active. 7. Blood loss anemia, present on admission and stable. 9. VILLA, present on admission and stable. 10. Gout, present on admission and stable Plan: -discussed with Urology -continue Abx -continue irrigation of bladder -continue current medications. -will discuss with Orthopedics. Urology would like to know if he can be position for a urologic procedure. Time Spent With Patient Time with patient: 30 to 49 minutes with 50% spent counseling/coordinating care
[2023-10-10] MEDS: INSULIN LISPRO 100 UNIT/ML 3ML VIAL SUBCUT ×3 (08:00→16:53)
[2023-10-10] MEDS: METFORMIN HCL 500 MG TABLET PO (08:05)
[2023-10-10] MEDS: allopurinoL 100 MG TABLET 300 MG PO (09:31)
[2023-10-10] MEDS: LORATADINE 10 MG TABLET PO (09:32)
[2023-10-10] MEDS: INSULIN GLARGINE 100 UNIT/ML 3ML PEN 29 UNIT SUBCUT (09:32)
--- NOTE | 2023-10-10 11:20 | CM.DPNOTE ---
Addendum entered by CIPRIANO Nicholas 10/10/23 11:57: ADD: Spoke with Jessica at [facility] who reports they have multiple admissions over the next few days and so would likely not be able to re-admit patient until Saturday or Saturday. Provided brief medical update. Original Note: DCP Cont Patient discussed in morning rounds. Patient remains on continuous bladder irrigation. Urology has been consulted; patient is likely to need a urology procedure if he can tolerate the position required on the table; patient is s/p LTHA in August. Patient expected to be admitted an additional 24-48 hrs. CM team following. Plan continues to be return to [facility]R when medically cleared to do so. JOSE DAVID
--- NOTE | 2023-10-10 11:24 | DIET.CONS2 ---
Dietary Inpatient Consultation Note Admission Date: 10/09/2023 00:46 83 y M presented with hematuria and blocked Ni catheter. Nutrition screened for low MNA score. Chart reviewed, pt nutritionally adequate. No weight loss noted. 75-100% PO intakes. Will continue to monitor PO intakes, f/u prn. Diet: 10/09/23 Breakfast Carbohydrate Consistent Diet Diet Modifications: Carbohydrate level: Medium (3 CHO) Reflex DM orders: No Food Texture: Level 7 - Regular Liquid Consistency: Level 0 - Thin Nutrition Percent Meal Consumed 100% 10/10/23 09:00 Percent Meal Consumed 75% 10/09/23 12:50 Electronically Signed by: Kristin Myers 10/10/23 11:24 Clinical Dietitian [address] [address]
[2023-10-10] MEDS: cefTRIAXone 2,000 MG in SODIUM CHLORIDE 0.9% 100 ML 200 MG IV (17:00)
[2023-10-10] MEDS: ACETAMINOPHEN 325 MG TABLET 650 MG PO (17:46)
[2023-10-10] MEDS: TAMSULOSIN 0.4 MG CAPSULE PO (21:05)
[2023-10-10] MEDS: FINASTERIDE 5 MG TABLET PO (21:05)
[2023-10-11] VITALS (11 sets, daily range): BP systolic 103–133; BP diastolic 55–62; PULSE 83–104; RESP 19–32; TEMP 36.3–36.6; O2SAT 92–97
--- NOTE | 2023-10-11 07:36 | PM.PN.1 ---
Subjective Subjective Interval history: Exam Vital Signs (past 8 hours): - 10/11/23 00:00 10/11/23 00:00 10/11/23 02:00 Temperature 97.4 F L Pulse Rate 88 83 Respiratory Rate 23 24 Blood Pressure 123/62 Pulse Oximetry 92 97 Oxygen Flow Rate 1 10/11/23 02:00 10/11/23 04:00 10/11/23 04:00 Temperature 97.3 F L Pulse Rate 99 H Respiratory Rate 24 Blood Pressure 129/61 117/55 L Pulse Oximetry 94 Oxygen Flow Rate 1 1 10/11/23 06:00 10/11/23 06:00 Temperature Pulse Rate 86 Respiratory Rate 24 Blood Pressure 111/59 L Pulse Oximetry 93 Oxygen Flow Rate 1 Fraction of Inspired Oxygen 28 SaO2/FiO2 Ratio 328 Oxygen Delivery Method CPAP Oxygen Flow Rate 1 Narrative Exam Narrative: NAD, alert and oriented. Fluent speech. Lungs are clear, normal rate and effort. Heart is regular, no murmur gallop or rub. Abdomen is soft, non distended. Extremities are free of edema. Objective Labs 10/09/23 09:51 10/09/23 09:51 PFSH Medical History Urinary catheter dysfunction Urinary retention Ni catheter in place (2023) Edema Osteoarthritis Uses self-applied continuous glucose monitoring device Diabetes (~2022) Kidney stones Enlarged prostate HLD (hyperlipidemia) Seasonal allergies VILLA on CPAP Surgical History Hx of laminectomy History of total left knee replacement History of total right knee replacement H/O vasectomy Hx of hernia repair Social History household members: none other: He lives alone on [facility]. Smoking Status: Former smoker alcohol intake: never Assessment & Plan Assessment & Plan narrative: [address] [address] Progress Note Patient: Garrett Mathews MR#: [id number] : 1940 Acct:[id number] Age/Sex: 83 / M Admit Date: 10/09/23 Provider: Garcia Velazco MD Subjective Subjective Interval history: Doing well this morning. He was on irrigation overnight and had to be manually irrigated twice. No hematuria. No pain. His fever did resolve. He was started on antibiotics yesterday. Exam Vital Signs (past 8 hours): - 10/10/2399:00 10/10/2399:00 10/10/2399:30 Temperature Pulse Rate 118 H 121 H Respiratory Rate 23 37 H Blood Pressure 149/70 H Pulse Oximetry 10/09/2400:00 10/09/2400:00 10/09/2400:30 Temperature Pulse Rate 122 H 119 H Respiratory Rate 32 H 39 H Blood Pressure 144/63 H Pulse Oximetry 10/09/2401:00 10/09/2401:00 10/09/2401:30 Temperature Pulse Rate 121 H 115 H Respiratory Rate 32 H 32 H Blood Pressure 163/72 H Pulse Oximetry 10/09/2402:00 10/09/2402:00 10/09/2402:30 Temperature Pulse Rate 114 H 113 H Respiratory Rate 30 H 33 H Blood Pressure 145/68 H Pulse Oximetry 96 95 10/10/2403:00 10/10/2403:00 10/10/2403:00 Temperature 98.8 F Pulse Rate 114 H Respiratory Rate 38 H Blood Pressure 137/65 Pulse Oximetry 95 10/10/2403:30 10/09/2404:00 10/09/2404:00 Temperature Pulse Rate 115 H 115 H Respiratory Rate 34 H 37 H Blood Pressure 130/60 Pulse Oximetry 94 95 10/09/2404:30 10/09/2405:00 10/09/2405:00 Temperature Pulse Rate 110 H 113 H Respiratory Rate 30 H 34 H Blood Pressure 120/56 L Pulse Oximetry 95 94 Oxygen Delivery Method Nasal Cannula Oxygen Flow Rate 1.5 Narrative Exam Narrative: NAD, alert and oriented. Fluent speech. Lungs are clear, normal rate and effort. Heart is regular, no murmur gallop or rub. Abdomen is soft, non distended. Extremities are free of edema. Ni catheter with 3 way, and CBI. Objective Labs 10/09/23 09:51 10/09/23 09:51 Labs: Laboratory Results - last 24 hr 10/09/23 09:51 WBC 11.1 H RBC 3.21 L Hgb 10.5 L Hct 32.0 L MCV 99.7 MCH 32.8 MCHC 32.9 RDW 14.3 Plt Count 253 Neut % (Auto) 75.2 H Lymph % (Auto) 11.1 L [place] % (Auto) 10.8 Eos % (Auto) 2.6 Baso % (Auto) 0.3 Neut # (Auto) 8300 H Lymph # (Auto) 1200 [place] # (Auto) 1200 H Eos # (Auto) 300 Baso # (Auto) 0 Sodium 135 L Potassium 4.0 Chloride 102 Carbon Dioxide 31 BUN 15 Creatinine 0.57 L Estimated GFR > 60 BUN/Creatinine Ratio 26.3 H Glucose 170 H Calcium 9.7 PFSH Medical History Urinary catheter dysfunction Urinary retention Ni catheter in place (2023) Edema Osteoarthritis Uses self-applied continuous glucose monitoring device Diabetes (~2022) Kidney stones Enlarged prostate HLD (hyperlipidemia) Seasonal allergies VILLA on CPAP Surgical History Hx of laminectomy History of total left knee replacement History of total right knee replacement H/O vasectomy Hx of hernia repair Social History household members: none other: He lives alone on [facility]. Smoking Status: Former smoker alcohol intake: never Assessment & Plan Assessment & Plan narrative: 1. Hypotension, new and iresolved. 2. Gross hematuria, present on admission and active. 3. UTI and fever (Klebsiella), present on admission and active. 4. Obstructed Ni catheter, present on admission and at 5. BPH, present on admission and active. 6. Hypertension, not present on admission are active. 7. Blood loss anemia, present on admission and stable. 9. VILLA, present on admission and stable. 10. Gout, present on admission and stable Plan: -discussed with Urology, no immediate interventions. -continue Abx (7-10 days) -discontinue irrigation of bladder, consider TXA dose. -continue current medications.
[2023-10-11] MEDS: LORATADINE 10 MG TABLET PO (08:30)
[2023-10-11] MEDS: allopurinoL 100 MG TABLET 300 MG PO (08:30)
[2023-10-11] MEDS: METFORMIN HCL 500 MG TABLET PO (08:34)
[2023-10-11] MEDS: INSULIN GLARGINE 100 UNIT/ML 3ML PEN 29 UNIT SUBCUT (08:35)
[2023-10-11] MEDS: INSULIN LISPRO 100 UNIT/ML 3ML VIAL SUBCUT ×2 (08:36→11:45)
--- NOTE | 2023-10-11 10:44 | P.PN_ITS ---
Subjective Subjective Interval history: He has been doing well overnight. No fevers and no pain. No difficulty with dyspnea. Discussed with urology yesterday, no indication for Procedure. Recommend stopping irrigation and seeing if the hematuria has improved. Discussed with ortho, they note a left heel eschar which will be evaluated for the need for debridement within the next 24 hours. Exam Vital Signs (past 8 hours): - 10/11/23 04:00 10/11/23 04:00 10/11/23 06:00 Temperature 97.3 F L Pulse Rate 99 H 86 Respiratory Rate 24 24 Blood Pressure 117/55 L Pulse Oximetry 94 93 Oxygen Flow Rate 1 10/11/23 06:00 10/11/23 07:52 10/11/23 07:52 Temperature Pulse Rate 93 H Respiratory Rate 25 H Blood Pressure 111/59 L 110/56 L Pulse Oximetry 96 Oxygen Flow Rate 1 10/11/23 08:00 10/11/23 08:00 10/11/23 08:34 Temperature Pulse Rate 86 Respiratory Rate 25 H 25 H Blood Pressure 103/57 L Pulse Oximetry 93 Oxygen Flow Rate 10/11/23 10:41 Temperature Pulse Rate Respiratory Rate 24 Blood Pressure Pulse Oximetry Oxygen Flow Rate Fraction of Inspired Oxygen 28 SaO2/FiO2 Ratio 328 Oxygen Delivery Method CPAP Oxygen Flow Rate 1 Narrative Exam Narrative: NAD, alert and oriented. Fluent speech. Lungs are clear, normal rate and effort. Heart is regular, no murmur gallop or rub. Abdomen is soft, non distended. Extremities are free of edema. Left heel ulcer with black eschar. Foul-smelling. Objective Labs 10/09/23 09:51 10/09/23 09:51 [facility] Medical History Urinary catheter dysfunction Urinary retention Ni catheter in place (2023) Edema Osteoarthritis Uses self-applied continuous glucose monitoring device Diabetes (~2022) Kidney stones Enlarged prostate HLD (hyperlipidemia) Seasonal allergies VILLA on CPAP Surgical History Hx of laminectomy History of total left knee replacement History of total right knee replacement H/O vasectomy Hx of hernia repair Social History household members: none other: He lives alone on [facility]. Smoking Status: Former smoker alcohol intake: never Assessment & Plan Assessment & Plan narrative: 1. Hypotension, new and resolved. 2. Gross hematuria, present on admission and improved. 3. UTI and fever (Klebsiella), present on admission and improving. 4. Obstructed Ni catheter, present on admission and resolved (blood clots). 5. BPH, present on admission and active. 6. Hypertension, not present on admission are active. 7. Blood loss anemia, present on admission and stable. 9. VILLA, present on admission and stable. 10. Gout, present on admission and stable 11. Heel ulcer (2 weeks), present on admission and active. Plan: -discussed with Urology, no procedure -continue Abx, ceftriaxone -discontinue irrigation of bladder -continue current other medications. -evaluation of heel ulcer for need of debridement.
--- NOTE | 2023-10-11 10:53 | PC.NURSE ---
Day shift: Dressing on left heal changed by this data analyst report writer and RN student. Changed as directed by Jose ROLLE.
[2023-10-11] MEDS: ASPIRIN 81 MG CHEW TAB PO ×2 (11:45→21:29)
--- NOTE | 2023-10-11 11:57 | CM.DPNOTE ---
DCP Cont Discharge anticipated tomorrow. According to discussion with Dr Velazco in multidisciplinary rounds, no urology procedure indicated and stopping irrigation today to see if the hematuria has improved. Updated Jessica at [facility]. Beds are full this weekend and admissions have been steady. Jessica recommends discussing patient's admission with [facility] tomorrow AM JW
[2023-10-11] MEDS: ACETAMINOPHEN 325 MG TABLET 650 MG PO ×2 (14:08→21:57)
--- NOTE | 2023-10-11 15:33 | DI.RAD.S_ITS ---
PROCEDURE: XR FOOT LT MIN 3V INDICATIONS: left heel wound TECHNIQUE: 3 views of the foot were acquired. COMPARISON: None. FINDINGS: Bones: No fractures or dislocations. No suspicious bony lesions. Osteoarthritis most pronounced the 1st MTP joint and present to a lesser degree at the midfoot and hindfoot. Soft tissues: No tibiotalar joint effusion. Achilles tendon appears normal. IMPRESSION: No acute bony abnormality. No suspicion for foreign body or osteomyelitis. Moderate degenerative change at the midfoot and hindfoot. Moderately severe osteoarthritis at the 1st MTP joint. Dictated by: Jose Javier M.D. on 10/11/2023 at 16:28 Approved by: Jose Javier M.D. on 10/11/2023 at 16:36
[2023-10-11] MEDS: cefTRIAXone 2,000 MG in SODIUM CHLORIDE 0.9% 100 ML 200 MG IV (17:01)
[2023-10-11] MEDS: FINASTERIDE 5 MG TABLET PO (21:28)
[2023-10-11] MEDS: TAMSULOSIN 0.4 MG CAPSULE PO (21:29)
[2023-10-12 04:00] VITALS: BP 112/63; PULSE 78; RESP 16; TEMP 35.9; O2SAT 95
[2023-10-12 08:00] VITALS: BP 122/64; PULSE 80; RESP 16; TEMP 36.5; O2SAT 94
[2023-10-12] MEDS: METFORMIN HCL 500 MG TABLET PO (08:32)
[2023-10-12] MEDS: LORATADINE 10 MG TABLET PO (08:32)
[2023-10-12] MEDS: ASPIRIN 81 MG CHEW TAB PO ×2 (08:32→21:19)
[2023-10-12] MEDS: INSULIN LISPRO 100 UNIT/ML 3ML VIAL SUBCUT ×3 (08:33→16:57)
[2023-10-12] MEDS: allopurinoL 100 MG TABLET 300 MG PO (08:33)
[2023-10-12] MEDS: INSULIN GLARGINE 100 UNIT/ML 3ML PEN 29 UNIT SUBCUT (08:34)
--- NOTE | 2023-10-12 09:09 | P.PN_ITS ---
Subjective Subjective Interval history: He is doing well this morning. He slept well, no dyspnea or pain. Orthopedics is going to look at his left heel today. There has been a wound with eschar there for about 3 weeks. He has been receiving wound care weekly at [facility]. He did have a large bowel movement yesterday. His bladder irrigation was turned off yesterday afternoon and he has clear urine overnight. He denies any bladder spasms. Exam Vital Signs (past 8 hours): - 10/12/23 04:00 10/12/23 08:00 Temperature 96.6 F L 97.7 F Pulse Rate 78 80 Respiratory Rate 16 16 Blood Pressure 112/63 122/64 Pulse Oximetry 95 94 Oxygen Flow Rate 2 0 Fraction of Inspired Oxygen 28 SaO2/FiO2 Ratio 328 Oxygen Delivery Method CPAP Oxygen Flow Rate 0 Narrative Exam Narrative: NAD, alert and oriented. Fluent speech. Lungs are clear, normal rate and effort. Heart is regular, no murmur gallop or rub. Abdomen is soft, non distended. Extremities are free of edema. Ni with clear urine. Left heel wrapped. Objective Labs 10/09/23 09:51 10/09/23 09:51 [facility] Medical History Urinary catheter dysfunction Urinary retention Ni catheter in place (2023) Edema Osteoarthritis Uses self-applied continuous glucose monitoring device Diabetes (~2022) Kidney stones Enlarged prostate HLD (hyperlipidemia) Seasonal allergies IVLLA on CPAP Surgical History Hx of laminectomy History of total left knee replacement History of total right knee replacement H/O vasectomy Hx of hernia repair Social History household members: none other: He lives alone on [facility]. Smoking Status: Former smoker alcohol intake: never Assessment & Plan Assessment & Plan narrative: 1. Hypotension, new and resolved. 2. Gross hematuria, present on admission and improved. 3. UTI and fever (Klebsiella), present on admission and improving. 4. Obstructed Ni catheter, present on admission and resolved (blood clots). 5. BPH, present on admission and active. 6. Hypertension, not present on admission are active. 7. Blood loss anemia, present on admission and stable. 9. VILLA, present on admission and stable. 10. Gout, present on admission and stable 11. Heel ulcer (2 weeks), present on admission and active. Plan: -discussed with Urology, no procedure -continue Abx, ceftriaxone -discontinued irrigation of bladder (10/10) -continue current other medications. -evaluation of heel ulcer for need of debridement. Anticipate return to [facility] facility, [facility], in 1-2 days pending orthopedic opinion on the left heel wound.
--- NOTE | 2023-10-12 10:58 | P.PN_ITS ---
Subjective Subjective Interval history: Garrett is a pleasant 83 year old male who is s/p Left total hip arthroplasty posterior approach by Dr. Contreras on 09/05/23 discharged to SNF and now re- admitted d/t hematuria. Orthopedics was consulted for evaluation of a newly developed left heel pressure ulcer with eschar. Patient has a new onset left foot drop s/p left total hip and was to be fitted with an AFO however this has not happened d/t the development of a left heel pressure ulcer. Patient states he first noticed the ulcer forming about 2 weeks after his total hip surgery. He denies any significant left heel pain at rest, states his pain is controlled with Tylenol as needed. 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 He has been getting weekly wound care at [facility] and dressing changes from the SNF nursing staff every other day. Left foot X-Rays ordered yesterday, no evidence of osteomyelitis seen on imaging. No foreign body. Denies fever, chills, chest pain, SOB, nausea, vomiting. Exam Vital Signs (past 8 hours): - 10/12/23 04:00 10/12/23 08:00 Temperature 96.6 F L 97.7 F Pulse Rate 78 80 Respiratory Rate 16 16 Blood Pressure 112/63 122/64 Pulse Oximetry 95 94 Oxygen Flow Rate 2 0 Fraction of Inspired Oxygen 28 SaO2/FiO2 Ratio 328 Oxygen Delivery Method CPAP Oxygen Flow Rate 0 Narrative Exam Narrative: Lying comfortably in bed during interview today. SCDs on and functioning. Resp Effort & Inspection: normal respiratory effort and able to speak in complete sentences Cardio Rate: regular rate Skin Other: Well healing left posterior hip surgical incision site, no erythema or drainage. Left heel pressure ulcer with eschar, pink skin surrounding the ulcer. Xerform in place over the heel ulcer. Neuro General: patient alert, patient awake and patient oriented x3 Other: No sensation in distal toes, sensation intact around the mid-foot and up. 0/5 PF, 1/5 DF left foot. 5/5 DF, PF right foot. Extrem Other: Calves soft and non-tender bilaterally. SCDs on and functioning. Psych Appearance: grossly normal Mental Status: mental status grossly normal Speech and Movement: speech and movement normal Objective Labs 10/09/23 09:51 10/09/23 09:51 [facility] Medical History Urinary catheter dysfunction Urinary retention Ni catheter in place (2023) Edema Osteoarthritis Uses self-applied continuous glucose monitoring device Diabetes (~2022) Kidney stones Enlarged prostate HLD (hyperlipidemia) Seasonal allergies VILLA on CPAP Surgical History Hx of laminectomy History of total left knee replacement History of total right knee replacement H/O vasectomy Hx of hernia repair Social History household members: none other: He lives alone on [facility]. Smoking Status: Former smoker alcohol intake: never Assessment & Plan Assessment and plan (1) Pressure ulcer, heel, left, unstageable: Status: Acute (2) S/P total left hip arthroplasty: Status: Acute Plan The left heel was evaluated today and re-dressed with xeroform, Allevyn and gauze bandage roll. The foot was placed in a floating position. X-Rays were reviewed with no suspicious findings at this time. Plan to discharge back to SNF per medicine/urology once appropriate. He will need outpatient wound care, I have sent a referral to wound care for left heel pressure ulcer. Patient will need his heel to be floated AT ALL TIMES. A right AFO brace needs to be fitted for patient and specially made so it does not add any pressure to the heel, the AFO brace should be used to aid in patient ambulation, PT/recovery s/p L REILLY. Continue to maintain posterior hip precautions, no bending past 90 degrees at the left hip, no internal rotation, no crossing your legs at the knees.
--- NOTE | 2023-10-12 14:09 | CM.DPNOTE ---
DCP Cont Patient discussed in morning rounds. Ortho team consulted, Ortho SARIAH Blanton's report indicates foot X rays were reviewed and no suspicion of Osteo at this time. SARIAH Blanton has placed referral for patient to be seen at outpatient wound care clinic. In addition, note indicates patient's heel should be floated at all times. Placed call to Ivory at [facility]; discussed patient and that he will likely be discharged Saturday. Ivory anticipates Saturday working for admission and requests call from [facility] Saturday morning. No PASRR needed for return. JOSE DAVID
--- NOTE | 2023-10-12 14:20 | PT.IIE ---
Current Diagnoses Acute posthemorrhagic anemia (10/09/23) Pressure ulcer of left heel, unstageable (10/09/23) Gout, unspecified (10/09/23) Gross hematuria (10/09/23) Retention of urine, unspecified (10/09/23) Breakdown (mechanical) of other urinary catheter, subsequent encounter (10/09/23) Other mechanical complication of indwelling urethral catheter, initial encounter (10/09/23) Presence of left artificial hip joint (10/09/23) Surgical History (Last Reviewed 10/10/23 @ 07:53 by Garcia Velazco MD) H/O vasectomy History of total left knee replacement History of total right knee replacement Hx of hernia repair Hx of laminectomy Medical History (Last Reviewed 10/10/23 @ 07:53 by Garcia Velazco MD) Diabetes (~2022) Edema Enlarged prostate Ni catheter in place (2023) HLD (hyperlipidemia) Kidney stones VILLA on CPAP Osteoarthritis Seasonal allergies Urinary catheter dysfunction Urinary retention Uses self-applied continuous glucose monitoring device Physical Therapy Inpatient Evaluation/Re-Eval M1 PT/OT-IP Prior Functional Status Start: 10/12/23 16:47 Freq: NEEDED Status: Active Protocol: Document 10/12/23 14:20 AB (Rec: 10/12/23 17:18 AB [id number]) Medical Review Prior Functional Status Medical History Reviewed Yes Communication able to make needs known Mobility and Gait pt s/p L REILLY posterior pt stated that he was mod I with use of FWW prior to REILLY. pt d/c to SNF 09/08/23. pt stated the he was initially able to walk at [facility] using a FWW but he declined in function due to his diarrhea and afterwards the urinary retention. stated that he initially has contipation and was given milk of magnesia 10/01 and since then has had diarrhea where in he was not able to control his BM and that he does not get out of the bed and was only doing PT/OT in bed. Social History Household Members none Living Arrangements House Number of Floors (Floors) Two Floors Number of Stairs To Enter/Railing? pt stays on main level of the house 2 steps without rails to enter shower in 2nd level of the house with 17 steps L rail ascending and R sided ledge Home Environment Standard Height Toilet,Walk in Shower,Built-In Shower Seat Home Equipment Hand Held Shower,Grab Bars In Shower Additional Social History Comment pt has an adjustable bed and a chair recliner M2 PT-IP Current Condition Start: 10/12/23 16:47 Freq: NEEDED Status: Active Protocol: Document 10/12/23 14:20 AB (Rec: 10/12/23 17:18 AB [id number]) Physical Therapy Current Condition Current Condition Evaluation Date 10/12/23 Treatment Diagnosis UTI; L heel wound; s/p L REILLY posterior; difficulty in walking Onset Date 10/08/23 M3 PT-IP Subjective Start: 10/12/23 16:47 Freq: NEEDED Status: Active Protocol: Document 10/12/23 14:20 AB (Rec: 10/12/23 17:18 AB [id number]) Subjective Physical Therapy Visit Type Type Initial Evaluation Visit Start Time 14:20 Visit Stop Time 14:50 Number of HEDIS ABSTRACTOR Visits 0 Physical Therapy Visit Comments Patient Comments agreeable to do PT but stated that he had uncontrolled diarrhea yesterday and is concerned about getting up M4 PT-IP Mobility and Gait Start: 10/12/23 16:47 Freq: NEEDED Status: Active Protocol: Document 10/12/23 14:20 AB (Rec: 10/12/23 17:18 AB [id number]) PT-Bed Mobility Assessment Supine to Sit Supine to Sit Maximum Assistance,1 Person Assistance,2 Person Assistance Sit to Supine Sit to Supine Maximum Assistance,1 Person Assistance,2 Person Assistance Scooting Scooting to Edge of Bed Maximum Assistance Scooting Up and Down in Bed Maximum Assistance PT-Transfer Assessment Sit to and From Stand Sit to and from Stand Maximum Assistance,2 Person Assistance,Use of Upper Extremities Equipment Transfer Assistive Device Gait Belt,Front Wheeled Walker Orthotic/Prosthetic Devices or Brace: No Comments Mobility Comments pt supine in bed and agreeable to do PT but concerned about having another uncontrolled diarrhea when he gets up. stated that he had an episode of uncontrolled diarrhea when he got up with nursing staff yesterday. pt was evaluated by PT after he had his L ERILLY last 09/05/23 and pt was d/c'd to [facility] afterwards. obtained PLOF and home set from pt. reviewed L REILLY posterior precautions with pt and pt recalled 2/3. also informed pt regarding NWB on LLE per doctor's order due to L heel wound. Pt understood. pt completed supine to sit max A x 1-2 and max cues with HOB elevated ~ 15 deg. pt able to sit on EOB SBA. pt completed sit to stand max A x 2 and max cues. cued for NWB on LLE. pt able to stand max A x 2 and needs assistance to maintain NWB on LLE. pt then c/o BM starting to drip and wants to sit down. max A x 1-2 for controlled descent. pt requested to just go back to bed . offered bedside commode use but pt stated that it's too late for it and just wants to go back to bed and needs to be cleaned up. pt scooted towards HOB max A and max cues . completed sit to supine max A 1-2 and max cues. positioned pt in bed. Left pt with NAC and nurse to assist pt for hygiene care and brief change. nurse aware of pt's diarrhea issues for a few days now. Ortho PA talked to PT regarding LLE AFO. informed PA that pt has LLE AFO order last 09/07/23 after L REILLY but unable to provide due to AFO not available over the the weekend and will need a few days to order per [facility]. No other prothetic/ orthotic company was open during the weekend. Pt then d /c'd to SNF the next day and unable to provide AFO. pt d/c 'd to SNF but apparently AFO order was not followed up on. PA initially stated that pt needs a custom made AFO per Dr Delmi Contreras. Asked PA regarding specific type of AFO but stated that she will ask the doctor. PA informed PT that Per Dr. Adam, pt is NWB on LLE due to L heel wound and will not need an AFO at this time. PT-Balance Assessment Sitting Balance and Reactions Static Sitting Balance Ability Good Dynamic Sitting Balance Ability Fair Standing Balance and Reactions Static Standing Balance Ability Poor Dynamic Standing Balance Ability Poor Device Used FWW M5 PT-IP Objective Assessments Start: 10/12/23 16:47 Freq: NEEDED Status: Active Protocol: Document 10/12/23 14:20 AB (Rec: 10/12/23 17:18 AB [id number]) Orientation Orientation/Cognition Level of Alertness Alert Orientation Name,Place,Situation Language Function Ability No Deficits Noted Safety Awareness Decreased Safety Awareness Memory Description Short Term Impaired Gross Range of Motion Lower Extremity ROM Assessment Within Functional Limits Strength Lower Extremity Strength Assessment Left Impaired Hip 3+/5 Knee 3+/5 Ankle 1/5 Comments Strength Comments (+) L foot drop M6 PT-IP Treatment Start: 10/12/23 16:47 Freq: NEEDED Status: Active Protocol: Document 10/12/23 14:20 AB (Rec: 10/12/23 17:18 AB [id number]) Physical Therapy Treatment Education Education Provided Precautions,Weight Bearing Status,Safety M7 PT-IP Assessment and Plan Start: 10/12/23 16:47 Freq: NEEDED Status: Active Protocol: Document 10/12/23 14:20 AB (Rec: 10/12/23 17:18 AB [id number]) PT Summary Assessment and Plan Potential Rehabilitation Potential Fair Status of Condition at Evaluation Evolving Summary Impairments Pain,ROM,Strength,Balance, Coordination,Sensation,Tone, Cognition,Bed Mobility, Transfers,Gait,Activity Tolerance Assessment Summary pt is an 83 y/o M who presented to the ED due to hypotension and urinary retention. pt admitted for UTI and hematuria. pt also presents with L heel eschar and is NWB on LLE at this time . pt s/p L REILLY posterior approach 09/05/23 and has LLE posterior precautions. pt requiring max A x 1-2 for bed mobility and max A x 2 for sit to stand. max A x 1-2 for standing balance using FWW for support. unable to complete transfer at this time due to bowel incontinence at this time. pt will require SNF rehab to improve overall mobility. Goals Bed Mobility Goal Minimal Assistance Transfer Goal Minimal Assistance,Front Wheeled Walker Gait Goal Minimal Assistance,Front Wheel Walker Gait Distance 15 Other Goals improve bed mobility, transfers and ambulation using FWW ~ 50 ft CGA Days to Meet Goals 10 Frequency of Treatment Frequency Of Treatment Once a Day Treatment Plan Physical Therapy Treatment Plan Bed Mobility Training,Transfer Training,Gait Training, Therapeutic Exercise,Balance Retraining,Post Op Education, Discharge Planning,Hot or Cold Pack,Neuromuscular Re-ed, Coordination Retraining,Manual Therapy Precautions Posterior Hip Precautions No Hip Flexion > 90 degrees,No Hip Internal Rotation,No Hip Adduction Weight Bearing Status Weight Bearing Status Non-Weight Bearing Allowed Weight Bearing Amount (enter % LLE NWB or #) (%) Recommendations To Nursing Amount of Assist Needed Mechanical Lift Discharge Recommendations PT Discharge Recommendations SNF Rehab Transportation Needs at Discharge Wheelchair/Cabulance,Stretcher /Ambulance
[2023-10-12 16:00] VITALS: BP 130/66; PULSE 96; RESP 16; TEMP 37.1; O2SAT 93
[2023-10-12 16:33] LABS: Clostridium Difficile Tox PCR Negative for C. diff (Negative)
[2023-10-12] MEDS: cefTRIAXone 2,000 MG in SODIUM CHLORIDE 0.9% 100 ML 200 MG IV (17:18)
[2023-10-12] MEDS: TAMSULOSIN 0.4 MG CAPSULE PO (21:19)
[2023-10-12] MEDS: FINASTERIDE 5 MG TABLET PO (21:19)
[2023-10-12] MEDS: LOPERAMIDE 2 MG CAPSULE PO (21:19)
[2023-10-12 21:40] VITALS: BP 135/69; PULSE 93; RESP 17; TEMP 36.6; O2SAT 92
[2023-10-12] MEDS: ACETAMINOPHEN 325 MG TABLET 650 MG PO (23:58)
[2023-10-13 06:24] VITALS: BP 113/62; PULSE 79; RESP 18; TEMP 35.9; O2SAT 95
[2023-10-13 07:41] VITALS: PULSE 85; O2SAT 96
[2023-10-13 07:42] VITALS: BP 140/70; PULSE 85; O2SAT 97
[2023-10-13] MEDS: ASPIRIN 81 MG CHEW TAB PO (08:27)
[2023-10-13] MEDS: INSULIN LISPRO 100 UNIT/ML 3ML VIAL SUBCUT ×2 (08:28→12:08)
[2023-10-13] MEDS: METFORMIN HCL 500 MG TABLET PO (08:28)
[2023-10-13] MEDS: allopurinoL 100 MG TABLET 300 MG PO (08:28)
[2023-10-13] MEDS: LOPERAMIDE 2 MG CAPSULE PO (08:28)
[2023-10-13] MEDS: LORATADINE 10 MG TABLET PO (08:28)
--- NOTE | 2023-10-13 08:28 | PM.PN.1 ---
Subjective Subjective Interval history: Patient evaluated along with our internal medicine colleagues this morning. Resting comfortably. No acute distress. No new issues. Initial history from prior progress note: Garrett is a pleasant 83 year old male who is s/p Left total hip arthroplasty posterior approach by Dr. Contreras on 09/05/23 discharged to SNF and now re-admitted d/t hematuria. Orthopedics was consulted for evaluation of a newly developed left heel pressure ulcer with eschar. Patient has a new onset left foot drop s/p left total hip and was to be fitted with an AFO however this has not happened d/t the development of a left heel pressure ulcer. Patient states he first noticed the ulcer forming about 2 weeks after his total hip surgery. He denies any significant left heel pain at rest, states his pain is controlled with Tylenol as needed. 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 He has been getting weekly wound care at [facility] and dressing changes from the SNF nursing staff every other day. Exam Vital Signs (past 8 hours): - 10/13/23 06:24 10/13/23 07:41 10/13/23 07:42 Temperature 96.7 F L Pulse Rate 79 85 Respiratory Rate 18 Blood Pressure 113/62 140/70 Pulse Oximetry 95 96 Oxygen Flow Rate 0 10/13/23 07:42 Temperature Pulse Rate 85 Respiratory Rate Blood Pressure Pulse Oximetry 97 Oxygen Flow Rate Fraction of Inspired Oxygen 28 SaO2/FiO2 Ratio 328 Oxygen Delivery Method Room Air Oxygen Flow Rate 0 Narrative Exam Narrative: Left lower extremity demonstrates absent sensation in a peroneal nerve distribution in the foot. Reports intact sensation in a tibial nerve distribution, importantly including the area around the heel. Reports intact sensation in the area of the eschar in the heel. Able to plantar flex his hallux and ankle with 2/5 strength. 0/5 strength with dorsiflexion of the hallux and ankle. Dressing taken down over the heel reveals eschar. There is no palpable calcaneus in the wound. The wound depth is consistent with skin eschar only. There was no purulence. There is mild appropriate surrounding erythema. Well healing posterior hip surgical incision site without erythema or drainage. A dressing is in place today with Xeroform, adhesive padding, and Kerlix Objective Imaging Left foot x-ray: My impression: Left foot x-ray personally reviewed. In the area of the heel eschar there is abundant soft tissue between the calcaneus itself and the skin, indicative that this is likely not a full-thickness pressure ulcer going down to bone Labs 10/09/23 09:51 10/09/23 09:51 Labs: Laboratory Results - last 24 hr 10/12/23 15:12 C. difficile Tox (PCR) Negative for c. diff PFS Medical History Urinary catheter dysfunction Urinary retention Ni catheter in place (2023) Edema Osteoarthritis Uses self-applied continuous glucose monitoring device Diabetes (~2022) Kidney stones Enlarged prostate HLD (hyperlipidemia) Seasonal allergies VILLA on CPAP Surgical History Hx of laminectomy History of total left knee replacement History of total right knee replacement H/O vasectomy Hx of hernia repair Social History household members: none other: He lives alone on [facility]. Smoking Status: Former smoker alcohol intake: never Assessment & Plan Assessment and plan (1) S/P total left hip arthroplasty: Status: Acute (2) Pressure ulcer, heel, left, unstageable: Status: Acute Plan Plan to discharge back to SNF per medicine/urology once appropriate. Per discussions with internal medicine this could be as early as tomorrow He will need outpatient wound care, referral previously sent to wound care for left heel pressure ulcer. Patient will need his heel to be floated AT ALL TIMES. Right AFO brace needs to be fitted for patient and specially made so it does not add any pressure to the heel, the AFO brace should be used to aid in patient ambulation, Continue with PT for L REILLY. Continue to maintain posterior hip precautions, no bending past 90 degrees at the left hip, no internal rotation, no crossing legs at the knees.
[2023-10-13] MEDS: INSULIN GLARGINE 100 UNIT/ML 3ML PEN 29 UNIT SUBCUT (08:29)
--- NOTE | 2023-10-13 08:39 | P.DS_ITS ---
History of Present Illness History of Present Illness Chief complaint: Urinary retention Narrative: From night doctor: 83 y/o with PMH of BPH with indwelling Ni, recent hospitalization for elective Lt [facility]Y with subsequent DC to SNF, developed hematuria few days ago and was seen several times in the ED. Today he presented with clogged Ni. Started on CBI and at one point became hypotensive, possible vagal reaction. Dropped Hb by 2 points. Discussed with urologist, admitted to ICU with hematuria, hypotension and hemorrhagic anemia. He is doing better this morning. He did have hematuria which resolved with TBI. The emergency physician contact the Urology last night and they will see him today. The patient has had a catheter in for several months due to retention and has a planned procedure with the urologist in [place] in the near future. He is also on finasteride and Flomax. The patient notes that hematuria as a new and a recent issue which followed a catheter change. Presumably this related to catheter-induced trauma. He denies recent symptoms of infection. Discharge Providers Provider Date of admission: 10/09/23 00:46 Discharge Date: 10/13/23 Primary care physician: DANDRE Ashraf Consults: 10/11/23 11:00 Consult to Orthopedic Surgery Routine Comment: Consulting Provider: [facility] Reason for consultation: left heel wound Has provider been notified: Yes 10/11/23 11:03 Consult to Physical Therapy Evaluate & Treat Comment: Physician Instructions: Evaluate and Treat Discharge provider: Garcia Velazco MD Summary Hospital Course Discharge Diagnosis: 1. Hypotension, new and resolved. 2. Gross hematuria, present on admission and improved. 3. UTI and fever (Klebsiella) which are catheter associated, present on admission and improving. 4. Obstructed Ni catheter, present on admission and resolved (blood clots). 5. BPH, present on admission and active. 6. Hypertension, not present on admission are active. 7. Blood loss anemia, present on admission and stable. 9. VILLA, present on admission and stable. 10. Gout, present on admission and stable 11. Heel ulcer (2 weeks), present on admission and active. Hospital Course: This patient was admitted with recurrent hematuria. He has had an indwelling Ni in for over 6 months for retention with a planned definitive procedure and [place] at some point with Urology. The patient presented with recurrent hematuria and obstruction of Ni. He required a transfusion initially and was treated with TXA. The patient underwent continuous bladder irrigation for approximately 48 hours and then this was stopped. He improved in his hematuria resolved. Dr. Garcia, urology consulted. There was felt to be no need for an urgent procedure. The patient also has a left heel wound which was present on admission. This is evaluated by Orthopedics with ongoing instructions for wound care as well as floating the heel, which means being sure that the heel is elevated without any direct pressure underneath the heel while in the bed. Ultimately an AFO the placed after the heel wound is sufficiently improved. He was also diagnosed with a Klebsiella pneumonia and treated with ceftriaxone. He will have cephalexin prescribed for an additional 7 days the time of discharge. Status at Discharge Cognitive/behavioral status at discharge: oriented Functional status at discharge: uses cane/walker Overall status at discharge: patient is progressing back to baseline Time Spent with Patient Time spent: Greater than 30 minutes Exam Vital Signs (past 8 hours): - 10/13/23 06:24 10/13/23 07:41 10/13/23 07:42 Temperature 96.7 F L Pulse Rate 79 85 Respiratory Rate 18 Blood Pressure 113/62 140/70 Pulse Oximetry 95 96 Oxygen Flow Rate 0 10/13/23 07:42 Temperature Pulse Rate 85 Respiratory Rate Blood Pressure Pulse Oximetry 97 Oxygen Flow Rate Fraction of Inspired Oxygen 28 SaO2/FiO2 Ratio 328 Oxygen Delivery Method Room Air Oxygen Flow Rate 0 Narrative Exam Narrative: NAD, alert and oriented. Fluent speech. Lungs are clear, normal rate and effort. Heart is regular, no murmur gallop or rub. Abdomen is soft, non distended. Extremities are free of edema. Left heel, dry eschar. Examined with Dr Ren on the day of discharge. Objective Labs 10/09/23 09:51 10/09/23 09:51 Labs: Laboratory Results - last 24 hr 10/12/23 15:12 C. difficile Tox (PCR) Negative for c. 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 Smoking Status: Former smoker alcohol intake: never Discharge Assessment & Plan Assessment and Plan Assessment: 1. Hypotension, new and resolved. 2. Gross hematuria, present on admission and improved. 3. UTI and fever (Klebsiella) which are catheter associated, present on admission and improving. 4. Obstructed Ni catheter, present on admission and resolved (blood clots). 5. BPH, present on admission and active. 6. Hypertension, not present on admission are active. 7. Blood loss anemia, present on admission and stable. 9. VILLA, present on admission and stable. 10. Gout, present on admission and stable 11. Heel ulcer (2 weeks), present on admission and active. Plan of Treatment: Discharge back to [facility] for ongoing rehabilitation efforts. He will continue cephalexin q.i.d. for 7 additional days, and the left heel we will have wound care and be floated at all times. Close follow up with Orthopedics, Dr. Gracie Contreras. Discharge Plan Discharge Plan Patient Disposition: SNF Transfer to: [facility] Under care of provider: Dr Chou. Provider Discharge Comment: Continue with wound care and dressing changes of the right heel at SNF. Right foot AFO needs to be fitted and specially made to avoid pressure on the heel. Discharge orders & Medications Prescriptions: New cephalexin 500 mg capsule 500 mg PO QID Qty: 30 0RF Continued hydrochlorothiazide 12.5 MG capsule 12.5 mg PO DAILY Qty: 0 Rx Instructions: hold SBP<100 or HR <60 tamsulosin 0.4 mg Capsule 0.4 mg PO BEDTIME simvastatin 20 mg Tablet 20 mg PO DAILY allopurinol 300 mg Tablet 300 mg PO DAILY acetaminophen 500 mg Capsule 500 mg PO Q4H PRN (Reason: Pain) finasteride 5 mg Tablet 5 mg PO BEDTIME loratadine 10 mg Tablet 10 mg PO DAILY insulin aspart U-100 [Novolog FlexPen U-100 Insulin] 100 unit/mL (3 mL) Insulin Pen 16 unit SUBCUT BID insulin glargine [Lantus Solostar U-100 Insulin] 100 unit/mL (3 mL) Insulin Pen 29 unit SUBCUT DAILY lisinopril 10 MG tablet 20 mg PO DAILY Rx Instructions: hold SBP<100 or HR <60 aspirin [Aspirin Childrens] 81 mg Tablet,Chewable 81 mg PO BID Rx Instructions: for DVT prophylaxis until 10/16/23 metformin 500 mg Tablet Extended Release 24 Hr 500 mg PO DAILY oxycodone 5 mg capsule 5 mg PO Q4H PRN (Reason: pain) Qty: 20 0RF Discontinued tramadol 50 mg Tablet 50 mg PO Q6H PRN (Reason: Pain (Scale Score 7-10)) Medication counseling provided by Pharmacist: No Follow up/Referrals: Naomie Helm ARNP [Primary Care Provider] - Gracie Contreras MD [Physician] - (Follow up as scheduled at Located within [facility] on 10/16/[address] Contreras at 2:30 p.m.) Discharge Health Status Multidrug resistant organism: MRSA Precautions: Contact Diet/Activity/Treatments Diet: Carb-consistent/Diabetic Liquid consistency: Normal/Thin Skin/Wound/Dressing Care Report to your healthcare provider any signs of infection, such as:: chills, fever, night sweats, increased pain and unusual drainage Special Rehabilitation Services Rehab type: Physical therapy and Occupational therapy Visit Report/Discharge Packet Instructions: DI for Hematuria Stand Alone Forms: Patient Portal/API Discharge Data Primary Care Provider: Naomie Helm
--- NOTE | 2023-10-13 09:37 | CM.DPNOTE ---
DCP Note HOSPICE VOLUNTEER reviewed EMR. Per hospitalist, pt cleared to return to [facility] today. HOSPICE VOLUNTEER coordinated with November at - transport set up for 2pm today. HOSPICE VOLUNTEER updated RN and gave report number. HOSPICE VOLUNTEER updated Pt. Agreeable to plan. Denies other questions or need HOSPICE VOLUNTEER updated INTEGRATION AIDE. HOSPICE VOLUNTEER faxed signed med list and scripts and placed in chart. From november at - kindly requested provider to edit dc sum. provider agreed to edit doc. HOSPICE VOLUNTEER will fax updated DC Sum when available. Plan: anticipate dc today to [facility] at 2[facility]. CM team will continue to follow closely. CIPRIANO Angulo
[2023-10-13] MEDS: ACETAMINOPHEN 325 MG TABLET 650 MG PO (13:07)
== END 2023-10-13 14:17 | DRG 699 ==
LOC: ED 10-09 00:45 → AC 10-09 00:47 → ICU 10-09 01:26
PROVIDERS: Hospitalist; Admitting Provider Internal Medicine; Emergency Provider Emergency Medicine; Family Provider Nurse Practitioner Family; PCP Nurse Practitioner; Referring Provider Emergency Medicine; Visit Provider Internal Medicine
DX: T83.091A Other mechanical complication of indwelling urethral catheter, initial encounter (principal); D62 Acute posthemorrhagic anemia; T83.511A Infection and inflammatory reaction due to indwelling urethral catheter, initial encounter; N39.0 Urinary tract infection, site not specified; T83.83XA Hemorrhage due to genitourinary prosthetic devices, implants and grafts, initial encounter; E86.0 Dehydration; N40.1 Benign prostatic hyperplasia with lower urinary tract symptoms; R33.8 Other retention of urine; I10 Essential (primary) hypertension; G47.33 Obstructive sleep apnea (adult) (pediatric); M10.9 Gout, unspecified; I95.9 Hypotension, unspecified; L89.620 Pressure ulcer of left heel, unstageable; B96.89 Other specified bacterial agents as the cause of diseases classified elsewhere; E78.5 Hyperlipidemia, unspecified; E11.9 Type 2 diabetes mellitus without complications; Z79.4 Long term (current) use of insulin; Z79.84 Long term (current) use of oral hypoglycemic drugs; Z96.642 Presence of left artificial hip joint; Z87.891 Personal history of nicotine dependence
CPT/HCPCS: 36415; 51702; 73630; 74177; 80048; 80053; 81001; 82962; 85014; 85018; 85025; 85610; 86850; 86900; 86901; 87040; 87077; 87086; 87186; 87493; 87797; 94762; 96360; 96365; 96375; 97163; 99283; 99284; 99285; J0696; J1170; J1815; Q9967